=== PATIENT | female | born 1940 | race Hispanic/Latino ===

== ENCOUNTER 2017-04-01 16:24 | Inpatient (IN) | payer MEDICARE, OTHER ==
[2017-04-01 17:12] VITALS: BMI 34.7
[2017-04-01] MEDS ORDERED: Sodium Chloride 0.9% 500 ML IV STA (18:18)
[2017-04-01 18:54] LABS: PH,URINE 5.5 (4.7-8.0); URINE BILIRUBIN NEGATIVE (NEGATIVE); URINE BLOOD SMALL (NEGATIVE); URINE GLUCOSE (UA) NEGATIVE (NEGATIVE); URINE KETONE NEGATIVE (NEGATIVE); URINE LEUKOCYTE ESTERASE SMALL Leu/uL (NEGATIVE); URINE PROTEIN 100 mg/dL (<30 mg/dL)
[2017-04-01 18:59] LABS: URINE APPEARANCE CLOUDY (CLEAR); URINE COLOR YELLOW (YELLOW)
[2017-04-01 19:02] LABS: ADD MANUAL DIFF? NO
[2017-04-01 19:15] LABS: URINE AMORPHOUS SEDIMENT SMALL; URINE BACTERIA MOD (NEG); URINE WBC 20 - 25 /hpf (0-6)
[2017-04-01 19:17] LABS: BASO # 0.02 K/mm3 (0.0-2.0); BASO % 0.3 % (0.0-3.0); EOS % 0.4 % (1.5-5.0); GRAN # 5.52 (1.4-6.5); GRAN % 75.8 % (50.0-68.0); HEMATOCRIT 45.7 % (36.0-48.0); LYMPH # 1.2 (1.2-3.4); LYMPH % 16.8 % (22.0-35.0); MEAN CORPUSCULAR HEMOGLOBIN 31.1 pg (25.0-35.0); MEAN CORPUSCULAR HGB CONC 34.6 g/dl (31.0-37.0); MEAN PLATELET VOLUME 9.1 fl (7.0-11.0); MONO # 0.5 (0.1-0.6); MONO % 6.7 % (1.0-6.0); PLATELET COUNT 299 10^3/uL (120.0-450.0); RED CELL DISTRIBUTION WIDTH 13.2 % (11.5-14.5); WHITE BLOOD COUNT 7.3 10^3/ul (4.5-11.0)
[2017-04-01 19:22] LABS: ALB/GLOB RATIO 1.2 (1.1-1.8); ALKALINE PHOSPHATASE 81 U/L (38-133); ALT/SGPT 27 U/L (7-56); AST/SGOT 48 U/L (15-39); BILIRUBIN,TOTAL 1.1 mg/dL (0.2-1.3); BLOOD UREA NITROGEN 26 mg/dL (7-21); CALCIUM 10.2 mg/dL (8.4-10.5); CARBON DIOXIDE 24 mmol/L (21-33); CHLORIDE 100 mmol/L (98-107); GFR AFRICAN-AMERICAN > 60; GLUCOSE,RANDOM 98 mg/dL (70-110); POTASSIUM 4.2 mmol/L (3.6-5.0); SODIUM 137 mmol/L (132-148); TOTAL PROTEIN 8.3 g/dL (5.8-8.3)
[2017-04-01] MEDS ORDERED: cefTRIAXone 1 gm 1 GM/100 ML BAG IVPB STA (20:20)
--- NOTE | 2017-04-01 20:54 | ED PDOC ---
Arrival/HPI - General Chief Complaint: Weakness/Neurological Deficit Time Seen by Provider: 04/01/17 17:18 Historian: Patient, Family - History of Present Illness Narrative History of Present Illness (Text): 04/01/17 20:49 77yr old female presents today sent in by dr. wallace for dehydration and UTI. Per patient and family she has not been eating for the past 3 days. She is complaining of weakness and fatigue. She denies dysuria or urinary frequency. Denies chest pain or shortness of breath. Denies fevers at home. No vomiting patient denies dizziness. Denies headaches. Symptom Onset: Gradual Symptom Course: Worsening Quality: Aching Severity Level: 2 Past Medical History - Provider Review Nursing Documentation Reviewed: Yes - Travel History Have you recently traveled outside [place] w/in the past 3 mons?: No - Infectious Disease Hx of Infectious Diseases: None - Neurological Hx Dementia: Yes - Psychiatric Hx Substance Use: No - Anesthesia Hx Anesthesia: No Family/Social History - Physician Review Nursing Documentation Reviewed: Yes Family/Social History: Unknown Family HX Smoking Status: Never Smoked Hx Alcohol Use: No Hx Substance Use: No Allergies/Home Meds Allergies/Adverse Reactions: Allergies No Known Allergies Allergy (Verified 04/01/17 17:12) Home Medications: Home Meds Medication Instructions Recorded Confirmed Memantine HCl/Donepezil HCl 1 tab PO DAILY 04/01/17 04/01/17 [Namzaric Titration Pack] Review of Systems - Review of Systems Constitutional: Fatigue. absent: Fevers Respiratory: absent: SOB, Cough Cardiovascular: absent: Chest Pain, Palpitations Gastrointestinal: Abdominal Pain, Appetite Changes. absent: Constipation, Diarrhea, Nausea, Vomiting Genitourinary Female: absent: Dysuria, Frequency, Hematuria Musculoskeletal: absent: Arthralgias, Back Pain, Neck Pain Skin: absent: Rash, Pruritis Neurological: absent: Headache Physical Exam Vital Signs Reviewed: Yes Vital Signs Temp Pulse Resp BP Pulse Ox 04/01/17 21:11 95 H 17 152/95 H 98 04/01/17 20:24 95 H 17 137/93 H 98 04/01/17 17:16 97.9 F 92 H 18 119/80 95 Temperature: Afebrile Blood Pressure: Normal Pulse: Regular Respiratory Rate: Normal Appearance: Positive for: Well-Appearing, Non-Toxic, Comfortable Pain Distress: None Mental Status: Positive for: Alert and Oriented X 3 - Systems Exam Head: Present: Atraumatic Mouth: Present: Dry Neck: Present: Normal Range of Motion Respiratory/Chest: Present: Clear to Auscultation Cardiovascular: Present: Regular Rate and Rhythm Abdomen: Present: Tenderness (minimal lower abdominal tenderness), Normal Bowel Sounds. No: Distention, Peritoneal Signs, Rebound, Guarding, Hernias Lower Extremity: No: Edema Neurological: Present: GCS=15, Speech Normal Skin: Present: Warm, Dry Psychiatric: Present: Alert, Oriented x 3 Medical Decision Making ED Course and Treatment: 04/01/17 20:55 77yr old female with decreased appetite and abdominal and dehydration. cbc: wbc cmp: bun 26 cr ua + wbcs + bacteria blood and urine culture pending ekg; normal sinus rhythm at 92 bpm normal axis normal intervals no ST elevations CT abd/pelvis; FINDINGS: Limitations: Motion artifact - mild. Lack of intravenous contrast. Lower thorax: Minimal atelectasis/scarring. ABDOMEN: Liver: Hepatic cyst. Gallbladder and bile ducts: No calcified stones. No ductal dilation. Pancreas: Unremarkable. No ductal dilation. Spleen: No splenomegaly. Adrenals: No mass. Kidneys and ureters: No renal calculi. No hydronephrosis. Stomach and bowel: Several diverticula within sigmoid colon. No associated inflammatory stranding. No definite mural thickening. Few mildly distended loops of small bowel, likely ileus. Appendix: Normal caliber. No inflammation. PELVIS: Bladder: Unremarkable. No stones. Reproductive: Enlarged, lobulated uterus with scattered coarse calcifications. ABDOMEN and PELVIS: Intraperitoneal space: No significant fluid collection. No free air. Bones/joints: Degenerative changes of hips and spine. No acute fracture. Soft tissues: Unremarkable. Vasculature: Unremarkable. No aneurysm. Lymph nodes: Multiple enlarged paraaortic lymph nodes, up to 2.7 cm short axis. IMPRESSION: 1. Retroperitoneal lymphadenopathy. Clinical correlation and follow up are recommended. 2. Probable fibroid uterus. 3. Incidental/non-acute findings are described above. rocephin 1g IV 04/01/17 22:42 pt eating in er. 04/01/17 23:[address] chandler choudhary; will admit observational status to med/ surg for dehydration and UTI. impression; dehydration, uti. observational status to med/surg 04/01/17 23:01 - Lab Interpretations Lab Results: 04/01/17 18:20 04/01/17 18:20 Lab Results 04/01/17 18:20: WBC 7.3, RBC 5.08, Hgb 15.8, Hct 45.7, MCV 90.0, MCH 31.1, MCHC 34.6, RDW 13.2, Plt Count 299, MPV 9.1, Gran % 75.8 H, Lymph % (Auto) 16.8 L, Perkins % (Auto) 6.7 H, Eos % (Auto) 0.4 L, Baso % (Auto) 0.3, Gran # 5.52, Lymph # 1.2, Perkins # 0.5, Eos # 0.0, Baso # 0.02 04/01/17 18:20: Sodium 137, Potassium 4.2, Chloride 100, Carbon Dioxide 24, Anion Gap 17, BUN 26 H, Creatinine 0.9, Est GFR ( Amer) > 60, Est GFR ( Non-Af Amer) > 60, Random Glucose 98, Calcium 10.2, Total Bilirubin 1.1, AST 48 H, ALT 27, Alkaline Phosphatase 81, Total Protein 8.3, Albumin 4.5, Globulin 3.8 , Albumin/Globulin Ratio 1.2 04/01/17 18:20: Urine Color Yellow, Urine Appearance Cloudy, Urine pH 5.5, Ur Specific [place] >= 1.030, Urine Protein 100 H, Urine Glucose (UA) Negative, Urine Ketones Negative, Urine Blood Small H, Urine Nitrate Negative, Urine Bilirubin Negative, Urine Urobilinogen 2.0 H, Ur Leukocyte Esterase Small H, Urine RBC 2 - 5, Urine WBC 20 - 25, Ur Epithelial Cells 10 - 12, Amorphous Sediment Small, Urine Bacteria Mod, Urine Other Sulfa cr - RAD Interpretation Radiology Orders: 04/01/17 18:18 ABD & PELVIS W/O PO OR IV CONT [CT] Stat 04/01/17 20:51 CHEST ONE VIEW [RAD] Stat - Medication Orders Current Medication Orders: Sodium Chloride (Sodium Chloride 0.9%) 1,000 mls @ 100 mls/hr IV .Q10H PAMELA Discontinued Medications Sodium Chloride (Sodium Chloride 0.9%) 500 mls @ 999 mls/hr IV .Q31M STA Stop: 04/01/17 18:48 Last Admin: 04/01/17 18:20 Dose: 999 mls/hr Ceftriaxone Sodium (Rocephin 1 Gram Ivpb) 1 gm in 100 mls @ 200 mls/hr IVPB STAT STA PRN Reason: Protocol Stop: 04/01/17 20:49 Last Admin: 04/01/17 21:06 Dose: 200 mls/hr Disposition/Present on Arrival - Present on Arrival Any Indicators Present on Arrival: No History of DVT/PE: No History of Uncontrolled Diabetes: No Urinary Catheter: No History of Decub. Ulcer: No History Surgical Site Infection Following: None - Disposition Have Diagnosis and Disposition been Completed?: Yes Diagnosis: Dehydration, Urinary tract infection Disposition: HOSPITALIZED Disposition Time: 22:43 Patient Problems: Current Active Problems Problem Status Onset Dehydration Acute Urinary tract infection Acute Condition: FAIR Referrals: Darinel Wallace MD [Primary Care Provider] - Follow up with primary
--- NOTE | 2017-04-01 22:11 | CT ---
EXAM: CT Abdomen and Pelvis Without Intravenous Contrast CLINICAL HISTORY: 77 years old, female; Pain; Abdominal pain; Acute TECHNIQUE: Axial computed tomography images of the abdomen and pelvis without intravenous contrast. This CT exam was performed using one or more of the following dose reduction techniques: automated exposure control, adjustment of the mA and/or kV according to patient size, and/or use of iterative reconstruction technique. Coronal and sagittal reformatted images were created and reviewed. COMPARISON: No relevant prior studies available. FINDINGS: Limitations: Motion artifact - mild. Lack of intravenous contrast. Lower thorax: Minimal atelectasis/scarring. ABDOMEN: Liver: Hepatic cyst. Gallbladder and bile ducts: No calcified stones. No ductal dilation. Pancreas: Unremarkable. No ductal dilation. Spleen: No splenomegaly. Adrenals: No mass. Kidneys and ureters: No renal calculi. No hydronephrosis. Stomach and bowel: Several diverticula within sigmoid colon. No associated inflammatory stranding. No definite mural thickening. Few mildly distended loops of small bowel, likely ileus. Appendix: Normal caliber. No inflammation. PELVIS: Bladder: Unremarkable. No stones. Reproductive: Enlarged, lobulated uterus with scattered coarse calcifications. ABDOMEN and PELVIS: Intraperitoneal space: No significant fluid collection. No free air. Bones/joints: Degenerative changes of hips and spine. No acute fracture. Soft tissues: Unremarkable. Vasculature: Unremarkable. No aneurysm. Lymph nodes: Multiple enlarged paraaortic lymph nodes, up to 2.7 cm short axis. IMPRESSION: 1. Retroperitoneal lymphadenopathy. Clinical correlation and follow up are recommended. 2. Probable fibroid uterus. 3. Incidental/non-acute findings are described above.
[2017-04-01] MEDS ORDERED: Sodium Chloride 0.9% 1,000 ML IV SCH (22:45)
--- NOTE | 2017-04-02 08:19 | RAD ---
PROCEDURE: CHEST RADIOGRAPH, 1 VIEW HISTORY: abd pain/dehydration COMPARISON: Comparison chest 12/12/2015 FINDINGS: LUNGS: Poor inspiration with low lung volumes, mild crowded bronchovascular markings and mild bibasilar atelectasis. Small nodular density left upper lung field of located between the left posterior 5th and 6th ribs could represent vessel on end artifact versus small granuloma unchanged. PLEURA: No pneumothorax or pleural fluid seen. CARDIOVASCULAR: Normal. OSSEOUS STRUCTURES: No significant abnormalities. VISUALIZED UPPER ABDOMEN: Normal. OTHER FINDINGS: None. IMPRESSION: Poor inspiration with low lung volumes, mild crowded bronchovascular markings and mild bibasilar atelectasis. Small nodular density left upper lung field of located between the left posterior 5th and 6th ribs could represent vessel on end artifact versus small granuloma unchanged.
[2017-04-02] MEDS: cefTRIAXone 1 gm 1 GM/100 ML BAG IVPB SCH (10:30)
--- NOTE | 2017-04-02 14:50 | HP ---
HISTORY OF PRESENT ILLNESS: A 77-year-old white female with a history of mild dementia and mild cogn itive impairment on donepezil and Namenda. The patient had an acute episode approximately 3-4 days l oss of appetite, loss of balance, extreme fatigue, not getting out of bed, not eating, not drinking, seen in the office and found to have a urinary tract infection with dehydration, admitted to the ER. The patient also had difficulty ambulating and weakness in both lower extremities. On admission, esther bill was found to have pyuria and bacteriuria, otherwise unremarkable except for CT of the abdomen showe d diffuse retroperitoneal lymphadenopathy. PHYSICAL EXAMINATION: GENERAL: The patient is without complaints. She is more stable this morning. She has somewhat of a n appetite this morning. HEENT: Within normal limits. HEART: Regular sinus rhythm. CHEST: Clear to auscultation and percussion. ABDOMEN: Obese, but benign. EXTREMITIES: Without cyanosis, clubbing or edema. PLAN: To start physical therapy and occupational therapy. Discussed possible biopsy of retroperiton eal lymphadenopathy and continue IV antibiotics and hydration. Darinel Wallace MD cc: [id number] TT: 04/02/2017 14:49:27 tn
--- NOTE | 2017-04-02 17:41 | CARD ---
APPROVED REPORT EKG Measurement Heart [id number] HI 130P18 [id number] <Conclusion> Normal sinus rhythm Normal ECG
--- NOTE | 2017-04-03 08:52 | PN ---
DATE: 04/03/2017 A 77-year-old white female admitted to the hospital with dehydration, urinary tract infection. She w as found to have intra-abdominal lymphadenopathy on CT. Not eating, not drinking, change in mental s tatus, confusion. The patient is still sleeping, urinating excessively. Vital signs are stable. Sh landy is afebrile. She responded to antibiotics and steroids. Gram-negative rods in her urine. Blood c ultures are negative. I will discuss the lymphadenopathy with Dr. Gregg Lockwood as far as a possible b iopsy and a neurological consultation because of her disordered mentation. Darinel Wallace MD cc: [id number] TT: 04/03/2017 08:51:21 Confirmation # [id number] Dictation # [id number] en
[2017-04-03] MEDS: cefTRIAXone 1 gm 1 GM/100 ML BAG IVPB SCH (09:53)
[2017-04-03 13:15] LABS: INR 1.09 (0.93-1.08); PARTIAL THROMBOPLASTIN TIME 26.5 Seconds (23.7-30.8)
--- NOTE | 2017-04-03 14:15 | CON ---
DATE: 04/03/2017 HISTORY OF PRESENT ILLNESS: A 77-year-old female with a past medical history of mild dementia and ca me from Dr. Wallace's office for dehydration and UTI, has not been eating for the last 3 days and d enies any nausea or vomiting, no shortness of breath, and difficulty ambulating. PAST MEDICAL HISTORY: As above. SOCIAL HISTORY: Does not smoke, does not drink. ALLERGIES: No known drug allergies. HOME MEDICATIONS: Aricept, Namenda, Namzaric. REVIEW OF SYSTEMS: A 10-point review of system was negative except fatigue. PHYSICAL EXAMINATION: VITAL SIGNS: Blood pressure 137/93. HEENT: Normocephalic, atraumatic. NECK: Supple. NEUROLOGIC: Awake, alert, oriented to self, not to the time, does not know the month and year. The patient had loss of appetite, loss of balance and fatigue and was not getting out of bed. HEENT: Normocephalic, atraumatic. NECK: Supple. NEUROLOGIC: Awake, alert, oriented x 3. No aphasia. Cranial nerves II-XII were tested. Pupils john ctive. EOM intact. No facial asymmetry. Tongue midline. Motor examination: Moves all the extremi ties equally. Tone normal. Deep tendon reflexes are 1+. Both plantars are downgoing. Sensory soraida sly intact. No asymmetry. Tongue midline. Able to stand and bear weight on the feet. IMPRESSION: Deconditioned, fatigue and tiredness. The patient had IV fluids and hydrated and now fe eling better. CT of the abdomen and pelvis showed retroperitoneal lymphadenopathy and workup is in p rogress. PLAN: Continue present management. We will follow up. Dallin Dunlap MD cc: [id number] TT: 04/03/2017 14:15:24 Confirmation # [id number] Dictation # [id number] kecia
[2017-04-03] MEDS ORDERED: Midazolam 2 MG/2 ML VIAL ONE (14:45)
[2017-04-03] MEDS ORDERED: Oxycodone/Acetaminophen 5/325 mg Tab PO PRN (15:27)
--- NOTE | 2017-04-03 16:20 | CP.PCM.PCO ---
Physician Communication Note - Physician Communication Note Physician Communication Note: pt has dementia with mild delirium from uti/ dehydration. c/w PT/OT,sign off
[2017-04-03] MEDS: Sodium Chloride 0.45% 1,000 ML IV SCH (17:30)
--- NOTE | 2017-04-03 17:43 | CT ---
PROCEDURE: CT guided left periaortic lymph node biopsy. HISTORY: Enlarged retroperitoneal lymph nodes. Evaluate for lymphoma versus metastatic disease. PHYSICIAN(S): Gregg Lockwood MD. TECHNIQUE: The relative risks and indications of the procedure were explained to the patient and her and consent obtained. The patient was placed prone on the CT scanner and preliminary images through the mid abdomen obtained. Conscious sedation and monitoring were provided throughout the procedure by a nurse. Enlarged left periaortic lymphadenopathy below the renal vessels was elected for biopsy. A left paraspinal approach was selected and the area prepped and draped in the usual sterile fashion. 1% Xylocaine was used to anesthetize the skin and soft tissues. A 17-gauge guiding needle was advanced into the 4.5 cm left periaortic lymphadenopathy. Its position was confirmed with CT. Using coaxial technique, multiple core biopsies were obtained. The postprocedure images show no evidence of significant hemorrhage. IMPRESSION: 1. CT-guided left periaortic lymph node biopsy as described above. Specimens were sent for histology and flow cytometry
[2017-04-03] MEDS ORDERED: Gadodiamide 287 MG/ML VIAL (15ML) IV ONE (19:35)
--- NOTE | 2017-04-03 20:34 | MRI ---
EXAM: MR Head Without and With Intravenous Contrast CLINICAL HISTORY: The patient age is 77 years old and is female; Signs and symptoms; Altered mental status/memory loss; Confusion or disorientation Facility exam id and description: Mri br cs brain w wo contrast TECHNIQUE: Magnetic resonance images of the head/brain without and with intravenous contrast in multiple planes. CONTRAST: 15 mL of Omniscan administered intravenously. EXAM DATE/TIME: 04/03/2017 8:38 AM COMPARISON: No relevant prior studies available. FINDINGS: Brain: There is no restricted diffusion within the brain to suggest acute ischemic change. There are multiple foci of high FLAIR signal intensity within the cerebral white matter. There is no mass effect or restricted diffusion associated with these foci. In a patient this age, this likely represents chronic small vessel ischemic disease. There is prominence of the ventricles and sulci, compatible with atrophy. Small foci of T2 hyperintensity are seen within the bilateral basal ganglia and right thalamus, consistent with chronic ischemic change. No abnormally enhancing intracranial mass is visualized. No cerebral edema. Ventricles: See above. Bones/joints: No acute abnormality. Sinuses: There is minimal mucosal thickening of scattered ethmoid air cells. No acute sinusitis. Mastoid air cells: No mastoid effusion. Orbits: No acute abnormality, as visualized. IMPRESSION: 1. There is no restricted diffusion within the brain to suggest acute ischemic change. 2. There are multiple foci of high FLAIR signal intensity within the cerebral white matter. In a patient this age, this likely represents chronic small vessel ischemic disease. 3. Atrophy. 4. Additional chronic ischemic changes are noted above. 5. Incidental/non-acute findings are described above.
[2017-04-04 03:21] LABS: TOTAL PROTEIN, SERUM 6.1 g/dL (6.1-8.1)
[2017-04-04 07:14] LABS: HEMATOCRIT 37.9 % (36.0-48.0); MEAN CELL VOLUME 90.2 fL (80.0-105.0); MEAN CORPUSCULAR HGB CONC 33.2 g/dl (31.0-37.0); MEAN PLATELET VOLUME 8.9 fl (7.0-11.0); RED CELL DISTRIBUTION WIDTH 13.7 % (11.5-14.5); WHITE BLOOD COUNT 5.5 10^3/ul (4.5-11.0)
[2017-04-04 07:34] LABS: BLOOD UREA NITROGEN 9 mg/dL (7-21); CALCIUM 8.8 mg/dL (8.4-10.5); CARBON DIOXIDE 25 mmol/L (21-33); CHLORIDE 104 mmol/L (98-107); GFR AFRICAN-AMERICAN > 60; GLUCOSE,RANDOM 86 mg/dL (70-110); POTASSIUM 3.4 mmol/L (3.6-5.0); SODIUM 137 mmol/L (132-148)
[2017-04-04 07:57] VITALS: RESP 20; O2SAT 100
[2017-04-04] MEDS ORDERED: MethylPREDNISolone Depo 40 mg/ml Inj IM ONE (08:35)
[2017-04-04] MEDS ORDERED: Bupivacaine 0.5% Inj(30mL) IJ ONE (08:35)
--- NOTE | 2017-04-04 08:52 | PN ---
DATE: 04/04/2017 SUBJECTIVE: A 77-year-old white female with a history of dementia and urosepsis, change in mental st atus, diffuse intraabdominal and pelvic lymphadenopathy, abnormal uterus on CAT scan. The patient petersen d a transabdominal CT-guided biopsy by Dr. Gregg Lockwood of her lymph nodes which are waiting for patho logy. The patient is stable. Vital signs are stable. She is less ____. She is still complaining of being weak, but she is tolerating her diet well. She has less urinary tract symptoms and she is afebrile. The patient most likely will be discharged home today if stable, to follow up with gynecology as an outpatient and follow up on the pathology as an outpatient. Darinel Wallace MD cc: [id number] TT: 04/04/2017 08:51:39 Confirmation # [id number] Dictation # [id number] tn
--- NOTE | 2017-04-04 09:34 | CON ---
DATE: 04/04/2017 A 77-year-old female in 567, bed 1. Dr. Wallace is the physician. I was asked to see her for bila teral knee pain and bilateral hip pain. She has more pain in the left knee than the right. She has had it for 2 or 3 years. She used to be a armed guard. No history of injury, but there is defini te evidence of osteoarthritis of both knees, left worse than the right, with medial joint line pain a nd I can feel osteophytes. Her range of motion: She lacks to full extension but could flex to 100 d egrees, basically the same bilaterally. But the right hip is more stiff than the left hip with decre ased internal rotation, so I am anxious to see the x-rays of the hips and the knees. Neither one wer e done yet, so I will wait to see those. But, because of her pain factor and the chance that she gregoria ht go home today, I injected the left knee with Depo-Medrol and Marcaine which will have to be done a nyway, and I will see the response to that. Depending on the response of the left knee, we will do s omething to the right knee, like another injection, when the x-rays to come back. In the meantime, I will just give physical therapy, ambulation with a walker. FINAL DIAGNOSES: Bilateral knee pain, suspect osteoarthritis. Right worse than left hip discomfort, suspect osteoarthritis. I will get another report after the x-rays are back. Trev Goddard DO cc: [id number] TT: 04/04/2017 09:33:31 Confirmation # [id number] Dictation # [id number] mn
[2017-04-04] MEDS: cefTRIAXone 1 gm 1 GM/100 ML BAG IVPB SCH (11:23)
[2017-04-04] MEDS: Sodium Chloride 0.45% 1,000 ML IV SCH (11:24)
--- NOTE | 2017-04-04 13:48 | RAD ---
PROCEDURE: Bilateral Knee Radiographs. HISTORY: knee pain COMPARISON: None. FINDINGS: BONES: Bone alignment and mineralization are normal. There is no acute fracture or bone destruction. JOINTS: There is severe tricompartmental degenerative osteoarthrosis with reduced joint spaces, marginal osteophytes and chondrocalcinosis, worse in the medial compartments and worse in the left knee with loose bodies. SOFT TISSUES: Right Knee: Normal. Left Knee: Normal. JOINT EFFUSION: There is a moderate left suprapatellar joint effusion. OTHER FINDINGS: None. IMPRESSION: Severe tricompartmental degenerative osteoarthrosis, worse in the medial compartments and worse in the left knee joint.
--- NOTE | 2017-04-04 13:54 | RAD ---
PROCEDURE: Radiographs of the pelvis. HISTORY: Pain COMPARISON: None. FINDINGS: BONES: The pelvic ring is intact. There is no acute fracture or bone destruction. There is diffuse bone demineralization. . JOINTS: There is severe degenerative osteoarthrosis in the right hip joint with loss of superolateral joint space and mild degenerative osteoarthrosis in the left hip joint. There is mild degenerative osteoarthrosis in the sacroiliac joints and mild osteitis pubis. OTHER FINDINGS: There are multiple phleboliths in the pelvis. IMPRESSION: 1. Severe right and mild left degenerative osteoarthrosis in the hip joints. 2. No acute fracture or dislocation.
[2017-04-04 16:32] VITALS: BP 149/104; PULSE 109; TEMP 97.4
--- NOTE | 2017-04-05 11:36 | DS ---
The patient is a 77-year-old white female admitted to the hospital with change in mental status, conf usion, disorientation, dehydration, urinary tract infection, urosepsis and dementia. The patient was also found because of inability to not eating and drinking for several days and weight loss, on CT o f the abdomen and pelvis was found to have marked lymphadenopathy and also enlarged irregular uterus. The patient had a CT-guided biopsy by Dr. Gregg Lockwood of her pelvic lymph nodes, the report is pend ing. The patient also had a brain MRI which did not show any evidence of acute infarcts. There were multiple foci in the cerebral matter, chronic small vessel disease, atrophy, chronic ischemic change s, otherwise unremarkable. The patient did have some x-rays because of knee and pelvic pain by Dr. Susan swain. There was severe right and left degenerative osteoarthritis of the hip joints. The kne e showed severe tricompartmental degenerative arthritis, right is worse in the medial compartment, so me worse in the left knee joint bilaterally. The patient had an injection by Dr. Goddard. Afte r her CT-guided biopsy, she was able to be discharged home in an improved condition to be followed as an outpatient. She will complete a course of antibiotics for her bladder infection and she will be also having a gynecological consultation as an outpatient. FINAL DISCHARGE DIAGNOSES: Diffuse intra-abdominal lymphadenopathy, urosepsis, dementia, severe knee and hip osteoarthritis, and dehydration. Darinel Wallace MD cc: [id number] TT: 04/05/2017 11:36:18
[2017-04-08 06:28] LABS: BETA 1 GLOBULIN 0.3 g/dL (0.4-0.6); BETA 2 GLOBULIN 0.3 g/dL (0.2-0.5)
== END 2017-04-04 18:35 | disposition home or self-care (01) | DRG 629 ==
LOC: ED 16:24 → ERH 23:01 → 5RNO 04-02 02:36 → OBSVTOIN 04-02 16:00
PROVIDERS: ADMIT Internal Medicine; ATTEND Internal Medicine
PROC: 07BD3ZX Excision of Aortic Lymphatic, Percutaneous Approach, Diagnostic (ICD-10-PCS; principal; 2017-04-03 14:30)
PROC: 3E0U33Z Introduction of Anti-inflammatory into Joints, Percutaneous Approach (ICD-10-PCS; 2017-04-04)
PROC: 3E0U3BZ Introduction of Anesthetic Agent into Joints, Percutaneous Approach (ICD-10-PCS; 2017-04-04)
DX: E86.0 Dehydration (principal); R59.1 Generalized enlarged lymph nodes; N39.0 Urinary tract infection, site not specified; F03.90 Unspecified dementia, unspecified severity, without behavioral disturbance, psychotic disturbance, mood disturbance, and anxiety; M17.0 Bilateral primary osteoarthritis of knee; M16.0 Bilateral primary osteoarthritis of hip

== ENCOUNTER 2017-04-24 11:39 | Day surgery (SDC) | payer MEDICARE, OTHER ==
[2017-04-24 12:24] VITALS: BMI 33.6
--- NOTE | 2017-04-24 12:57 | ED PDOC ---
Arrival/HPI - General Time Seen by Provider: 04/24/17 12:26 Historian: Patient - History of Present Illness Narrative History of Present Illness (Text): 04/24/17 12:57 A 77 year old female, whose past medical history includes dementia, was sent to the emergency department by Dr. Lockwood for port placement. Patient denies any pain or any other complaints at this time. Oncologist: Dr. Stevenson Activities at Onset: Rest Modifying Factors (Text): none Context: Home Associated Symptoms (Text): none Past Medical History - Provider Review Nursing Documentation Reviewed: Yes - Infectious Disease Hx of Infectious Diseases: None - Neurological Hx Dementia: Yes - Musculoskeletal/Rheumatological Hx Falls: No - Psychiatric Hx Substance Use: No - Anesthesia Hx Anesthesia: No Family/Social History - Physician Review Nursing Documentation Reviewed: Yes Family/Social History: No Known Family HX Smoking Status: Never Smoked Hx Alcohol Use: Yes (ocassionally) Hx Substance Use: No Allergies/Home Meds Allergies/Adverse Reactions: Allergies No Known Allergies Allergy (Verified 04/01/17 17:12) Home Medications: Home Meds Medication Instructions Recorded Confirmed Memantine HCl/Donepezil HCl 1 tab PO DAILY 04/01/17 04/24/17 [Namzaric Titration Pack] Rosuvastatin Calcium [Crestor] 5 mg PO DAILY 04/02/17 04/24/17 Vortioxetine Hydrobromide 20 mg PO DAILY 04/02/17 04/24/17 [Trintellix] Review of Systems - Physician Review All systems were reviewed & negative as marked: Yes - Review of Systems Constitutional: absent: Fevers Cardiovascular: absent: Chest Pain Gastrointestinal: absent: Abdominal Pain Neurological: absent: Headache Physical Exam Vital Signs Reviewed: Yes Vital Signs Temp Pulse Resp BP Pulse Ox 04/24/17 12:22 98.1 F 100 H 18 132/94 H 98 Temperature: Afebrile Blood Pressure: Hypertensive Pulse: Tachycardic Respiratory Rate: Normal Appearance: Positive for: Well-Appearing, Non-Toxic, Comfortable Pain Distress: None Mental Status: Positive for: Alert and Oriented X 3 Finger Stick Blood Glucose: 86 - Systems Exam Head: Present: Atraumatic, Normocephalic Pupils: Present: PERRL Extroacular Muscles: Present: EOMI Conjunctiva: Present: Normal Mouth: Present: Moist Mucous Membranes Neck: Present: Normal Range of Motion Respiratory/Chest: Present: Clear to Auscultation, Good Air Exchange. No: Respiratory Distress, Accessory Muscle Use Cardiovascular: Present: Tachycardic. No: Murmurs Abdomen: Present: Normal Bowel Sounds. No: Tenderness, Distention, Peritoneal Signs Back: Present: Normal Inspection Upper Extremity: Present: Normal Inspection. No: Cyanosis, Edema Lower Extremity: Present: Normal Inspection. No: Edema Neurological: Present: GCS=15, CN II-XII Intact, Speech Normal Skin: Present: Warm, Dry, Normal Color. No: Rashes Psychiatric: Present: Alert, Oriented x 3, Normal Insight, Normal Concentration Medical Decision Making ED Course and Treatment: 04/24/17 12:54 Impression: A 77 year old female sent by Dr. Lockwood for port placement. Plan: -- EKG -- chest xray -- labs -- Reassess and disposition Prior Visits: Notes and results from previous visits were reviewed. Patient last reported to the emergency department on 04/01/17 for evaluation of weakness, fatigue, abdominal pain and appetite changes. Patient admitted to Med/ Surg for dehydration and UTI. Patient was discharged on 04/05/17. Progress Notes: EKG: Ordered, reviewed, and independently interpreted the EKG. Rate : 101 BPM Rhythm : Sinus tachycardic Interpretation : Normal interval, normal axis 04/24/17 13:03 Nurse for vascular is calling for patient. - Lab Interpretations Lab Results: Lab Results 04/24/17 12:29: POC Glucose (mg/dL) 86 I have reviewed the lab results: Yes - RAD Interpretation Radiology Orders: 04/24/17 12:27 CHEST PORTABLE [RAD] Stat 04/24/17 13:01 CAR PERIPHERAL VASCULAR ORDER [VASCULAR] Stat - EKG Interpretation Interpreted by ED Physician: Yes Type: 12 lead EKG - Medication Orders Current Medication Orders: Acetaminophen (Tylenol 325mg Tab) 650 mg PO Q4 PRN PRN Reason: Pain, Mild (1-3) Sodium Chloride (Sodium Chloride 0.45%) 1,000 mls @ 80 mls/hr IV .[id number] [facility]A Ondansetron HCl (Zofran Inj) 4 mg IVP Q6H PRN PRN Reason: Nausea/Vomiting Oxycodone/Acetaminophen (Percocet 5/325 Mg Tab) 1 tab PO Q4H PRN PRN Reason: Pain, moderate (4-7) Stop: 04/27/17 15:23 Discontinued Medications Cefazolin Sodium (Ancef) Confirm Administered Dose 1 gm .ROUTE .STK-MED ONE Stop: 04/24/17 13:10 Last Admin: 04/24/17 14:21 Dose: 1 gm Fentanyl (Fentanyl) Confirm Administered Dose 100 mcg .ROUTE .STK-MED ONE Stop: 04/24/17 13:11 Last Admin: 04/24/17 14:21 Dose: 100 mcg Comments: Dr. Jose Lockwood adm. Fentanyl 50 mcg IV @ 1421, an additional dose of Fentanyl 50 mcg IV was given @ 1430 Fentanyl (Fentanyl) Confirm Administered Dose 100 mcg .ROUTE .STK-MED ONE Stop: 04/24/17 14:30 Last Admin: 04/24/17 14:36 Dose: 100 mcg Comments: Fentanyl 50 mcg IV was given @ 1436 and 1443 Heparin Sodium (Porcine) (Heparin 1000 Units/500 Ml Ns) Confirm Administered Dose 1,000 mls @ ud IV .STK-MED ONE Stop: 04/24/17 13:11 Lidocaine HCl (Lidocaine 2% 20ml Vial) Confirm Administered Dose 20 ml .ROUTE .STK-MED ONE Stop: 04/24/17 13:10 Midazolam HCl (Versed Inj) Confirm Administered Dose 2 mg .ROUTE .STK-MED ONE Stop: 04/24/17 13:11 Last Admin: 04/24/17 14:21 Dose: 2 mg Comments: Dr. Jose Lockwood adm. Versed 1.5 mg IV @ 1421, an additional dose of Versed 0.5 mg IV was given @ 1430. Midazolam HCl (Versed Inj) Confirm Administered Dose 2 mg .ROUTE .STK-MED ONE Stop: 04/24/17 14:30 Last Admin: 04/24/17 14:36 Dose: 2 mg Comments: Versed 1 mg IV was given @ 1436 and 1443 - Scribe Statement The provider has reviewed the documentation as recorded by the Stevie Bee Provider Scribe Attestation: All medical record entries made by the Scribe were at my direction and personally dictated by me. I have reviewed the chart and agree that the record accurately reflects my personal performance of the history, physical exam, medical decision making, and the department course for this patient. I have also personally directed, reviewed, and agree with the discharge instructions and disposition. Disposition/Present on Arrival - Present on Arrival Any Indicators Present on Arrival: No History of DVT/PE: No History of Uncontrolled Diabetes: No Urinary Catheter: No History Surgical Site Infection Following: None - Disposition Have Diagnosis and Disposition been Completed?: Yes Diagnosis: Admission for fitting of portacath Disposition: HOSPITALIZED Disposition Time: 13:00 Condition: STABLE
[2017-04-24] MEDS ORDERED: Lidocaine 2% Inj (20ml) ONE (13:09)
[2017-04-24] MEDS ORDERED: Midazolam 2 MG/2 ML VIAL ONE ×2 (13:10→14:29)
--- NOTE | 2017-04-24 13:17 | RAD ---
HISTORY: r/o infiltrate COMPARISON: 04/01/2017 FINDINGS: LUNGS: No active pulmonary disease. PLEURA: No significant pleural effusion identified, no pneumothorax apparent. CARDIOVASCULAR: Normal. OSSEOUS STRUCTURES: No significant abnormalities. VISUALIZED UPPER ABDOMEN: Normal. OTHER FINDINGS: None. IMPRESSION: No active disease.
[2017-04-24] MEDS ORDERED: Oxycodone/Acetaminophen 5/325 mg Tab PO PRN (15:22)
[2017-04-24] MEDS ORDERED: Sodium Chloride 0.45% 1,000 ML IV SCH (15:30)
[2017-04-24 15:55] VITALS: BP 157/63; PULSE 85; RESP 20; TEMP 98.7; O2SAT 98
--- NOTE | 2017-04-24 16:33 | CARD ---
APPROVED REPORT EKG Measurement Heart [id number] [place] [id number] [id number] <Conclusion> Sinus tachycardia Otherwise normal ECG
--- NOTE | 2017-04-24 19:05 | VASCULAR ---
PROCEDURE: Ultrasound and fluoroscopic right internal jugular venous access port. CLINICAL HISTORY: Abdominal small cell carcinoma.Venous port for chemotherapy. PHYSICIAN(S): Gregg Lockwood M.D. TECHNIQUE: The relative risks and indications of the procedure were explained to the patient and consent obtained. The patient was placed supine on the arteriogram table and the right neck and chest prepped and draped in the usual sterile fashion. Conscious sedation monitoring was provided throughout the procedure by a nurse. Antibiotics were given prior to the procedure. Under direct ultrasound guidance, the right internal jugular vein was punctured with a micro-puncture set. A 0.035 angled Glidewire was advanced into the IVC. A 4 cm incision was made below the right clavicle and the pocket blunted dissected. A 8 [place] single-lumen catheter, 24 cm long, was advanced to the SVC/RA junction. The catheter was trimmed and attached to the port. The port aspirates and injects easily. The port was placed in the pocket and closed in 2 layers. The patient tolerated the procedure well. IMPRESSION: Ultrasound and fluoroscopically placed right internal jugular venous access port.
== END 2017-04-24 18:16 | disposition home or self-care (01) ==
LOC: ED 11:39 → SDS 13:10
PROVIDERS: ATTEND Radiology Vascular & Interventional Radiology
DX: C34.91 Malignant neoplasm of unspecified part of right bronchus or lung (principal); F03.90 Unspecified dementia, unspecified severity, without behavioral disturbance, psychotic disturbance, mood disturbance, and anxiety
CPT/HCPCS: 36561; 71010; 76937; 77001; 82948; 93005; 99152; 99281; C1769; C1788; J0690; J1644; J2250; J2405; J3010; J7030

== ENCOUNTER 2017-06-04 11:18 | Inpatient (IN) | payer MEDICARE, OTHER ==
[2017-06-04 11:19] VITALS: BMI 33.6
[2017-06-04] MEDS ORDERED: Sodium Chloride 0.9% 1,000 ML IV STA (11:59)
--- NOTE | 2017-06-04 12:01 | ED PDOC ---
Arrival/HPI - General Chief Complaint: Weakness/Neurological Deficit Time Seen by Provider: 06/04/17 11:43 Historian: Patient - History of Present Illness Narrative History of Present Illness (Text): 06/04/17 11:38 Joi Evans is a 77 year old female, whose past medical history includes small cell carcinoma who presents to the emergency department complaining of general weakness and loss of appetite for the last few days. Patient has no other complaints at this time. Denies cp/sob/guevara. Denies n/v/abd pain. Oncologist: Dr. Stevenson Time/Duration: < week Symptom Onset: Gradual Symptom Course: Unchanged Activities at Onset: Rest Context: Home Past Medical History - Provider Review Nursing Documentation Reviewed: Yes - Infectious Disease Hx of Infectious Diseases: None - Cardiac Hx Cardiac Disorders: Yes - Pulmonary Hx Respiratory Disorders: No - Neurological Hx Dementia: Yes - HEENT Hx HEENT Disorder: No - Renal Hx Renal Disorder: No - Endocrine/Metabolic Hx Endocrine Disorders: No - Hematological/Oncological Hx Blood Disorders: Yes Hx Cancer: Yes Hx Chemotherapy: Yes - Integumentary Hx Dermatological Disorder: No - Musculoskeletal/Rheumatological Hx Musculoskeletal Disorders: No Hx Falls: No - Gastrointestinal Hx Gastrointestinal Disorders: No - Genitourinary/Gynecological Hx Genitourinary Disorders: No - Psychiatric Hx Psychophysiologic Disorder: No Hx Substance Use: No - Anesthesia Hx Anesthesia: No Family/Social History - Physician Review Nursing Documentation Reviewed: Yes Family/Social History: No Known Family HX Smoking Status: Never Smoked Hx Alcohol Use: Yes (ocassionally) Hx Substance Use: No Allergies/Home Meds Allergies/Adverse Reactions: Allergies No Known Allergies Allergy (Verified 06/04/17 11:32) Home Medications: Home Meds Medication Instructions Recorded Confirmed Memantine HCl/Donepezil HCl 1 tab PO DAILY 04/01/17 06/04/17 [Namzaric Titration Pack] Vortioxetine Hydrobromide 20 mg PO DAILY 04/02/17 06/04/17 [Trintellix] Cefadroxil [Duricef] 500 mg PO DAILY 06/04/17 06/04/17 Levocetirizine Dihydrochloride 5 mg PO DAILY 06/04/17 06/04/17 [Levocetirizine Dihydrochloride] QUEtiapine [Seroquel] 25 mg PO DAILY 06/04/17 06/04/17 Physical Exam - Physical Exam Narrative Physical Exam (Text): - Review of Systems Constitutional: absent: Fatigue, Weight Change, Fevers Eyes: Normal ENT: Normal Respiratory: Normal absent: SOB, Cough, Sputum Cardiovascular: Normal absent: Chest pain, Palpitations, Syncope Gastrointestinal: absent: Abdominal pain, Diarrhea, Nausea, Vomiting Genitourinary: Normal. absent: Dysuria, Frequency, Hematuria Musculoskeletal: Normal. absent: Arthralgias, Back Pain, Neck Pain Skin: Normal Neurological: Normal absent: Focal Weakness Endocrine: Normal Hemo/Lymphatic: Normal Psychiatric: Normal - Physical exam Patient appears age appropriate, speaking full sentences without difficulty. - Systems Exam Head: Present: Atraumatic, Normocephalic Pupils: Present: PERRL Extraocular Muscles: Present: EOMI Conjunctiva: Present: Normal Mouth: Dry oral mucosa. Neck: Present: Normal Range of Motion. No: MIDLINE TENDERNESS, Paraspinal Tenderness Respiratory/Chest: Present: Clear to Auscultation, Good Air Exchange. No: Respiratory Distress, Accessory Muscle Use, Tachypnic Cardiovascular: Present: Regular Rate and Rhythm, Normal S1, S2, Peripheral Pulses Present. No: Murmurs Abdomen: Present: Normal Bowel Sounds, No: Tenderness, Peritoneal Signs, Rebound, Guarding, Distention Back: Present: Normal Inspection. No: Midline Tenderness, Paraspinal Tenderness Upper Extremity: Present: Normal Inspection. No: Cyanosis, Edema Lower Extremity: Present: Normal Inspection. No: Edema Neurological: Present: GCS=15, Speech Normal, cranial nerves II through XII fully intact with no cerebellar abnormality, neuro-sensory fully intact. No focal neurological deficits. Skin: Present: Warm, Dry, Normal Color. No: Rashes Lymphatic: Present: OX3, NI, NC Psychiatric: Present: Alert, Oriented x 3, Normal Insight, Normal Concentration Vital Signs Reviewed: Yes Vital Signs Temp Pulse Resp BP Pulse Ox 06/04/17 11:19 98.2 F 96 H 18 121/85 98 Temperature: Afebrile Blood Pressure: Normal Pulse: Regular Respiratory Rate: Normal Appearance: Positive for: Well-Appearing Pain Distress: None Mental Status: Positive for: Alert and Oriented X 3 Medical Decision Making ED Course and Treatment: 06/04/17 11:38 Impression: 77 year old female complaining of general weakness and loss of appetite for the last few days. No acute findings on physical examination. Differential Diagnosis included but are not limited to: Dehydration vs. Pneumonia vs. UTI Plan: -- Chest X-ray -- Blood Culture -- Urine Culture and Urinalysis -- Labs -- IV Fluids -- Reassess and disposition Prior Visits: Notes and results from previous visits were reviewed. Patient last seen in the ED on 04/24/18 for port placement. Patient was admitted to hospitalist care for further evaluation. Progress Notes: EKG shows NSR at [address]-segment elevations, normal intervals. Interpreted by me. 06/04/17 14:[address] Stevenson, who recommends observation under primary service. Case discussed with Dr. Wallace, who accepts patient admission. 06/04/17 14:36 pt in no distress, aware of and agrees with plan - Lab Interpretations Lab Results: 06/04/17 12:28 06/04/17 12:28 Lab Results 06/04/17 12:28: Sodium 138, Potassium 4.2, Chloride 102, Carbon Dioxide 26, Anion Gap 14, BUN 19, Creatinine 0.8, Est GFR ( Amer) > 60, Est GFR (Non- Af Amer) > 60, Random Glucose 124 H, Calcium 10.0, Total Bilirubin 0.8, AST 27, ALT 26, Alkaline Phosphatase 70, Total Protein 7.7, Albumin 4.4, Globulin 3.3, Albumin/Globulin Ratio 1.3 06/04/17 12:28: PT 11.7, INR 1.08, APTT 26.7 06/04/17 12:28: WBC 8.1 D, RBC 4.52, Hgb 13.9, Hct 41.5, MCV 91.8, MCH 30.8, MCHC 33.5, RDW 14.8 H, Plt Count 308, MPV 9.2, Gran % 73.1 H, Lymph % (Auto) 19.1 L, [place] % (Auto) 6.5 H, Eos % (Auto) 0.9 L, Baso % (Auto) 0.4, Gran # 5.93 , Lymph # 1.6, [place] # 0.5, Eos # 0.1, Baso # 0.03 I have reviewed the lab results: Yes - RAD Interpretation Radiology Orders: 06/04/17 11:59 CHEST PORTABLE [RAD] Stat - Medication Orders Current Medication Orders: Discontinued Medications Sodium Chloride (Sodium Chloride 0.9%) 1,000 mls @ 1,000 mls/hr IV .Q1H STA Stop: 06/04/17 12:58 Last Admin: 06/04/17 13:21 Dose: 1,000 mls/hr - Scribe Statement The provider has reviewed the documentation as recorded by the Scribe Manju Quinteros Provider Scribe Attestation: All medical record entries made by the Scribe were at my direction and personally dictated by me. I have reviewed the chart and agree that the record accurately reflects my personal performance of the history, physical exam, medical decision making, and the department course for this patient. I have also personally directed, reviewed, and agree with the discharge instructions and disposition. Disposition/Present on Arrival - Present on Arrival Any Indicators Present on Arrival: No History of DVT/PE: No History of Uncontrolled Diabetes: No Urinary Catheter: No History of Decub. Ulcer: No History Surgical Site Infection Following: None - Disposition Have Diagnosis and Disposition been Completed?: Yes Diagnosis: Dehydration Disposition: HOSPITALIZED Disposition Time: 14:04 Patient Plan: Observation Condition: STABLE Referrals: Darinel Wallace MD [Primary Care Provider] - Follow up with primary Forms: [email or web address] ([place])
[2017-06-04 12:38] LABS: BASO # 0.03 K/mm3 (0.0-2.0); BASO % 0.4 % (0.0-3.0); EOS # 0.1 (0.0-0.7); EOS % 0.9 % (1.5-5.0); GRAN # 5.93 (1.4-6.5); GRAN % 73.1 % (50.0-68.0); HEMATOCRIT 41.5 % (36.0-48.0); LYMPH # 1.6 (1.2-3.4); LYMPH % 19.1 % (22.0-35.0); MEAN CELL VOLUME 91.8 fl (80.0-105.0); MEAN CORPUSCULAR HEMOGLOBIN 30.8 pg (25.0-35.0); MEAN CORPUSCULAR HGB CONC 33.5 g/dl (31.0-37.0); MEAN PLATELET VOLUME 9.2 fl (7.0-11.0); MONO # 0.5 (0.1-0.6); MONO % 6.5 % (1.0-6.0); RED CELL DISTRIBUTION WIDTH 14.8 % (11.5-14.5); WHITE BLOOD COUNT 8.1 10^3/ul (4.5-11.0)
[2017-06-04 12:41] LABS: ALB/GLOB RATIO 1.3 (1.1-1.8); ALKALINE PHOSPHATASE 70 U/L (38-133); ALT/SGPT 26 U/L (7-56); AST/SGOT 27 U/L (15-39); BILIRUBIN,TOTAL 0.8 mg/dL (0.2-1.3); BLOOD UREA NITROGEN 19 mg/dL (7-21); CARBON DIOXIDE 26 mmol/L (21-33); CHLORIDE 102 mmol/L (98-107); GFR AFRICAN-AMERICAN > 60; GLUCOSE,RANDOM 124 mg/dL (70-110); POTASSIUM 4.2 mmol/L (3.6-5.0); SODIUM 138 mmol/L (132-148); TOTAL PROTEIN 7.7 g/dL (5.8-8.3)
[2017-06-04 12:50] LABS: INR 1.08 (0.93-1.08); PARTIAL THROMBOPLASTIN TIME 26.7 Seconds (23.7-30.8)
[2017-06-04] MEDS ORDERED: Sodium Chloride 0.9% 1,000 ML IV SCH (14:45)
--- NOTE | 2017-06-04 15:09 | RAD ---
HISTORY: cough COMPARISON: 04/24/2017 FINDINGS: LUNGS: No active pulmonary disease. Borderline shallow lung volumes. PLEURA: No significant pleural effusion identified, no pneumothorax apparent. CARDIOVASCULAR: Normal heart size. . Interval right central line Port-A-Cath insertion tip superior vena cava OSSEOUS STRUCTURES: No significant abnormalities. VISUALIZED UPPER ABDOMEN: Normal. OTHER FINDINGS: None. IMPRESSION: No interval infiltrate. Interval right central line catheter insertion tip superior vena cava no pneumothorax.
--- NOTE | 2017-06-04 19:11 | CARD ---
APPROVED REPORT EKG Measurement Heart [id number] <Conclusion> Normal sinus rhythm Nonspecific T wave abnormality Abnormal ECG
[2017-06-04] MEDS ORDERED: Pneumococcal 23-Valent Vaccine IM ONE (21:49)
[2017-06-05 01:39] LABS: URINE BILIRUBIN NEGATIVE (NEGATIVE); URINE BLOOD SMALL (NEGATIVE); URINE GLUCOSE (UA) NEGATIVE (NEGATIVE); URINE KETONE NEGATIVE (NEGATIVE); URINE LEUKOCYTE ESTERASE NEGATIVE Leu/uL (NEGATIVE); URINE PROTEIN NEGATIVE mg/dL (<30 mg/dL)
[2017-06-05 01:46] LABS: URINE APPEARANCE SL CLOUDY (CLEAR); URINE COLOR YELLOW (YELLOW)
[2017-06-05 02:36] LABS: URINE BACTERIA FEW (NEG); URINE WBC 0 - 2 /hpf (0-6)
[2017-06-05] MEDS ORDERED: Sodium Chloride 0.9% 1,000 ML IV SCH (09:15)
[2017-06-05] MEDS: Sodium Chloride 0.9% 1,000 ML IV SCH (09:22)
[2017-06-05] MEDS ORDERED: MEMANTINE HCL PO SCH (10:00)
[2017-06-05] MEDS ORDERED: DONEPEZIL HCL PO SCH (10:00)
--- NOTE | 2017-06-05 11:53 | CP.PCM.CON ---
<vIan Driscoll - Last Filed: 06/05/17 12:27> History of Present Illness - History of Present Illness History of Present Illness: Neurology Consult Note for Dr. Dunlap Reason for Consult: Confusion 77 y/o F with PMH of abdominal small cell cancer and mild dementia presents for generalized weakness for the past 4 days. Patient is accompanied by her at bedside. According to patient's , patient has not been eating much over the past several days due to decrease in appetite. Patient states she feels weak and has trouble walking unless she has the assistance of her . Patient spoke with Dr. Stevenson, her oncologist, who recommended she come to the hospital for further treatment. Patient denies any syncope or loss of consciousness. Pt states she feels much better today than when she originally came in. Denies CP, SOB, N/V/D, fever, chills, syncope, numbness, tingling, palpitations, changes in vision. PMH: Abdominal small cell carcinoma and mild dementia Surgical Hx: None FMH: Noncontributory Social Hx: Denies alcohol, tobacco, or illicit drug use Allergies: NKDA Medication: Reviewed, as per MAR Review of Systems - Review of Systems Review of Systems: 13 point review of systems as per HPI, otherwise negative Past Patient History - Infectious Disease Hx of Infectious Diseases: None - Past Social History Smoking Status: Never Smoked - CARDIAC Hx Cardiac Disorders: Yes - PULMONARY Hx Respiratory Disorders: No - NEUROLOGICAL Hx Dementia: Yes - HEENT Hx HEENT Problems: No - RENAL Hx Chronic Kidney Disease: No - ENDOCRINE/METABOLIC Hx Endocrine Disorders: No - HEMATOLOGICAL/ONCOLOGICAL Hx Blood Disorders: Yes Hx Cancer: Yes Hx Chemotherapy: Yes - INTEGUMENTARY Hx Dermatological Problems: No - MUSCULOSKELETAL/RHEUMATOLOGICAL Hx Falls: No - GASTROINTESTINAL Hx Gastrointestinal Disorders: No - GENITOURINARY/GYNECOLOGICAL Hx Genitourinary Disorders: No - PSYCHIATRIC Hx Substance Use: No - SURGICAL HISTORY Hx Surgeries: No - ANESTHESIA Hx Anesthesia: No Meds Allergies/Adverse Reactions: Allergies Allergy/AdvReac Type Severity Reaction Status Date / Time No Known Allergies Allergy Verified 06/04/17 11:32 - Medications Medications: Current Medications Sodium Chloride (Sodium Chloride 0.9%) 1,000 mls @ 75 mls/hr IV .[id number] [facility] Last Admin: 06/05/17 09:22 Dose: 75 mls/hr Mirtazapine (Remeron) 15 mg PO HS [facility] Memantine Hcl/Donepezil Hcl [ Namzaric Titration Pack] (Home) 1 tab PO DAILY [facility] Quetiapine Fumarate (Seroquel) 25 mg PO DAILY [facility] PRN Reason: Protocol Last Admin: 06/05/17 09:21 Dose: 25 mg Physical Exam - Constitutional Appears: Non-toxic, No Acute Distress - Head Exam Head Exam: ATRAUMATIC, NORMAL INSPECTION, NORMOCEPHALIC - Eye Exam Eye Exam: EOMI - ENT Exam ENT Exam: Mucous Membranes Moist - Respiratory Exam Respiratory Exam: Clear to Auscultation Bilateral, NORMAL BREATHING PATTERN. absent: Rales, Rhonchi, Wheezes - Cardiovascular Exam Cardiovascular Exam: RRR, +S1, +S2 - GI/Abdominal Exam GI & Abdominal Exam: Normal Bowel Sounds, Soft. absent: Tenderness - Extremities Exam Extremities exam: Positive for: normal inspection. Negative for: calf tenderness, pedal edema - Neurological Exam Neurological exam: Alert, CN II-XII Intact, Oriented x3 Additional comments: No pronator drift No sensory or motor deficits Muscle strength 5/5 in all extremities - Psychiatric Exam Psychiatric exam: Normal Affect, Normal Mood - Skin Skin Exam: Intact, Normal Color, Warm Results - Vital Signs Recent Vital Signs: Last Vital Signs Temp 99 F 06/05/17 08:00 Pulse 103 H 06/05/17 08:00 Resp 20 06/05/17 08:00 BP 148/98 H 06/05/17 08:00 Pulse Ox 95 06/05/17 08:00 - Labs Result Diagrams: 06/04/17 12:28 06/04/17 12:28 Labs: Laboratory Results - last 24 hr 06/05/17 01:00 Urine Color Yellow Urine Appearance Sl cloudy Urine pH 6.0 Ur Specific [place] 1.020 Urine Protein Negative Urine Glucose (UA) Negative Urine Ketones Negative Urine Blood Small H Urine Nitrate Negative Urine Bilirubin Negative Urine Urobilinogen 1.0 H Ur Leukocyte Esterase Negative Urine RBC 1 - 3 Urine WBC 0 - 2 Ur Epithelial Cells 1 - 3 Urine Bacteria Few Assessment & Plan - Assessment and Plan (Free Text) Plan: 77 y/o F with PMH of abdominal small cell carcinoma and mild dementia presents with generalized weakness and dehydration secondary to decreased oral intake over the last several days. Patient is deconditioned Patient is oriented and has been improving since admission. Pt does have a component of dementia, but no acute delirium presently. Pt is neurologically stable. Will sign off at this time, please reconsult as needed. Plan: Adequate fluid hydration Physical/Occupational therapy Avoid sedative medication Avoid hypoglycemia Americo, PGY-2 <Christopher Dunlap - Last Filed: 06/05/17 13:19> Meds - Medications Medications: Current Medications Sodium Chloride (Sodium Chloride 0.9%) 1,000 mls @ 75 mls/hr IV .[id number] [facility] Last Admin: 06/05/17 09:22 Dose: 75 mls/hr Mirtazapine (Remeron) 15 mg PO HS [facility] Memantine Hcl/Donepezil Hcl [ Namzaric Titration Pack] (Home) 1 tab PO DAILY [facility] Quetiapine Fumarate (Seroquel) 25 mg PO DAILY [facility] PRN Reason: Protocol Last Admin: 06/05/17 09:21 Dose: 25 mg Results - Vital Signs Recent Vital Signs: Last Vital Signs Temp 99 F 06/05/17 08:00 Pulse 103 H 06/05/17 08:00 Resp 20 06/05/17 08:00 BP 148/98 H 06/05/17 08:00 Pulse Ox 95 06/05/17 08:00 - Labs Result Diagrams: 06/04/17 12:28 06/04/17 12:28 Labs: Laboratory Results - last 24 hr 06/05/17 01:00 Urine Color Yellow Urine Appearance Sl cloudy Urine pH 6.0 Ur Specific [place] 1.020 Urine Protein Negative Urine Glucose (UA) Negative Urine Ketones Negative Urine Blood Small H Urine Nitrate Negative Urine Bilirubin Negative Urine Urobilinogen 1.0 H Ur Leukocyte Esterase Negative Urine RBC 1 - 3 Urine WBC 0 - 2 Ur Epithelial Cells 1 - 3 Urine Bacteria Few Attending/Attestation - Attestation I have personally seen and examined this patient.: Yes I have fully participated in the care of the patient.: Yes I have reviewed all pertinent clinical information: Yes
--- NOTE | 2017-06-05 18:07 | HP ---
DATE: HISTORY OF PRESENT ILLNESS: The patient is a 77-year-old white female, admitted on 06/04/2017. She has a history of ovarian cancer, metastatic to the abdomen. The patient also has history of mild dementia, mild hypertension. The patient was being seen by Dr. Stevenson . She had one course of chemotherapy. She was scheduled for a second; however, the patient developed inability to eat and drink, loss of appetite, and generalized weakness. The patient came to the emergency room and was admitted, was started on IV fluids for rehydration, and had regained some of her appetite. PHYSICAL EXAMINATION: GENERAL: The patient is a well-developed and obese elderly female, in no apparent distress. HEENT: Essentially within normal limits. HEART: Regular sinus rhythm. No S3 or S4 murmurs. CHEST: Clear to auscultation and percussion. ABDOMEN: Benign. EXTREMITIES: Without cyanosis, clubbing, or edema. 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 She has an excoriated and burnt looking skin. IMPRESSION: Metastatic ovarian cancer, dehydration, failure to thrive, and change in mental status. Darinel Wallace MD
--- NOTE | 2017-06-06 01:09 | CON ---
DATE: 06/05/[address] Stevenson. CHIEF COMPLAINT: Failure to thrive, weakness, and dehydration. HISTORY OF PRESENT ILLNESS: The patient is a 77-year-old female seen sitting up in a chair with a at the bedside admitted for dehydration, mental status change, weakness, failure to thrive, unable to eat or drink for the past 2-3 days as per her with patient now improved with IV hydration. The patient was known to suffer from probable metastatic ovarian cancer with her tissue diagnosis and biopsy from 04/03/[address] Gregg Lockwood of a left periaortic lymph node showing metastatic small cell carcinoma with the patient having had one round of chemotherapy with the patient report. We evaluated by Dr. Gregg Lockwood with the chemotherapy on hold. With this, she is now seen more lucid with the patient notes suffered from dementia with the patient appearing in no acute distress at this visit. PAST MEDICAL HISTORY: Mild dementia recently diagnosed metastatic small cell carcinoma on PET/CT scan dated 04/19/2017 with intense FDG uptake in the uterus possible uterine or endometrial neoplasm to be considered, large FDG avid lymphadenopathy in the metaphysis. FDG avid lymph nodes in the left lower neck, thoracic inlet, T4 vertebral body suspicious for metastasis. The patient also reported to have a history of ovarian cancer, metastatic to the abdomen by Dr. Wallace, her primary doctor. However, this was not substantiated, but tissue diagnosis at this point with history of hypertension. One is referred to Dr. Wallace's history and physical. ALLERGIES: NO KNOWN ALLERGIES PER THE EMERGENCY ROOM DOCTORS INTERPRETATION AND EVALUATION. MEDICATIONS: Included Seroquel, ____, memantine, Remeron as per emergency room documentation. FAMILY HISTORY: Noncontributory. SOCIAL HISTORY: Noncontributory. is at the bedside. REVIEW OF SYSTEMS: Twelve-point review of systems was done, which was negative except for items mentioned in the history of present illness. The patient describes weakness for lower extremities that she cannot walk. PHYSICAL EXAMINATION: VITAL SIGNS: Temperature 97.8, pulse 116, respirations 12, blood pressure 98/66, pulse ox 95%. Weight 190 pounds. Height 5 feet 3 inches tall. HEENT: Unremarkable. NECK: Supple. HEART: Regular rate. LUNGS: Clear. ABDOMEN: Soft, obese, nontender. NEUROLOGIC: She is confused. SKIN: Warm, dry, and clear. EXTREMITIES: No edema with decrease strength appreciated to biomedical equipment technician. LABORATORY DATA: The patient's labs were done yesterday. There were not repeated today. There will be repeated tomorrow. White blood cell count of 8.5, hemoglobin of 13.9, hematocrit of 41.5, platelet count of 308,000 with a chem metabolic panel showing a [id number]; otherwise normal chem panel. Urine showing small amount of blood. Her blood cultures were negative at 24 hours. The patient had a chest x-ray done yesterday it was read as no acute infiltrate catheter. No pneumothorax. EKG was done yesterday, which read as normal sinus rhythm nonspecific T-wave abnormality. ASSESSMENT: For this patient is that of failure to thrive, dementia, metastatic small cell carcinoma with T4 vertebral body lymphadenopathy in the abdomen and pelvis and also left thoracic inlet and left lower neck with uterus showing increased FDG uptake suspicious for endometrial or uterine neoplasm, questionable dehiscence of port site, deconditioning weakness of the legs. PLAN: The plan for this patient is to continue present medical regimen. We will ask for consult doctor Gregg Lockwood for report evaluation, continue her psych medications. We will ask for a psychotherapy evaluation with consideration for placement as indicated. The prognosis for this patient guarded with consult with noted. Time spent with this patient approximately 50 minutes [id number] time. There was also conversation held with the patient's daughter by telephone with the patient's at the bedside, also helping with the patient's evaluation as the patient has dementia as previously noted. Jonatan Wiggins MD
[2017-06-06 07:04] LABS: BASO # 0.03 K/mm3 (0.0-2.0); BASO % 0.4 % (0.0-3.0); EOS # 0.3 (0.0-0.7); EOS % 3.2 % (1.5-5.0); GRAN # 4.44 (1.4-6.5); GRAN % 53.8 % (50.0-68.0); HEMATOCRIT 37.8 % (36.0-48.0); LYMPH # 2.8 (1.2-3.4); LYMPH % 34.1 % (22.0-35.0); MEAN CELL VOLUME 93.3 fl (80.0-105.0); MEAN CORPUSCULAR HEMOGLOBIN 30.1 pg (25.0-35.0); MEAN CORPUSCULAR HGB CONC 32.3 g/dl (31.0-37.0); MONO # 0.7 (0.1-0.6); MONO % 8.5 % (1.0-6.0); RED CELL DISTRIBUTION WIDTH 15.3 % (11.5-14.5); WHITE BLOOD COUNT 8.2 10^3/ul (4.5-11.0)
[2017-06-06 07:20] LABS: ALB/GLOB RATIO 1.2 (1.1-1.8); ALKALINE PHOSPHATASE 54 U/L (38-133); ALT/SGPT 19 U/L (7-56); AST/SGOT 22 U/L (15-39); BILIRUBIN,TOTAL 0.8 mg/dL (0.2-1.3); BLOOD UREA NITROGEN 14 mg/dL (7-21); CALCIUM 9.2 mg/dL (8.4-10.5); CARBON DIOXIDE 24 mmol/L (21-33); CHLORIDE 105 mmol/L (95-110); GFR AFRICAN-AMERICAN > 60; GLUCOSE,RANDOM 97 mg/dL (70-110); POTASSIUM 3.8 mmol/L (3.6-5.0); SODIUM 139 mmol/L (132-148); TOTAL PROTEIN 6.7 g/dL (5.8-8.3)
[2017-06-06] MEDS: MEMANTINE HCL PO SCH ×2 (10:00→22:43)
[2017-06-06] MEDS: DONEPEZIL HCL PO SCH ×2 (10:00→22:43)
[2017-06-06] MEDS: Sodium Chloride 0.9% 1,000 ML IV SCH (10:54)
--- NOTE | 2017-06-06 13:03 | CP.PCM.PN ---
<Hakan Foley - Last Filed: 06/06/17 13:18> Subjective - Date & Time of Evaluation Date of Evaluation: 06/06/17 Time of Evaluation: 09:00 - Subjective Subjective: Heme/onc progress note for Dr Stevenson: Pt seen and examined at bedside. No acute events overnight. Pt c/o generalized weakness and being more tired than usual. No other complaints. Denies any pain. Denies any f/c, sob, cp, abd pain, n/v/d. Objective - Vital Signs/Intake and Output Vital Signs (last 24 hours): Temp Pulse Resp BP Pulse Ox 98.3 F 102 H 20 149/81 95 06/06/17 07:00 06/06/17 09:58 06/06/17 07:00 06/06/17 09:58 06/06/17 07:00 Intake and Output: 06/06/17 06/06/17 06:59 18:59 Intake Total 660 Balance 660 - Medications Medications: Current Medications Amlodipine Besylate (Norvasc) 5 mg PO DAILY [facility] Last Admin: 06/06/17 09:58 Dose: 5 mg Sodium Chloride (Sodium Chloride 0.9%) 1,000 mls @ 75 mls/hr IV .[id number] [facility] Last Admin: 06/06/17 10:54 Dose: 75 mls/hr Lorazepam (Ativan) 1 mg IVP Q6H PRN; Protocol PRN Reason: Anxiety Last Admin: 06/06/17 09:22 Dose: 1 mg Mirtazapine (Remeron) 15 mg PO HS [facility] Last Admin: 06/05/17 21:30 Dose: 15 mg Memantine Hcl/Donepezil Hcl [ Namzaric Titration Pack] (Home) 1 tab PO HS [facility] Last Admin: 06/06/17 10:00 Dose: 1 tab Quetiapine Fumarate (Seroquel) 25 mg PO DAILY [facility] PRN Reason: Protocol Last Admin: 06/06/17 12:31 Dose: Not Given - Labs Labs: 06/06/17 06:30 06/06/17 06:30 PT 11.7 Seconds (9.9-11.8) 06/04/17 12:28 INR 1.08 (0.93-1.08) 06/04/17 12:28 APTT 26.7 Seconds (23.7-30.8) 06/04/17 12:28 - Constitutional Appears: No Acute Distress - Head Exam Head Exam: ATRAUMATIC, NORMOCEPHALIC - Eye Exam Eye Exam: EOMI, PERRL - ENT Exam ENT Exam: Mucous Membranes Moist - Respiratory Exam Respiratory Exam: Clear to Ausculation Bilateral. absent: Rales, Wheezes - Cardiovascular Exam Cardiovascular Exam: REGULAR RHYTHM, +S1, +S2 - GI/Abdominal Exam GI & Abdominal Exam: Soft. absent: Distended, Tenderness - Extremities Exam Extremities Exam: absent: Calf Tenderness, Pedal Edema - Neurological Exam Neurological Exam: Alert, Awake, Oriented x3 - Psychiatric Exam Psychiatric exam: Normal Affect, Normal Mood - Skin Skin Exam: Dry, Intact, Warm Assessment and Plan - Assessment and Plan (Free Text) Assessment: 77 F with pmh of metastatic small cell para aortic lymph node likely from the uterus with mets to the L thorax and inlet, abdomen & pelvis and T4 s/p chemotherapy, and dementia presents for generalized weakness and failure to thrive. - Cont current medical treatment - F/u with vascular lab regarding port evaluation - F/u neurology consult and recs - Fluid hydration - Physical therapy Case and plan was reviewed and discussed in detail with Dr Stevenson <Jaida Stevenson P - Last Filed: 06/07/17 23:14> Objective - Vital Signs/Intake and Output Vital Signs (last 24 hours): Temp Pulse Resp BP Pulse Ox 99.1 F 97 H 20 167/94 H 95 06/07/17 16:00 06/07/17 16:00 06/07/17 16:00 06/07/17 16:00 06/07/17 16:00 Intake and Output: 06/07/17 06/08/17 18:59 06:59 Intake Total 480 360 Balance 480 360 - Medications Medications: Current Medications Amlodipine Besylate (Norvasc) 5 mg PO DAILY [facility] Last Admin: 06/07/17 10:11 Dose: 5 mg Clonidine HCl (Catapres) 0.2 mg PO Q6 PRN PRN Reason: Systolic Blood Pressure Last Admin: 06/06/17 16:14 Dose: 0.2 mg Sodium Chloride (Sodium Chloride 0.9%) 1,000 mls @ 75 mls/hr IV .[id number] [facility] Last Admin: 06/07/17 12:25 Dose: 75 mls/hr Lorazepam (Ativan) 1 mg IVP Q6H PRN; Protocol PRN Reason: Anxiety Last Admin: 06/06/17 09:22 Dose: 1 mg Mirtazapine (Remeron) 15 mg PO HS [facility] Last Admin: 06/07/17 21:21 Dose: 15 mg Memantine Hcl/Donepezil Hcl [ Namzaric Titration Pack] (Home) 1 tab PO HS [facility] Last Admin: 06/07/17 21:21 Dose: 1 tab Quetiapine Fumarate (Seroquel) 25 mg PO DAILY [facility] PRN Reason: Protocol Last Admin: 06/07/17 10:00 Dose: Not Given - Labs Labs: 06/06/17 06:30 06/06/17 06:30 PT 11.7 Seconds (9.9-11.8) 06/04/17 12:28 INR 1.08 (0.93-1.08) 06/04/17 12:28 APTT 26.7 Seconds (23.7-30.8) 06/04/17 12:28
--- NOTE | 2017-06-07 02:23 | PN ---
DATE: SUBJECTIVE: The patient is a 77-year-old white female with uterine cancer metastatic to the abdomen, history of mild dementia, hypertension. The patient is seen this morning. She is anxious and nervous, was found with her at the bedside. She is tolerating her diet well, however, was having some difficulty in speaking, developed a persistent facial twitch and tremor of the mouth, developed in to episodes of choking. The patient had a tonic-clonic seizure with loss of consciousness at the bedside. The patient was given Ativan IV 1 mg to continue every 6 hours p.r.n. and to be re-consulted by neurology. The patient had been seen by neurology, but had signed off the previous day. Neurology was re-consulted. The patient will have MRI of the brain to rule out metastasis and an EEG has been ordered. LABORATORY DATA: Unremarkable with normal white count and H and H were within normal limits. Potassium was 3.8, BUN and creatinine were normal. Sugar was normal. PHYSICAL EXAMINATION: Shows a well developed slightly obese white female, confused, disoriented and course of the examination developed a persistent facial tremor, excessive chewing, unable to swallow and then developed into a tonic-clonic seizure with loss of consciousness. IMPRESSION: New onset of seizure in a patient with metastatic uterine cancer, history of mild dementia, history of hypertension and obsessive compulsive disorder. Darinel Wallace MD
[2017-06-07] MEDS: Sodium Chloride 0.9% 1,000 ML IV SCH (12:25)
--- NOTE | 2017-06-07 15:39 | CP.PCM.PN ---
<Hakan Foley - Last Filed: 06/07/17 15:36> Subjective - Date & Time of Evaluation Date of Evaluation: 06/07/17 Time of Evaluation: 10:00 - Subjective Subjective: Heme/onc progress note for Dr Stevenson: Pt seen and examined at bedside. No acute events overnight. Pt still c/o generalized weakness. Pt had episode of seizure at bedside. Denies any pain. Denies any f/c, sob, cp, abd pain, n/v/d. Objective - Vital Signs/Intake and Output Vital Signs (last 24 hours): Temp Pulse Resp BP Pulse Ox 98.4 F 93 H 22 144/89 94 L 06/07/17 08:17 06/07/17 08:17 06/07/17 08:17 06/07/17 10:11 06/07/17 08:17 Intake and Output: 06/07/17 06/07/17 06:59 18:59 Intake Total 240 480 Balance 240 480 - Medications Medications: Current Medications Amlodipine Besylate (Norvasc) 5 mg PO DAILY [facility] Last Admin: 06/07/17 10:11 Dose: 5 mg Clonidine HCl (Catapres) 0.2 mg PO Q6 PRN PRN Reason: Systolic Blood Pressure Last Admin: 06/06/17 16:14 Dose: 0.2 mg Sodium Chloride (Sodium Chloride 0.9%) 1,000 mls @ 75 mls/hr IV .[id number] [facility] Last Admin: 06/07/17 12:25 Dose: 75 mls/hr Lorazepam (Ativan) 1 mg IVP Q6H PRN; Protocol PRN Reason: Anxiety Last Admin: 06/06/17 09:22 Dose: 1 mg Mirtazapine (Remeron) 15 mg PO HS [facility] Last Admin: 06/06/17 22:44 Dose: 15 mg Memantine Hcl/Donepezil Hcl [ Namzaric Titration Pack] (Home) 1 tab PO HS [facility] Last Admin: 06/06/17 22:43 Dose: 1 tab Quetiapine Fumarate (Seroquel) 25 mg PO DAILY [facility] PRN Reason: Protocol Last Admin: 06/07/17 10:00 Dose: Not Given - Labs Labs: 06/06/17 06:30 06/06/17 06:30 PT 11.7 Seconds (9.9-11.8) 06/04/17 12:28 INR 1.08 (0.93-1.08) 06/04/17 12:28 APTT 26.7 Seconds (23.7-30.8) 06/04/17 12:28 - Constitutional Appears: No Acute Distress - Head Exam Head Exam: ATRAUMATIC, NORMOCEPHALIC - Eye Exam Eye Exam: EOMI - ENT Exam ENT Exam: Mucous Membranes Moist - Respiratory Exam Respiratory Exam: Clear to Ausculation Bilateral, Wheezes - Cardiovascular Exam Cardiovascular Exam: REGULAR RHYTHM, RRR, +S1, +S2 - GI/Abdominal Exam GI & Abdominal Exam: Soft. absent: Tenderness - Extremities Exam Extremities Exam: absent: Calf Tenderness, Pedal Edema - Neurological Exam Neurological Exam: Alert, Awake - Skin Skin Exam: Dry, Intact, Normal Color, Warm Assessment and Plan - Assessment and Plan (Free Text) Assessment: 77 F with pmh of metastatic small cell para aortic lymph node likely from the uterus with mets to the L thorax and inlet, abdomen & pelvis and T4 s/p chemotherapy, and dementia presents for generalized weakness and failure to thrive. Found to have a seizure at bedside. Neurology consulted. - Cont current medical treatment - Seizure yesterday was given Ativan 1mg - F/u MRI of the Brain - consider EEG - Vascular lab evaluated the port and was ok - F/u neurology re consult regarding seizures - Fluid hydration - Physical therapy Case and plan was reviewed and discussed in detail with Dr Stevenson <Jaida Stevenson P - Last Filed: 06/07/17 22:43> Objective - Vital Signs/Intake and Output Vital Signs (last 24 hours): Temp Pulse Resp BP Pulse Ox 99.1 F 97 H 20 167/94 H 95 06/07/17 16:00 06/07/17 16:00 06/07/17 16:00 06/07/17 16:00 06/07/17 16:00 Intake and Output: 06/07/17 06/08/17 18:59 06:59 Intake Total 480 Balance 480 - Medications Medications: Current Medications Amlodipine Besylate (Norvasc) 5 mg PO DAILY [facility] Last Admin: 06/07/17 10:11 Dose: 5 mg Clonidine HCl (Catapres) 0.2 mg PO Q6 PRN PRN Reason: Systolic Blood Pressure Last Admin: 06/06/17 16:14 Dose: 0.2 mg Sodium Chloride (Sodium Chloride 0.9%) 1,000 mls @ 75 mls/hr IV .[id number] [facility] Last Admin: 06/07/17 12:25 Dose: 75 mls/hr Lorazepam (Ativan) 1 mg IVP Q6H PRN; Protocol PRN Reason: Anxiety Last Admin: 06/06/17 09:22 Dose: 1 mg Mirtazapine (Remeron) 15 mg PO HS [facility] Last Admin: 06/07/17 21:21 Dose: 15 mg Memantine Hcl/Donepezil Hcl [ Namzaric Titration Pack] (Home) 1 tab PO HS [facility] Last Admin: 06/07/17 21:21 Dose: 1 tab Quetiapine Fumarate (Seroquel) 25 mg PO DAILY [facility] PRN Reason: Protocol Last Admin: 06/07/17 10:00 Dose: Not Given - Labs Labs: 06/06/17 06:30 06/06/17 06:30 PT 11.7 Seconds (9.9-11.8) 06/04/17 12:28 INR 1.08 (0.93-1.08) 06/04/17 12:28 APTT 26.7 Seconds (23.7-30.8) 06/04/17 12:28 Attending/Attestation - Attestation I have personally seen and examined this patient.: Yes I have fully participated in the care of the patient.: Yes I have reviewed all pertinent clinical information, including history, physical exam and plan: Yes
[2017-06-07] MEDS: DONEPEZIL HCL PO SCH (21:21)
[2017-06-07] MEDS: MEMANTINE HCL PO SCH (21:21)
--- NOTE | 2017-06-08 00:27 | CP.PCM.PN ---
Subjective - Date & Time of Evaluation Date of Evaluation: 06/08/17 Time of Evaluation: 00:26 - Subjective Subjective: Patient was seen at bedside because nurse calls and tells that she has temperature of 100.1*F ,her BP is 156/98 ,HR is 115/min. She is giving her clonidine 0.2 mg po now. Patient has no acute complaints now. Denies head ache, dizziness , heaviness in head, chest pain or sob. ROS:Negative except as mentioned above. Medical record was reviewed. This 77 year old white woman was admitted with anorexia, generalized weakness. Has PMH of HTN, osteoarthritis, dementia, metastatic small cell cancer, ovarian cancer. Objective - Vital Signs/Intake and Output Vital Signs (last 24 hours): Temp Pulse Resp BP Pulse Ox 99.1 F 97 H 20 167/94 H 95 06/07/17 16:00 06/07/17 16:00 06/07/17 16:00 06/07/17 16:00 06/07/17 16:00 Intake and Output: 06/07/17 06/08/17 18:59 06:59 Intake Total 480 360 Balance 480 360 - Medications Medications: Current Medications Acetaminophen (Tylenol 325mg Tab) 650 mg PO STAT [facility] Stop: 06/08/17 00:26 Amlodipine Besylate (Norvasc) 5 mg PO DAILY [facility] Last Admin: 06/07/17 10:11 Dose: 5 mg Clonidine HCl (Catapres) 0.2 mg PO Q6 PRN PRN Reason: Systolic Blood Pressure Last Admin: 06/06/17 16:14 Dose: 0.2 mg Sodium Chloride (Sodium Chloride 0.9%) 1,000 mls @ 75 mls/hr IV .[id number] [facility] Last Admin: 06/07/17 12:25 Dose: 75 mls/hr Lorazepam (Ativan) 1 mg IVP Q6H PRN; Protocol PRN Reason: Anxiety Last Admin: 06/06/17 09:22 Dose: 1 mg Mirtazapine (Remeron) 15 mg PO HS [facility] Last Admin: 06/07/17 21:21 Dose: 15 mg Memantine Hcl/Donepezil Hcl [ Namzaric Titration Pack] (Home) 1 tab PO HS [facility] Last Admin: 06/07/17 21:21 Dose: 1 tab Quetiapine Fumarate (Seroquel) 25 mg PO DAILY [facility] PRN Reason: Protocol Last Admin: 06/07/17 10:00 Dose: Not Given - Labs Labs: 06/06/17 06:30 06/06/17 06:30 PT 11.7 Seconds (9.9-11.8) 06/04/17 12:28 INR 1.08 (0.93-1.08) 06/04/17 12:28 APTT 26.7 Seconds (23.7-30.8) 06/04/17 12:28 - Constitutional Appears: Well, No Acute Distress - Head Exam Head Exam: ATRAUMATIC, NORMAL INSPECTION, NORMOCEPHALIC - Eye Exam Eye Exam: Normal appearance - ENT Exam ENT Exam: Normal External Ear Exam - Neck Exam Neck Exam: Normal Inspection - Respiratory Exam Respiratory Exam: NORMAL BREATHING PATTERN - Cardiovascular Exam Cardiovascular Exam: absent: JVD - GI/Abdominal Exam GI & Abdominal Exam: absent: Distended - Rectal Exam Rectal Exam: Deferred - Exam Additional comments: Deferred. - Back Exam Back Exam: NORMAL INSPECTION - Neurological Exam Neurological Exam: Alert, Awake - Psychiatric Exam Psychiatric exam: Normal Affect, Normal Mood - Skin Skin Exam: Normal Color Assessment and Plan - Assessment and Plan (Free Text) Assessment: Fever 2* to cancer. Elevated blood pressure reading. Metastatic small cell cancer. Ovarian cancer. HTN. Osteoarthritis. Plan: Clonidine 0.2 mg PO stat. Tylenol 650 mg PO stat. Continue present management.
--- NOTE | 2017-06-08 13:43 | MRI ---
PROCEDURE: MRI BRAIN WITHOUT CONTRAST HISTORY: seizures with ca hx- r/o brain mets- COMPARISON: Comparison made with MRI of the brain dated 04/03/2017 TECHNIQUE: Multiplanar, multisequence MR images of the brain were obtained without intravenous contrast enhancement. FINDINGS: HEMORRHAGE: No acute parenchymal, subarachnoid or extra-axial hemorrhage. No evidence of hemosiderin deposition identified on gradient echo weighted sequence. DWI: No evidence of an acute or early subacute infarction seen on diffusion imaging. . BRAIN PARENCHYMA: Moderate to fairly significant diffuse/ confluent chronic white matter ischemic changes seen extending peripherally into the deep and subcortical white matter both cerebral hemispheres. Additionally, numerous round and elliptical shaped varying sized focal areas of increased T2 signal scattered about the deep and subcortical white matter both cerebral hemispheres and to a lesser degree both basal nuclei consistent with chronic ischemia. Few chronic lacunar-type infarcts scattered about the brainstem and both cerebellar hemispheres suspected. Note that the possibility of chronic sequela of chemotherapy administered cannot be excluded given the patient's history of prior carcinoma. Apparent an incidental pineal gland cyst. No obvious parenchymal nor extra-axial mass or collection seen at this time to suggest brain metastasis however the possibility of small metastatic lesions cannot be completely excluded due to the lack of circulating intravenous contrast material. Follow-up post-contrast images could be performed for completeness and at 2 and exclude early small metastatic lesions. Moderate generalized volume loss VENTRICLES: No obstructive hydrocephalus CRANIUM: Mottled appearance of the inner table of the calvarium nonspecific. Rule out sequela of infiltrative marrow disease process. ORBITS: Grossly unremarkable. PARANASAL SINUSES/MASTOIDS: The paranasal sinuses appear well-developed and currently well-aerated. Mastoid air complexes are clear so far as can be seen. . VASCULAR SYSTEM: Visualized major vascular flow voids at skull base are patent. OTHER FINDINGS: None. IMPRESSION: Chronic on white matter basal nuclei as well as brainstem and cerebellar ischemic changes as described. Note that the possibility of concomitant sequela of chemotherapy if administered not excluded. . No obvious metastatic lesion however the possibility of a small metastatic lesion cannot be completely excluded due to the lack of circulating intravenous contrast material. If there is any concern, recommend followup post-contrast imaging for completeness. Moderate generalized volume loss. 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 Mottled appearance of the inner table of the calvarium nonspecific. Rule out sequela of infiltrative marrow disease process.
[2017-06-08] MEDS: Sodium Chloride 0.9% 1,000 ML IV SCH (15:55)
[2017-06-08] MEDS ORDERED: cefTRIAXone 1 gm 1 GM/100 ML BAG IVPB ONE (22:00)
[2017-06-08] MEDS: MEMANTINE HCL PO SCH (22:12)
[2017-06-08] MEDS: DONEPEZIL HCL PO SCH (22:12)
--- NOTE | 2017-06-08 22:39 | CON ---
HISTORY OF PRESENT ILLNESS: This is a 77-year-old female with dementia, small cell cancer, came with generalized weakness and and son bedside and Dr. Stevenson is taking care of the cancer. Denies any new complaints. PAST MEDICAL HISTORY: Abdominal small cell carcinoma and mild dementia. PHYSICAL EXAMINATION HEENT: Normocephalic and atraumatic. NECK: Supple. NEUROLOGIC EXAM: Awake and oriented to self and place, not the date. No facial asymmetry. Tongue midline. Spontaneous movement of all the extremities noted. Deep tendon reflexes were present. Both plantars are downgoing. Sensory appears intact. Cerebellar, gait deferred. IMPRESSION: A 77-year old white female with abdominal small cell carcinoma and mild dementia. MRI of the head was done which did not show any intracranial lesion. Spoke to the son and family. Continue present management. We will follow up. Dallin Dunlap MD
[2017-06-08] MEDS: Vancomycin 1gm in NS 250ml 1 GM/250 ML BAG IVPB SCH (23:03)
[2017-06-08 23:57] LABS: HEMATOCRIT 34.5 % (36.0-48.0); MEAN CELL VOLUME 92.2 fl (80.0-105.0); MEAN CORPUSCULAR HEMOGLOBIN 30.5 pg (25.0-35.0); MEAN PLATELET VOLUME 8.7 fl (7.0-11.0); RED CELL DISTRIBUTION WIDTH 15.2 % (11.5-14.5); WHITE BLOOD COUNT 9.8 10^3/ul (4.5-11.0)
[2017-06-09 00:08] LABS: ALB/GLOB RATIO 1.1 (1.1-1.8); ALKALINE PHOSPHATASE 57 U/L (38-133); ALT/SGPT 28 U/L (7-56); AST/SGOT 22 U/L (15-39); BILIRUBIN,TOTAL 0.5 mg/dL (0.2-1.3); BLOOD UREA NITROGEN 12 mg/dL (7-21); CALCIUM 8.7 mg/dL (8.4-10.5); CARBON DIOXIDE 25 mmol/L (21-33); CHLORIDE 103 mmol/L (98-107); GFR AFRICAN-AMERICAN > 60; GLUCOSE,RANDOM 102 mg/dL (70-110); POTASSIUM 3.8 mmol/L (3.6-5.0); SODIUM 135 mmol/L (132-148); TOTAL PROTEIN 6.1 g/dL (5.8-8.3)
[2017-06-09] MEDS: Cefepime 1gm in NS 100ml 1 GM/100 ML BAG IVPB SCH ×2 (05:53→19:40)
[2017-06-09] MEDS: Sodium Chloride 0.9% 1,000 ML IV SCH (05:53)
[2017-06-09] MEDS ORDERED: Oxycodone/Acetaminophen 5/325 mg Tab PO PRN (09:50)
[2017-06-09] MEDS: Vancomycin 1gm in NS 250ml 1 GM/250 ML BAG IVPB SCH ×2 (10:01→22:02)
--- NOTE | 2017-06-09 10:39 | RAD ---
PROCEDURE: CHEST RADIOGRAPH, 1 VIEW HISTORY: fever COMPARISON: Comparison chest 06/04/2017 FINDINGS: LUNGS: Poor inspiration with low lung volumes, crowded bronchovascular markings and mild bibasilar atelectasis. PLEURA: No pneumothorax or pleural fluid seen. CARDIOVASCULAR: Mild cardiomegaly. OSSEOUS STRUCTURES: No significant abnormalities. VISUALIZED UPPER ABDOMEN: Normal. OTHER FINDINGS: In situ right IJ [employer]iPort. . IMPRESSION: Poor inspiration with low lung volumes, crowded bronchovascular markings and mild bibasilar atelectasis.
--- NOTE | 2017-06-09 17:07 | CP.PCM.PN ---
Subjective - Date & Time of Evaluation Date of Evaluation: 06/08/17 Time of Evaluation: 17:00 - Subjective Subjective: No acute complaints. Denies pain ROS: unable to assess fully Objective - Vital Signs/Intake and Output Vital Signs (last 24 hours): Temp Pulse Resp BP Pulse Ox 99 F 100 H 20 142/84 93 L 06/09/17 17:00 06/09/17 17:00 06/09/17 17:00 06/09/17 17:00 06/09/17 17:00 Intake and Output: 06/09/17 06/09/17 06:59 18:59 Intake Total 2160 240 Output Total 3 Balance 2157 240 - Medications Medications: Current Medications Acetaminophen (Tylenol 325mg Tab) 650 mg PO Q6H PRN PRN Reason: Temperature Amlodipine Besylate (Norvasc) 5 mg PO DAILY [facility] Last Admin: 06/09/17 10:05 Dose: 5 mg Clonidine HCl (Catapres) 0.2 mg PO Q6 PRN PRN Reason: Systolic Blood Pressure Last Admin: 06/08/17 00:32 Dose: 0.2 mg Sodium Chloride (Sodium Chloride 0.9%) 1,000 mls @ 75 mls/hr IV .[id number] [facility] Last Admin: 06/09/17 05:53 Dose: 75 mls/hr Cefepime HCl (Maxipime 1gm) 1 gm in 100 mls @ 100 mls/hr IVPB Q12H [facility] PRN Reason: Protocol Stop: 06/18/17 06:01 Last Admin: 06/09/17 05:53 Dose: 100 mls/hr Vancomycin HCl (Vancomycin 1gm) 1 gm in 250 mls @ 167 mls/hr IVPB Q12H [facility] PRN Reason: Protocol Stop: 06/17/17 23:01 Last Admin: 06/09/17 10:01 Dose: 167 mls/hr Levetiracetam (Keppra) 500 mg PO BID [facility] Last Admin: 06/09/17 10:05 Dose: 500 mg Lorazepam (Ativan) 1 mg IVP Q6H PRN; Protocol PRN Reason: Anxiety Last Admin: 06/06/17 09:22 Dose: 1 mg Mirtazapine (Remeron) 15 mg PO HS [facility] Last Admin: 06/08/17 22:11 Dose: 15 mg Memantine Hcl/Donepezil Hcl [ Namzaric Titration Pack] (Home) 1 tab PO HS [facility] Last Admin: 06/08/17 22:12 Dose: 1 tab Oxycodone/Acetaminophen (Percocet 5/325 Mg Tab) 1 tab PO Q6H PRN PRN Reason: Pain, moderate (4-7) Stop: 06/12/17 09:51 Last Admin: 06/09/17 09:57 Dose: 1 tab Quetiapine Fumarate (Seroquel) 25 mg PO DAILY [facility] PRN Reason: Protocol Last Admin: 06/09/17 10:05 Dose: Not Given - Labs Labs: 06/08/17 23:45 06/08/17 23:45 PT 11.7 Seconds (9.9-11.8) 06/04/17 12:28 INR 1.08 (0.93-1.08) 06/04/17 12:28 APTT 26.7 Seconds (23.7-30.8) 06/04/17 12:28 - Constitutional Appears: Non-toxic - Respiratory Exam Respiratory Exam: Clear to Ausculation Bilateral, NORMAL BREATHING PATTERN - Cardiovascular Exam Cardiovascular Exam: REGULAR RHYTHM, +S1, +S2. absent: Murmur - GI/Abdominal Exam GI & Abdominal Exam: Soft, Normal Bowel Sounds. absent: Tenderness - Extremities Exam Extremities Exam: Calf Tenderness Assessment and Plan - Assessment and Plan (Free Text) Assessment: Ms. 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 hospital course has been complicated by a possible seizure with subsequent MRI wnl and EEG still pending -appreciate neurology recommendations -f/u with EEG -deferring on chemotherapy second cycle for now originally intended as an outpatient for this coming week -continue PT
--- NOTE | 2017-06-09 17:10 | CP.PCM.PN ---
Subjective - Date & Time of Evaluation Date of Evaluation: 06/09/17 Time of Evaluation: 19:00 - Subjective Subjective: At fever over night. CXR and blood cultures obtained per primary team. Started on broad spectrum abx. ROS: unable to assess fully Objective - Vital Signs/Intake and Output Vital Signs (last 24 hours): Temp Pulse Resp BP Pulse Ox 99 F 100 H 20 142/84 93 L 06/09/17 17:00 06/09/17 17:00 06/09/17 17:00 06/09/17 17:00 06/09/17 17:00 Intake and Output: 06/09/17 06/09/17 06:59 18:59 Intake Total 2160 240 Output Total 3 Balance 2157 240 - Medications Medications: Current Medications Acetaminophen (Tylenol 325mg Tab) 650 mg PO Q6H PRN PRN Reason: Temperature Amlodipine Besylate (Norvasc) 5 mg PO DAILY [facility] Last Admin: 06/09/17 10:05 Dose: 5 mg Clonidine HCl (Catapres) 0.2 mg PO Q6 PRN PRN Reason: Systolic Blood Pressure Last Admin: 06/08/17 00:32 Dose: 0.2 mg Sodium Chloride (Sodium Chloride 0.9%) 1,000 mls @ 75 mls/hr IV .[id number] [facility] Last Admin: 06/09/17 05:53 Dose: 75 mls/hr Cefepime HCl (Maxipime 1gm) 1 gm in 100 mls @ 100 mls/hr IVPB Q12H [facility] PRN Reason: Protocol Stop: 06/18/17 06:01 Last Admin: 06/09/17 05:53 Dose: 100 mls/hr Vancomycin HCl (Vancomycin 1gm) 1 gm in 250 mls @ 167 mls/hr IVPB Q12H [facility] PRN Reason: Protocol Stop: 06/17/17 23:01 Last Admin: 06/09/17 10:01 Dose: 167 mls/hr Levetiracetam (Keppra) 500 mg PO BID [facility] Last Admin: 06/09/17 10:05 Dose: 500 mg Lorazepam (Ativan) 1 mg IVP Q6H PRN; Protocol PRN Reason: Anxiety Last Admin: 06/06/17 09:22 Dose: 1 mg Mirtazapine (Remeron) 15 mg PO HS [facility] Last Admin: 06/08/17 22:11 Dose: 15 mg Memantine Hcl/Donepezil Hcl [ Namzaric Titration Pack] (Home) 1 tab PO HS [facility] Last Admin: 06/08/17 22:12 Dose: 1 tab Oxycodone/Acetaminophen (Percocet 5/325 Mg Tab) 1 tab PO Q6H PRN PRN Reason: Pain, moderate (4-7) Stop: 06/12/17 09:51 Last Admin: 06/09/17 09:57 Dose: 1 tab Quetiapine Fumarate (Seroquel) 25 mg PO DAILY [facility] PRN Reason: Protocol Last Admin: 06/09/17 10:05 Dose: Not Given - Labs Labs: 06/08/17 23:45 06/08/17 23:45 PT 11.7 Seconds (9.9-11.8) 06/04/17 12:28 INR 1.08 (0.93-1.08) 06/04/17 12:28 APTT 26.7 Seconds (23.7-30.8) 06/04/17 12:28 - Constitutional Appears: Non-toxic - Respiratory Exam Respiratory Exam: Clear to Ausculation Bilateral, NORMAL BREATHING PATTERN - Cardiovascular Exam Cardiovascular Exam: REGULAR RHYTHM, +S1, +S2. absent: Murmur - GI/Abdominal Exam GI & Abdominal Exam: Soft, Normal Bowel Sounds. absent: Tenderness - Extremities Exam Extremities Exam: Full ROM, Normal Capillary Refill, Normal Inspection. absent : Joint Swelling, Pedal Edema Assessment and Plan - Assessment and Plan (Free Text) Assessment: Ms. 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 If patient does underlying infection this could potential account for why she has not returned baseline neurologic status per family -appreciate ID recommendations and f/u outstanding cultures -appreciate neurology recommendation; and f/u with EEG -deferring on chemotherapy second cycle for now originally intended as an outpatient for this coming week -continue PT -if mentation continues to not improve; potentially consider LP to r/o paraneoplastic processes (Ex limbic encephalopathy) but given symptoms of infection would treat that first prior to pursuing additional invasive testing.
[2017-06-09] MEDS: MEMANTINE HCL PO SCH (21:26)
[2017-06-09] MEDS: DONEPEZIL HCL PO SCH (21:26)
--- NOTE | 2017-06-09 23:16 | CP.PCM.PN ---
Subjective - Date & Time of Evaluation Date of Evaluation: 06/09/17 Time of Evaluation: 10:00 - Subjective Subjective: She developed 101 F fever last night. Given one dose ceftrioxone last night. History of ovarian cancer s/p one cycle of chemo. MRI of the brain did not indicate brain mets. episode of new onset seizures. More alert today. Oral intake improved. Objective - Vital Signs/Intake and Output Vital Signs (last 24 hours): Temp Pulse Resp BP Pulse Ox 101.9 F H 100 H 20 142/84 93 L 06/09/17 21:35 06/09/17 17:00 06/09/17 17:00 06/09/17 17:00 06/09/17 17:00 Intake and Output: 06/09/17 06/10/17 18:59 06:59 Intake Total 240 Balance 240 - Medications Medications: Current Medications Acetaminophen (Tylenol 325mg Tab) 650 mg PO Q6H PRN PRN Reason: Temperature Last Admin: 06/09/17 21:35 Dose: 650 mg Amlodipine Besylate (Norvasc) 5 mg PO DAILY [facility] Last Admin: 06/09/17 10:05 Dose: 5 mg Clonidine HCl (Catapres) 0.2 mg PO Q6 PRN PRN Reason: Systolic Blood Pressure Last Admin: 06/08/17 00:32 Dose: 0.2 mg Sodium Chloride (Sodium Chloride 0.9%) 1,000 mls @ 75 mls/hr IV .[id number] [facility] Last Admin: 06/09/17 05:53 Dose: 75 mls/hr Cefepime HCl (Maxipime 1gm) 1 gm in 100 mls @ 100 mls/hr IVPB Q12H [facility] PRN Reason: Protocol Stop: 06/18/17 06:01 Last Admin: 06/09/17 19:40 Dose: 100 mls/hr Vancomycin HCl (Vancomycin 1gm) 1 gm in 250 mls @ 167 mls/hr IVPB Q12H [facility] PRN Reason: Protocol Stop: 06/17/17 23:01 Last Admin: 06/09/17 22:02 Dose: 167 mls/hr Levetiracetam (Keppra) 500 mg PO BID [facility] Last Admin: 06/09/17 17:48 Dose: 500 mg Lorazepam (Ativan) 1 mg IVP Q6H PRN; Protocol PRN Reason: Anxiety Last Admin: 06/06/17 09:22 Dose: 1 mg Mirtazapine (Remeron) 15 mg PO HS [facility] Last Admin: 06/09/17 21:26 Dose: 15 mg Memantine Hcl/Donepezil Hcl [ Namzaric Titration Pack] (Home) 1 tab PO HS [facility] Last Admin: 06/09/17 21:26 Dose: 1 tab Oxycodone/Acetaminophen (Percocet 5/325 Mg Tab) 1 tab PO Q6H PRN PRN Reason: Pain, moderate (4-7) Stop: 06/12/17 09:51 Last Admin: 06/09/17 09:57 Dose: 1 tab Quetiapine Fumarate (Seroquel) 25 mg PO DAILY [facility] PRN Reason: Protocol Last Admin: 06/09/17 10:05 Dose: Not Given - Labs Labs: 06/08/17 23:45 06/08/17 23:45 PT 11.7 Seconds (9.9-11.8) 06/04/17 12:28 INR 1.08 (0.93-1.08) 06/04/17 12:28 APTT 26.7 Seconds (23.7-30.8) 06/04/17 12:28 - Constitutional Appears: Well, Non-toxic - Head Exam Head Exam: ATRAUMATIC, NORMAL INSPECTION, NORMOCEPHALIC - Eye Exam Eye Exam: Normal appearance Pupil Exam: NORMAL ACCOMODATION - ENT Exam ENT Exam: Mucous Membranes Moist, Normal Exam - Neck Exam Neck Exam: Normal Inspection - Respiratory Exam Respiratory Exam: Clear to Ausculation Bilateral, NORMAL BREATHING PATTERN - Cardiovascular Exam Cardiovascular Exam: REGULAR RHYTHM, +S1, +S2 - GI/Abdominal Exam GI & Abdominal Exam: Soft, Normal Bowel Sounds - Extremities Exam Extremities Exam: Full ROM, Normal Inspection - Back Exam Back Exam: NORMAL INSPECTION - Psychiatric Exam Psychiatric exam: Normal Affect, Normal Mood - Skin Skin Exam: Normal Color, Warm Assessment and Plan - Assessment and Plan (Free Text) Assessment: 1. Stage IV ovarian cancer 2. new onset seizures 3. Fever Plan : blood cultures, urine cultures negative. alanis Hu. ID consult Dr. Jolly requested. MRI of brain no evidence of mets. No new episodes of seizure. Continue keppra. Neuro following. Blood counts stable.
--- NOTE | 2017-06-09 23:23 | CP.PCM.PN ---
Subjective - Date & Time of Evaluation Date of Evaluation: 06/08/17 Time of Evaluation: 10:00 - Subjective Subjective: Not very responsive. oral intake poor. New onset seizure. Ovarian cancer stage IV. no fever, cough. MRI done yesterday. Objective - Vital Signs/Intake and Output Vital Signs (last 24 hours): Temp Pulse Resp BP Pulse Ox 101.9 F H 100 H 20 142/84 93 L 06/09/17 21:35 06/09/17 17:00 06/09/17 17:00 06/09/17 17:00 06/09/17 17:00 Intake and Output: 06/09/17 06/10/17 18:59 06:59 Intake Total 240 Balance 240 - Medications Medications: Current Medications Acetaminophen (Tylenol 325mg Tab) 650 mg PO Q6H PRN PRN Reason: Temperature Last Admin: 06/09/17 21:35 Dose: 650 mg Amlodipine Besylate (Norvasc) 5 mg PO DAILY [facility] Last Admin: 06/09/17 10:05 Dose: 5 mg Clonidine HCl (Catapres) 0.2 mg PO Q6 PRN PRN Reason: Systolic Blood Pressure Last Admin: 06/08/17 00:32 Dose: 0.2 mg Sodium Chloride (Sodium Chloride 0.9%) 1,000 mls @ 75 mls/hr IV .[id number] [facility] Last Admin: 06/09/17 05:53 Dose: 75 mls/hr Cefepime HCl (Maxipime 1gm) 1 gm in 100 mls @ 100 mls/hr IVPB Q12H [facility] PRN Reason: Protocol Stop: 06/18/17 06:01 Last Admin: 06/09/17 19:40 Dose: 100 mls/hr Vancomycin HCl (Vancomycin 1gm) 1 gm in 250 mls @ 167 mls/hr IVPB Q12H [facility] PRN Reason: Protocol Stop: 06/17/17 23:01 Last Admin: 06/09/17 22:02 Dose: 167 mls/hr Levetiracetam (Keppra) 500 mg PO BID [facility] Last Admin: 06/09/17 17:48 Dose: 500 mg Lorazepam (Ativan) 1 mg IVP Q6H PRN; Protocol PRN Reason: Anxiety Last Admin: 06/06/17 09:22 Dose: 1 mg Mirtazapine (Remeron) 15 mg PO HS [facility] Last Admin: 06/09/17 21:26 Dose: 15 mg Memantine Hcl/Donepezil Hcl [ Namzaric Titration Pack] (Home) 1 tab PO HS [facility] Last Admin: 06/09/17 21:26 Dose: 1 tab Oxycodone/Acetaminophen (Percocet 5/325 Mg Tab) 1 tab PO Q6H PRN PRN Reason: Pain, moderate (4-7) Stop: 06/12/17 09:51 Last Admin: 06/09/17 09:57 Dose: 1 tab Quetiapine Fumarate (Seroquel) 25 mg PO DAILY [facility] PRN Reason: Protocol Last Admin: 06/09/17 10:05 Dose: Not Given - Labs Labs: 06/08/17 23:45 06/08/17 23:45 PT 11.7 Seconds (9.9-11.8) 06/04/17 12:28 INR 1.08 (0.93-1.08) 06/04/17 12:28 APTT 26.7 Seconds (23.7-30.8) 06/04/17 12:28 - Constitutional Appears: Chronically Ill - Head Exam Head Exam: ATRAUMATIC, NORMAL INSPECTION, NORMOCEPHALIC - Eye Exam Eye Exam: Normal appearance Pupil Exam: NORMAL ACCOMODATION - ENT Exam ENT Exam: Mucous Membranes Moist, Normal Exam - Neck Exam Neck Exam: Normal Inspection - Respiratory Exam Respiratory Exam: Clear to Ausculation Bilateral, NORMAL BREATHING PATTERN - Cardiovascular Exam Cardiovascular Exam: REGULAR RHYTHM, +S1, +S2 - GI/Abdominal Exam GI & Abdominal Exam: Soft, Normal Bowel Sounds - Extremities Exam Extremities Exam: Full ROM, Normal Inspection - Back Exam Back Exam: NORMAL INSPECTION - Neurological Exam Neurological Exam: Awake - Skin Skin Exam: Normal Color, Warm Assessment and Plan - Assessment and Plan (Free Text) Assessment: 1. Stage IV ovarian cancer 2. new onset seizures. 3. failure to thrive 4. Hypertension. Plan : MRI of brain , EEG done yesterday. neuro following. No evidence of brain mets. discussed with the , son. on keppra- continue same. Blood counts stable. renal : stable. CV : stable. bed side PT .
--- NOTE | 2017-06-10 04:24 | CON ---
LOCATION: The patient seen earlier this morning in room 561, bed 1. CHIEF COMPLAINT: Fever. The patient initially was admitted with weakness. HISTORY OF PRESENT ILLNESS: This is a 77-year-old female with hypertension, dementia, osteoarthritis with uterine cancer metastasis to the left thorax and inlet and abdominal and pelvis metastases, status post chemotherapy. History of osteoarthritis, dementia, small cell cancer of the uterus, history of obsessive compulsive disorder who has a right chest port that was placed in 04/24/2017, was admitted initially with weakness on 06/04/2017; however, 4 days into the hospitalization yesterday, the patient had a high temperature of 101. Infectious Disease consultation requested. REVIEW OF SYSTEMS: Reveals the patient with mild shortness of breath, no cough, no chest pain. There is no abdominal pain, diarrhea, or constipation now. She did have abdominal pain earlier. PAST MEDICAL HISTORY: Significant for hypertension, osteoarthritis, dementia, uterine cancer, small cell cancer with metastasis and chemotherapy, questionable ovarian cancer, mild dementia, and obsessive-compulsive disorder. PAST SURGICAL HISTORY: Significant for right-sided Port-A-Cath placement in 04/24/2017. MEDICATIONS: At home reveals the patient is on and Seroquel and was on Duricef. PHYSICAL EXAMINATION GENERAL: The patient with appearance much older than her stated age. She appears washed out and weak. VITAL SIGNS: Temperature of 99, T-max is 101, heart rate of 103, blood pressure is 130/90, respiratory rate of 22. HEENT: Unremarkable. NECK: Supple. LUNGS: Decreased breath sounds. HEART: Normal S1 and S2. ABDOMEN: Soft, mild tenderness. No rebound or guarding. LABORATORY EXAMINATION: There is a white count of 9, hemoglobin of 11, platelets of 209. BUN of 12, creatinine of 0.6. Urinalysis is noted. The patient had a chest x-ray, had poor inspiration, crowded bronchovascular markings as read by Dr. Josue Abdul. Chemistries are noted. Review of the x-ray reveals right base markings are noted. ASSESSMENT AND PLAN: A 77-year-old female with hypertension, osteoarthritis, dementia, uterine cancer metastasis, obsessive-compulsive disorder, right chest Port-A-Cath with blood cultures and urine culture initially was negative and 4-day of hospitalization as a fever of 101, tachycardia and dyspnea with systemic inflammatory response syndrome, must rule out right lower lobe healthcare-associated pneumonia versus bacteremia must be ruled out from a Port-A-Cath, and we will start the patient on vancomycin and Maxipime, pending blood cultures, urine cultures and concerned about a deep venous thrombosis, we will order Dopplers of the lower extremities and D-dimer, and I will make further recommendations upon availability of blood, urine, sputum culture, D-dimer, Dopplers of lower extremities, and procalcitonin and treat the patient with vancomycin, Maxipime, and we will check on the urinalysis and urine cultures also. Thony Neville MD
[2017-06-10] MEDS: Cefepime 1gm in NS 100ml 1 GM/100 ML BAG IVPB SCH ×2 (06:40→17:14)
--- NOTE | 2017-06-10 10:54 | PN ---
DATE: SUBJECTIVE: The patient had spiked the temperatures over the weekend up to 100.2. She is on IV antibiotics. She was seen in consultation by Dr. Neville. She is on cefepime and vancomycin. At this point, her cultures has had no growth as her urine, but no growth. She does have a Port-A-Cath in place. Chest x-ray showed some atelectasis, but otherwise unremarkable. Her laboratory data unremarkable. Her white count is 9.8. There was an elevated d-dimer at 14. She is having AE hose applied and is having a venous Doppler today. Her MRI/CT did not show any acute evidence of tumor or bleed, etc. PHYSICAL EXAMINATION: GENERAL: The patient is awake; however, she is not verbally responsive at this point. She does track with her eyes. She does move her extremities, but she is reticent of speech at this point. VITAL SIGNS: Stable. Today, she has a temperature of 99.3, blood pressure is 165/99, and O2 sat is 94. CHEST: Clear to auscultation. HEART: Regular sinus rhythm. ASSESSMENT AND PLAN: The patient was put on Keppra because of the seizure witnessed on . She will continue IV antibiotics. Blood cultures, AE hose, out of bed to chair, and workup as far as chemotherapy is on hold at this point because of her infection. Darinel Wallace MD
[2017-06-10] MEDS: Vancomycin 1gm in NS 250ml 1 GM/250 ML BAG IVPB SCH ×2 (11:30→23:21)
--- NOTE | 2017-06-10 15:41 | US ---
HISTORY: Leg pain and swelling. Evaluate for DVT PHYSICIAN(S): Gregg Lockwood MD. TECHNIQUE: Duplex sonography and color-flow Doppler with graded compression were used to evaluate the deep venous systems of both lower extremities. FINDINGS: The visualized deep venous systems of both lower extremities are sonographically normal and compressible. Normal wave forms and augmentation are seen. There is no sonographic evidence for deep venous thrombosis in the visualized segments of both lower extremities. IMPRESSION: No sonographic evidence for deep venous thrombosis in the visualized segments of both lower extremities.
[2017-06-10] MEDS: Sodium Chloride 0.9% 1,000 ML IV SCH (17:44)
[2017-06-10] MEDS: Meropenem 1g/NS 100mL IVPB 1 GM/100 ML PIGGYBACK IVPB SCH (21:49)
[2017-06-10] MEDS: MEMANTINE HCL PO SCH (21:51)
[2017-06-10] MEDS: DONEPEZIL HCL PO SCH (21:51)
--- NOTE | 2017-06-11 01:11 | PN ---
DATE: 06/10/2017 SUBJECTIVE: The patient is seen in bed in no acute distress, nontoxic. No fevers. PHYSICAL EXAMINATION: VITAL SIGNS: Temperature is 98, T-max is 101, blood pressure is 140/80, respiratory rate of 20 and heart rate of 108. HEENT: Unremarkable. NECK: Supple. LUNGS: Has decreased breath sounds. HEART: Normal S1 and S2. ABDOMEN: Soft and nontender. LABORATORY DATA: Reveals the patient has a white count 9.8, hemoglobin 11 and platelets of 209. Chemistry reveals a BUN of 12, creatinine of 0.6 and procalcitonin is less than 0.05. Urinalysis is noted to 0-1 WBC's. The blood cultures are negative. Urine culture is negative. Repeat blood cultures are negative. Doppler of the lower extremity, no evidence of DVT. Dr. Wallace's progress note from today is reviewed. Dr. Stevenson's note is reviewed. ASSESSMENT AND PLAN: A 77-year-old female with hypertension, osteoarthritis, dementia, uterine cancer metastasis, obsessive-compulsive disorder, right-sided chest Port-A catheter placement. Blood and urine cultures initially are negative. Now with a new fever, tachycardia, dyspnea with systemic inflammatory response syndrome, must rule out right lower lobe healthcare-associated pneumonia versus bacteremia from a Port-A-Cath, thus far the blood cultures are negative, currently vanco, Maxipime and pending final culture results, on vancomycin and cefepime, we will upgrade the vancomycin to meropenem. We will follow closely with you. Thony Neville MD
[2017-06-11] MEDS: Meropenem 1g/NS 100mL IVPB 1 GM/100 ML PIGGYBACK IVPB SCH ×3 (05:37→22:46)
[2017-06-11] MEDS: Sodium Chloride 0.9% 1,000 ML IV SCH (05:53)
[2017-06-11 09:49] LABS: PH,URINE 6.5 (4.7-8.0); URINE BILIRUBIN NEGATIVE (NEGATIVE); URINE BLOOD MODERATE (NEGATIVE); URINE GLUCOSE (UA) NEGATIVE (NEGATIVE); URINE KETONE NEGATIVE (NEGATIVE); URINE LEUKOCYTE ESTERASE NEGATIVE Leu/uL (NEGATIVE); URINE PROTEIN NEGATIVE mg/dL (<30 mg/dL); URINE UROBILINOGEN 0.2 E.U./dL (<1 E.U./dL)
[2017-06-11 09:50] LABS: URINE APPEARANCE SL CLOUDY (CLEAR); URINE COLOR YELLOW (YELLOW)
[2017-06-11 10:04] LABS: URINE EPITHELIAL CELLS 0 - 2 /hpf (0-5); URINE RBC TNTC /hpf (0-2); URINE WBC 0 - 2 /hpf (0-6)
[2017-06-11] MEDS: levETIRAcetam 500mg IVPB 500 MG/100 ML BAG IVPB SCH ×2 (11:28→21:24)
[2017-06-11] MEDS: Vancomycin 1gm in NS 250ml 1 GM/250 ML BAG IVPB SCH ×2 (12:23→23:39)
--- NOTE | 2017-06-11 14:09 | PN ---
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 The patient is found awake in bed, but not responding, not eating, not following commands this morning, but she is awake, tracking with her eyes. She is nonverbal this morning. PHYSICAL EXAMINATION: VITAL SIGNS: Stable. She does have a low-grade temperature of 99. She has been on IV antibiotics with Bactrim, Zosyn, cefepime and vancomycin. Her heart rate is 100, blood pressure 144/90, she is on room air. CHEST: Clear to auscultation. HEART: Reveals sinus rhythm. No murmurs. ABDOMEN: Obese but benign. EXTREMITIES: No clubbing, cyanosis, or edema , recent ultrasound of the extremities shows no evidence of DVT. LABORATORY DATA: Her last laboratory data was basically unchanged. Her cultures have been negative so far. Her is at bedside. IMPRESSION: Woman with mild change in mental status. Possible early sepsis. On antiseizure medication for recent seizure. Negative MRI of the brain as far as new pathology. History of metastatic ovarian versus uterine small cell cancer. Prognosis is poor. DNR was discussed with the family of the patient's , no conclusion has been established at this point. PLAN: Continue hydration, IV antibiotics and close monitoring. Darinel Wallace MD
[2017-06-11] MEDS ORDERED: Barium Sulfate Susp 2.1% w/v, 2.0% w/w 450 mL Bottle PO ONE (14:31)
--- NOTE | 2017-06-11 16:59 | CT ---
PROCEDURE: CT Abdomen and Pelvis without intravenous contrast HISTORY: GI path COMPARISON: None. TECHNIQUE: Without contrast.. Contrast Dose: Radiation dose: Total exam DLP = 1251 mGy-cm. This CT exam was performed using one or more of the following dose reduction techniques: Automated exposure control, adjustment of the mA and/or kV according to patient size, and/or use of iterative reconstruction technique. FINDINGS: LOWER THORAX: There is a small right-sided pleural effusion and minimal consolidation at the right lung base. LIVER: Unremarkable. No gross lesion or ductal dilatation. GALLBLADDER AND BILE DUCTS: Unremarkable. PANCREAS: Unremarkable. No gross lesion or ductal dilatation. SPLEEN: Unremarkable. ADRENALS: Unremarkable. No mass. KIDNEYS AND URETERS: Unremarkable. No hydronephrosis. No solid mass. VASCULATURE: Unremarkable. No aortic aneurysm. BOWEL: Unremarkable. No obstruction. No gross mural thickening. APPENDIX: Unremarkable. Normal appendix. PERITONEUM: Unremarkable. No free fluid. No free air. LYMPH NODES: Unremarkable. No enlarged lymph nodes. BLADDER: Unremarkable. REPRODUCTIVE: There is a 2 x 2.5 cm calcified fibroid. BONES: No acute fracture. OTHER FINDINGS: None. IMPRESSION: Small right pleural effusion and small amount of consolidation at the right lung base. No acute intra-abdominal findings.
--- NOTE | 2017-06-11 19:53 | EEG ---
DATE: 06/11/2017 CONDITION OF THE RECORDING: Drowsy, EEG. DIAGNOSIS: Seizure. MEDICATIONS: Reviewed by nurse reconciliation sheet. INTERPRETATION: This is a 16-channel international recording. The background activity was composed of 4 to 5 cycles per second. There was a very limited amount of beta activity 16 to 20 cycles per second seen in this recording. There was increased amount of theta activity 5 to 7 cycles per second seen in this tracing. There was also evidence of polymorphic delta throughout the EEG. Drowsiness was characterized by mostly theta activities, very limited beta, sleep was characterized by vertex transient, sleep spindle, bilateral slowing. Photic stimulation showed no change in the tracing. There was evidence of polymorphic delta waves throughout the EEG. CONCLUSION: Abnormal EEG due to presence of diffuse polymorphic delta activity consistent with severe bilateral cerebral dysfunction. Please clinically correlate. Christopher Dunlap MD
--- NOTE | 2017-06-11 20:30 | PN ---
DATE OF SERVICE: 06/11/2017 SUBJECTIVE: The patient is in bed, in no acute distress, seen earlier this morning in #[id number], low-grade fever. PHYSICAL EXAMINATION: VITAL SIGNS: Temperature is 99. Yesterday, T-max was 101. Blood pressure is 140/90, respiratory rate of 16. HEENT: Unremarkable. NECK: Supple. LUNGS: Decreased breath sounds. HEART: Normal S1 and S2. ABDOMEN: Soft, nontender. LABORATORY DATA: Laboratory examination reveals white count of 9.8, hemoglobin of 11, platelets of 209, BUN of 12, creatinine of 0.6, procalcitonin 0.05. Urinalysis is noted. Microbiology reveals the blood cultures are negative. Dr. Wallace's note is reviewed. ASSESSMENT AND PLAN: A 77-year-old female with hypertension, osteoarthritis, dementia, uterine cancer metastasis, obsessive-compulsive disorder, right-sided chest Port-A-Cath, blood and urine cultures negative, fever, tachycardia, and systemic inflammatory response syndrome. Ultrasound of the lower extremities, no deep vein thrombosis, and the chest x-ray, bibasilar atelectasis with a procalcitonin that is negative, less than 0.05, and blood cultures, urine cultures negative, currently on meropenem, vancomycin. Etiology of fever is not entirely clear. We will order a CAT scan of the abdomen and pelvis, and an ultrasound of the upper extremity, the patient's right-sided Port-A-Cath. We will check on the final culture results and we will make further recommendations. The patient did have a CAT scan of the abdomen and pelvis in 03/2017 which revealed retroperitoneal adenopathy. We will follow with you. Thony Neville MD
--- NOTE | 2017-06-11 22:34 | CP.PCM.PN ---
<Ziyad Florez - Last Filed: 06/11/17 22:31> Subjective - Date & Time of Evaluation Date of Evaluation: 06/11/17 Time of Evaluation: 11:30 - Subjective Subjective: Neurology Progress Note for Dr. Dunlap Service Patient seen and examined at bedside. No acute events reported, no further witnessed seizures reported. Patient received 1mg IV ativan this AM as per Primary physician, so patient completely somnolent and non-verbal during exam. Not following commands, not responsive to verbal stimuli. Only opens eyes to noxious physical stimuli (i.e. Sternal rub), and closes immediately after noxious stimuli ceases. Family at bedside reports similar presentation when she received Ativan 2 days prior, but reports more awake and alert yesterday, but with tendency to try to pull lines. Objective - Vital Signs/Intake and Output Vital Signs (last 24 hours): Temp Pulse Resp BP Pulse Ox 99.9 F H 72 18 129/78 95 06/11/17 16:00 06/11/17 16:00 06/11/17 16:00 06/11/17 16:00 06/11/17 16:00 Intake and Output: 06/11/17 06/12/17 18:59 06:59 Intake Total 0 120 Output Total 2 Balance -2 120 - Medications Medications: Current Medications Acetaminophen (Tylenol 325mg Tab) 650 mg PO Q6H PRN PRN Reason: Temperature Last Admin: 06/10/17 15:20 Dose: 650 mg Amlodipine Besylate (Norvasc) 5 mg PO DAILY COUNT INCLUDES [facility] Last Admin: 06/11/17 12:41 Dose: 5 mg Clonidine HCl (Catapres) 0.2 mg PO Q6 PRN PRN Reason: Systolic Blood Pressure Last Admin: 06/08/17 00:32 Dose: 0.2 mg Sodium Chloride (Sodium Chloride 0.9%) 1,000 mls @ 75 mls/hr IV .[id number] COUNT INCLUDES THE [facility] Last Admin: 06/11/17 05:53 Dose: 75 mls/hr Vancomycin HCl (Vancomycin 1gm) 1 gm in 250 mls @ 167 mls/hr IVPB Q12H [facility] PRN Reason: Protocol Stop: 06/17/17 23:01 Last Admin: 06/11/17 12:23 Dose: 167 mls/hr Meropenem 1g/NS 100mL IVPB (Meropenem 1g/Ns 100ml Ivpb) 1 gm in 100 mls @ 100 mls/hr IVPB Q8 [facility] PRN Reason: Protocol Stop: 06/20/17 22:01 Last Admin: 06/11/17 15:13 Dose: 100 mls/hr Levetiracetam (Keppra 500mg Ivpb) 500 mg in 100 mls @ 400 mls/hr IVPB Q12 [facility] Last Admin: 06/11/17 21:24 Dose: 400 mls/hr Lorazepam (Ativan) 1 mg IVP Q6H PRN; Protocol PRN Reason: Anxiety Last Admin: 06/11/17 08:51 Dose: 1 mg Mirtazapine (Remeron) 15 mg PO HS P[facility]A Last Admin: 06/11/17 21:24 Dose: 15 mg Memantine Hcl/Donepezil Hcl [ Namzaric Titration Pack] (Home) 1 tab PO HS [facility]A Last Admin: 06/10/17 21:51 Dose: 1 tab Oxycodone/Acetaminophen (Percocet 5/325 Mg Tab) 1 tab PO Q6H PRN PRN Reason: Pain, moderate (4-7) Stop: 06/12/17 09:51 Last Admin: 06/09/17 09:57 Dose: 1 tab Quetiapine Fumarate (Seroquel) 25 mg PO DAILY [facility] PRN Reason: Protocol Last Admin: 06/11/17 12:42 Dose: 25 mg - Labs Labs: 06/08/17 23:45 06/08/17 23:45 PT 11.7 Seconds (9.9-11.8) 06/04/17 12:28 INR 1.08 (0.93-1.08) 06/04/17 12:28 APTT 26.7 Seconds (23.7-30.8) 06/04/17 12:28 - Additional Findings Additional findings: - Constitutional Appears: Non-toxic, Somnolent and minimally responsive - Head Exam Head Exam: ATRAUMATIC, NORMAL INSPECTION, NORMOCEPHALIC - Eye Exam Eye Exam: Normal appearance, No scleral icterus or conjunctival injection. Pinpoint pupils not responsive to direct light challenge, no movement of eyes away from direct light challenge, open eyes to noxious physical stimuli but doesn't track towards stimuli and immediately closes eyes at cessation of noxious stimuli - ENT Exam ENT Exam: Mucous Membranes Moist - Respiratory Exam Respiratory Exam: Clear to Auscultation Bilateral, NORMAL BREATHING PATTERN. absent: Rales, Rhonchi, Wheezes - Cardiovascular Exam Cardiovascular Exam: RRR, +S1, +S2 - GI/Abdominal Exam GI & Abdominal Exam: Normal Bowel Sounds, Soft. absent: Rigid, Firm - Extremities Exam Extremities exam: Positive for: normal inspection. Negative for: pedal edema - Neurological Exam Neurological exam: Somnolent, non-verbal, no spontaneous movements, minimal retraction from pain, will open eyes to noxious physical stimuli only and closes immediately at cessation of noxious stimuli - Psychiatric Exam Psychiatric exam: Unable to assess due to somnolent/non-verbal state - Skin Skin Exam: Intact, Normal Color, Warm Assessment and Plan - Assessment and Plan (Free Text) Assessment: This is a 77 yo F with PMH of abdominal small cell carcinoma, ovarian ca, and mild dementia presents with generalized weakness and dehydration secondary to decreased oral intake over the last several days. Reconsulted for witnessed seizures. AMS 2/2 underlying dehydration, superimposed dementia, and underlying ovarian Ca. MRI shows chronic ischemic changes, will repeat MRI with contrast. EEG shows polymorphic delta activity consistent with severe bilateral cerebral dysfunction. Plan: 1) Continue keppra, converted to IV forumulation given questionable ability to tolerate PO in somnolent state 2) concern for paraneoplastic syndrome, so NMDA receptor antibody ordered 3) Repeat MRI with and without Peter, f/u 4) Avoid overuse of opiates, as can lower seizure threshold. Patient seen, reviewed, and discussed with attending, Dr. Tatianna Dunlap. <Christopher Dunlap - Last Filed: 06/12/17 11:19> Objective - Vital Signs/Intake and Output Vital Signs (last 24 hours): Temp Pulse Resp BP Pulse Ox 98.7 F 103 H 18 131/90 97 06/12/17 07:19 06/12/17 09:32 06/12/17 07:00 06/12/17 09:32 06/12/17 07:00 Intake and Output: 06/12/17 06/12/17 06:59 18:59 Intake Total 120 Output Total 400 Balance -280 - Medications Medications: Current Medications Acetaminophen (Tylenol 325mg Tab) 650 mg PO Q6H PRN PRN Reason: Temperature Last Admin: 06/12/17 06:19 Dose: 650 mg Albuterol/Ipratropium (Duoneb 3 Mg/0.5 Mg (3 Ml) Ud) 3 ml IH [id number] [facility] Amlodipine Besylate (Norvasc) 5 mg PO DAILY COUNT INCLUDES THE [facility] Last Admin: 06/12/17 09:32 Dose: 5 mg Clonidine HCl (Catapres) 0.2 mg PO Q6 PRN PRN Reason: Systolic Blood Pressure Last Admin: 06/08/17 00:32 Dose: 0.2 mg Sodium Chloride (Sodium Chloride 0.9%) 1,000 mls @ 75 mls/hr IV .[id number] [facility] Last Admin: 06/12/17 09:35 Dose: 75 mls/hr Vancomycin HCl (Vancomycin 1gm) 1 gm in 250 mls @ 167 mls/hr IVPB Q12H [facility] PRN Reason: Protocol Stop: 06/17/17 23:01 Last Admin: 06/11/17 23:39 Dose: 167 mls/hr Meropenem 1g/NS 100mL IVPB (Meropenem 1g/Ns 100ml Ivpb) 1 gm in 100 mls @ 100 mls/hr IVPB Q8 [facility] PRN Reason: Protocol Stop: 06/20/17 22:01 Last Admin: 06/12/17 07:13 Dose: 100 mls/hr Levetiracetam (Keppra 500mg Ivpb) 500 mg in 100 mls @ 400 mls/hr IVPB Q12 [facility] Last Admin: 06/12/17 09:29 Dose: 400 mls/hr Lorazepam (Ativan) 1 mg IVP Q6H PRN; Protocol PRN Reason: Anxiety Last Admin: 06/11/17 08:51 Dose: 1 mg Mirtazapine (Remeron) 15 mg PO HS COUNT INCLUDES THE [facility] Last Admin: 06/11/17 21:24 Dose: 15 mg Memantine Hcl/Donepezil Hcl [ Namzaric Titration Pack] (Home) 1 tab PO HS COUNT INCLUDES THE [facility] Last Admin: 06/12/17 00:48 Dose: Not Given Quetiapine Fumarate (Seroquel) 25 mg PO DAILY [facility] PRN Reason: Protocol Last Admin: 06/12/17 09:33 Dose: 25 mg - Labs Labs: 06/08/17 23:45 06/08/17 23:45 PT 11.7 Seconds (9.9-11.8) 06/04/17 12:28 INR 1.08 (0.93-1.08) 06/04/17 12:28 APTT 26.7 Seconds (23.7-30.8) 06/04/17 12:28 Attending/Attestation - Attestation I have personally seen and examined this patient.: Yes I have fully participated in the care of the patient.: Yes I have reviewed all pertinent clinical information, including history, physical exam and plan: Yes
[2017-06-12] MEDS: DONEPEZIL HCL PO SCH ×2 (00:48→21:07)
[2017-06-12] MEDS: MEMANTINE HCL PO SCH ×2 (00:48→21:07)
[2017-06-12] MEDS: Meropenem 1g/NS 100mL IVPB 1 GM/100 ML PIGGYBACK IVPB SCH ×3 (07:13→22:27)
[2017-06-12] MEDS: Sodium Chloride 0.9% 1,000 ML IV SCH ×2 (07:14→09:35)
[2017-06-12] MEDS: levETIRAcetam 500mg IVPB 500 MG/100 ML BAG IVPB SCH ×2 (09:29→21:07)
[2017-06-12] MEDS ORDERED: Gadodiamide 287 MG/ML VIAL (15ML) IV ONE (11:41)
--- NOTE | 2017-06-12 12:29 | MRI ---
PROCEDURE: MRI BRAIN WITH AND WITHOUT CONTRAST HISTORY: AMS, ?SZ COMPARISON: None. TECHNIQUE: Multiplanar, multisequence MR images of the brain were obtained with and without intravenous contrast enhancement. 15 cc of Omniscan FINDINGS: HEMORRHAGE: None DWI: No evidence of an acute or early subacute infarction. BRAIN PARENCHYMA: No mass,mass effect or edema. Severe chronic microvascular changes are seen in the periventricular white matter ENHANCEMENT: No abnormal intracranial enhancement. VENTRICLES: Unremarkable. No hydrocephalus. CRANIUM: Unremarkable. ORBITS: Grossly unremarkable. PARANASAL SINUSES/MASTOIDS: Clear VASCULAR SYSTEM: Skull base flow voids intact. OTHER FINDINGS: None . IMPRESSION: Severe chronic microvascular changes in the periventricular white matter. No acute infarct or hemorrhage
[2017-06-12] MEDS: Vancomycin 1gm in NS 250ml 1 GM/250 ML BAG IVPB SCH ×2 (12:43→23:43)
[2017-06-12] MEDS: Albuterol-Ipratrop 3 mg / 0.5 (3 ml) UD IH SCH ×2 (13:20→20:44)
--- NOTE | 2017-06-12 14:09 | CP.PCM.PN ---
Subjective - Date & Time of Evaluation Date of Evaluation: 06/12/17 Time of Evaluation: 12:00 - Subjective Subjective: Patient is somewhat lethargic, had low grade fever this morning 100.6 F. Objective - Vital Signs/Intake and Output Vital Signs (last 24 hours): Temp Pulse Resp BP Pulse Ox 98.7 F 103 H 18 131/90 97 06/12/17 07:19 06/12/17 09:32 06/12/17 07:00 06/12/17 09:32 06/12/17 07:00 Intake and Output: 06/12/17 06/12/17 06:59 18:59 Intake Total 120 Output Total 400 Balance -280 - Medications Medications: Current Medications Acetaminophen (Tylenol 325mg Tab) 650 mg PO Q6H PRN PRN Reason: Temperature Last Admin: 06/12/17 06:19 Dose: 650 mg Albuterol/Ipratropium (Duoneb 3 Mg/0.5 Mg (3 Ml) Ud) 3 ml IH [id number] [facility] Last Admin: 06/12/17 13:20 Dose: 3 ml Amlodipine Besylate (Norvasc) 5 mg PO DAILY [facility] Last Admin: 06/12/17 09:32 Dose: 5 mg Clonidine HCl (Catapres) 0.2 mg PO Q6 PRN PRN Reason: Systolic Blood Pressure Last Admin: 06/08/17 00:32 Dose: 0.2 mg Sodium Chloride (Sodium Chloride 0.9%) 1,000 mls @ 75 mls/hr IV .[id number] [facility] Last Admin: 06/12/17 09:35 Dose: 75 mls/hr Vancomycin HCl (Vancomycin 1gm) 1 gm in 250 mls @ 167 mls/hr IVPB Q12H [facility] PRN Reason: Protocol Stop: 06/17/17 23:01 Last Admin: 06/11/17 23:39 Dose: 167 mls/hr Meropenem 1g/NS 100mL IVPB (Meropenem 1g/Ns 100ml Ivpb) 1 gm in 100 mls @ 100 mls/hr IVPB Q8 [facility]A PRN Reason: Protocol Stop: 06/20/17 22:01 Last Admin: 06/12/17 07:13 Dose: 100 mls/hr Levetiracetam (Keppra 500mg Ivpb) 500 mg in 100 mls @ 400 mls/hr IVPB Q12 [facility] Last Admin: 06/12/17 09:29 Dose: 400 mls/hr Lorazepam (Ativan) 1 mg IVP Q6H PRN; Protocol PRN Reason: Anxiety Last Admin: 06/11/17 08:51 Dose: 1 mg Mirtazapine (Remeron) 15 mg PO HS P[facility]ELA Last Admin: 06/11/17 21:24 Dose: 15 mg Memantine Hcl/Donepezil Hcl [ Namzaric Titration Pack] (Home) 1 tab PO HS [facility] Last Admin: 06/12/17 00:48 Dose: Not Given Quetiapine Fumarate (Seroquel) 25 mg PO DAILY [facility] PRN Reason: Protocol Last Admin: 06/12/17 09:33 Dose: 25 mg - Labs Labs: 06/08/17 23:45 06/08/17 23:45 PT 11.7 Seconds (9.9-11.8) 06/04/17 12:28 INR 1.08 (0.93-1.08) 06/04/17 12:28 APTT 26.7 Seconds (23.7-30.8) 06/04/17 12:28 - Constitutional Appears: Other (Somewhat lethargic) - Head Exam Head Exam: NORMAL INSPECTION - Neck Exam Neck Exam: absent: Meningismus - Respiratory Exam Respiratory Exam: Decreased Breath Sounds - Cardiovascular Exam Cardiovascular Exam: +S1, +S2 - GI/Abdominal Exam GI & Abdominal Exam: Soft. absent: Tenderness Assessment and Plan - Assessment and Plan (Free Text) Plan: Assessment Systemic Inflammatory Response Syndrome, with fever, etiology unclear, R/O sepsis but no specific source identified, R/O due to metastatic uterine cancer Acute encephalopathy, R/O anti-NMDA receptor encephalitis R/O toxic-metabolic encephalopathy HTN osteoarthritis dementia obsessive-compulsive disorder S/P right sided port-a-cath placement Plan continue Vancomycin and Merrem; will repeat blood cx today and follow up brain MRI results, right upper extremity ultrasound to rule out DVT associated with the port-a-cath Neuro evaluating for anti-NMDA receptor encephalitis will monitor clinically overall prognosis is poor
--- NOTE | 2017-06-12 14:19 | PN ---
SUBJECTIVE: A 77-year-old white female with metastatic intra-abdominal small cell carcinoma, dementia, change in mental status, confusion, recent onset of seizure disorder, abnormal EEG. CT of the chest yesterday showing a right lower lobe infiltrate and effusion, low-grade fever, on antibiotics, blood culture is negative, urine culture is negative, status post [id number], not felt to be infected at this point. Chest is clear to auscultation and percussion, decreased breath sounds both bases. The patient is more awake and alert today. She is tolerating her diet today. Plan is to get her out of bed, start some nebulizer therapy. Continue to treat the pneumonia. Possible LP, discussed with Dr. Stevenson, and we will discuss with Oncology. Continue anti-seizure medication and start physical therapy and occupational therapy. Darinel Wallace MD
--- NOTE | 2017-06-12 16:47 | CP.PCM.PN ---
<Ziyad Florez - Last Filed: 06/12/17 16:43> Subjective - Date & Time of Evaluation Date of Evaluation: 06/12/17 Time of Evaluation: 09:40 - Subjective Subjective: Neurology Progress Note for Dr. Dunlap Service Patient seen and examined at bedside. No acute events reported, no further witnessed seizures reported. Seen prior to administration of any sedating medications, more awake and eyes open, but still not following commands, not responsive to verbal stimuli. Eating soft food fed to her by family at bedside , but remains non-verbal. Initially tracks new staff in room or towards site of physical stimuli, but rapidly loses focus/interest. Objective - Vital Signs/Intake and Output Vital Signs (last 24 hours): Temp Pulse Resp BP Pulse Ox 98.7 F 103 H 18 131/90 97 06/12/17 07:19 06/12/17 09:32 06/12/17 07:00 06/12/17 09:32 06/12/17 07:00 Intake and Output: 06/12/17 06/12/17 06:59 18:59 Intake Total 120 200 Output Total 400 Balance -280 200 - Medications Medications: Current Medications Acetaminophen (Tylenol 325mg Tab) 650 mg PO Q6H PRN PRN Reason: Temperature Last Admin: 06/12/17 06:19 Dose: 650 mg Albuterol/Ipratropium (Duoneb 3 Mg/0.5 Mg (3 Ml) Ud) 3 ml IH [id number] [facility] Last Admin: 06/12/17 13:20 Dose: 3 ml Amlodipine Besylate (Norvasc) 5 mg PO DAILY [facility] Last Admin: 06/12/17 09:32 Dose: 5 mg Clonidine HCl (Catapres) 0.2 mg PO Q6 PRN PRN Reason: Systolic Blood Pressure Last Admin: 06/08/17 00:32 Dose: 0.2 mg Sodium Chloride (Sodium Chloride 0.9%) 1,000 mls @ 75 mls/hr IV .[id number] [facility] Last Admin: 06/12/17 09:35 Dose: 75 mls/hr Vancomycin HCl (Vancomycin 1gm) 1 gm in 250 mls @ 167 mls/hr IVPB Q12H [facility] PRN Reason: Protocol Stop: 06/17/17 23:01 Last Admin: 06/12/17 12:43 Dose: 167 mls/hr Meropenem 1g/NS 100mL IVPB (Meropenem 1g/Ns 100ml Ivpb) 1 gm in 100 mls @ 100 mls/hr IVPB Q8 [facility] PRN Reason: Protocol Stop: 06/20/17 22:01 Last Admin: 06/12/17 07:13 Dose: 100 mls/hr Levetiracetam (Keppra 500mg Ivpb) 500 mg in 100 mls @ 400 mls/hr IVPB Q12 [facility] Last Admin: 06/12/17 09:29 Dose: 400 mls/hr Lorazepam (Ativan) 1 mg IVP Q6H PRN; Protocol PRN Reason: Anxiety Last Admin: 06/11/17 08:51 Dose: 1 mg Mirtazapine (Remeron) 15 mg PO HS [facility] Last Admin: 06/11/17 21:24 Dose: 15 mg Memantine Hcl/Donepezil Hcl [ Namzaric Titration Pack] (Home) 1 tab PO HS [facility] Last Admin: 06/12/17 00:48 Dose: Not Given Quetiapine Fumarate (Seroquel) 25 mg PO DAILY [facility] PRN Reason: Protocol Last Admin: 06/12/17 09:33 Dose: 25 mg - Labs Labs: 06/08/17 23:45 06/08/17 23:45 PT 11.7 Seconds (9.9-11.8) 06/04/17 12:28 INR 1.08 (0.93-1.08) 06/04/17 12:28 APTT 26.7 Seconds (23.7-30.8) 06/04/17 12:28 - Additional Findings Additional findings: - Constitutional Appears: Non-toxic, Awake but Minimally responsive - Head Exam Head Exam: ATRAUMATIC, NORMAL INSPECTION, NORMOCEPHALIC - Eye Exam Eye Exam: Normal appearance, No scleral icterus or conjunctival injection. Not following commands for EOMI testing, but able to briefly track staff within room or towards site of physical stimuli - ENT Exam ENT Exam: Mucous Membranes Moist, Small rapid chewing of soft food fed to pt by family without overt distress/difficulty/choking - Respiratory Exam Respiratory Exam: Clear to Auscultation Bilateral, NORMAL BREATHING PATTERN. absent: Rales, Rhonchi, Wheezes - Cardiovascular Exam Cardiovascular Exam: RRR, +S1, +S2 - GI/Abdominal Exam GI & Abdominal Exam: Normal Bowel Sounds, Soft. absent: Rigid, Firm - Extremities Exam Extremities exam: Positive for: normal inspection. Negative for: pedal edema - Neurological Exam Neurological exam: Awake but remains non-verbal, minimal spontaneous movements, not following commands - Psychiatric Exam Psychiatric exam: Unable to assess due to non-verbal state - Skin Skin Exam: Intact, Normal Color, Warm Assessment and Plan - Assessment and Plan (Free Text) Assessment: This is a 77 yo F with PMH of abdominal small cell carcinoma, ovarian ca, and mild dementia presents with generalized weakness and dehydration secondary to decreased oral intake over the last several days. Reconsulted for witnessed seizures. AMS 2/2 underlying dehydration, superimposed dementia, and underlying ovarian Ca. MRI shows chronic ischemic changes, will repeat MRI with contrast. EEG shows polymorphic delta activity consistent with severe bilateral cerebral dysfunction. Plan: 1) Continue keppra, converted to IV forumulation given questionable ability to tolerate PO in somnolent state 2) concern for paraneoplastic syndrome, so NMDA receptor antibody ordered, sent out, pending results 3) Repeat MRI with and without Peter pending later today, f/u 4) Avoid overuse of opiates, as can lower seizure threshold. Patient seen, reviewed, and discussed with attending, Dr. Tatianna Dunlap. <Christopher Dunlap - Last Filed: 06/12/17 17:09> Objective - Vital Signs/Intake and Output Vital Signs (last 24 hours): Temp Pulse Resp BP Pulse Ox 98.7 F 103 H 18 131/90 97 06/12/17 07:19 06/12/17 09:32 06/12/17 07:00 06/12/17 09:32 06/12/17 07:00 Intake and Output: 06/12/17 06/12/17 06:59 18:59 Intake Total 120 200 Output Total 400 Balance -280 200 - Medications Medications: Current Medications Acetaminophen (Tylenol 325mg Tab) 650 mg PO Q6H PRN PRN Reason: Temperature Last Admin: 06/12/17 06:19 Dose: 650 mg Albuterol/Ipratropium (Duoneb 3 Mg/0.5 Mg (3 Ml) Ud) 3 ml IH [id number] [facility] Last Admin: 06/12/17 13:20 Dose: 3 ml Amlodipine Besylate (Norvasc) 5 mg PO DAILY [facility] Last Admin: 06/12/17 09:32 Dose: 5 mg Clonidine HCl (Catapres) 0.2 mg PO Q6 PRN PRN Reason: Systolic Blood Pressure Last Admin: 06/08/17 00:32 Dose: 0.2 mg Sodium Chloride (Sodium Chloride 0.9%) 1,000 mls @ 75 mls/hr IV .[id number] [facility] Last Admin: 06/12/17 09:35 Dose: 75 mls/hr Vancomycin HCl (Vancomycin 1gm) 1 gm in 250 mls @ 167 mls/hr IVPB Q12H [facility] PRN Reason: Protocol Stop: 06/17/17 23:01 Last Admin: 06/12/17 12:43 Dose: 167 mls/hr Meropenem 1g/NS 100mL IVPB (Meropenem 1g/Ns 100ml Ivpb) 1 gm in 100 mls @ 100 mls/hr IVPB Q8 [facility] PRN Reason: Protocol Stop: 06/20/17 22:01 Last Admin: 06/12/17 07:13 Dose: 100 mls/hr Levetiracetam (Keppra 500mg Ivpb) 500 mg in 100 mls @ 400 mls/hr IVPB Q12 [facility] Last Admin: 06/12/17 09:29 Dose: 400 mls/hr Lorazepam (Ativan) 1 mg IVP Q6H PRN; Protocol PRN Reason: Anxiety Last Admin: 06/11/17 08:51 Dose: 1 mg Mirtazapine (Remeron) 15 mg PO HS [facility] Last Admin: 06/11/17 21:24 Dose: 15 mg Memantine Hcl/Donepezil Hcl [ Namzaric Titration Pack] (Home) 1 tab PO HS [facility] Last Admin: 06/12/17 00:48 Dose: Not Given Quetiapine Fumarate (Seroquel) 25 mg PO DAILY [facility] PRN Reason: Protocol Last Admin: 06/12/17 09:33 Dose: 25 mg - Labs Labs: 06/08/17 23:45 06/08/17 23:45 PT 11.7 Seconds (9.9-11.8) 06/04/17 12:28 INR 1.08 (0.93-1.08) 06/04/17 12:28 APTT 26.7 Seconds (23.7-30.8) 06/04/17 12:28 Attending/Attestation - Attestation I have personally seen and examined this patient.: Yes I have fully participated in the care of the patient.: Yes I have reviewed all pertinent clinical information, including history, physical exam and plan: Yes
--- NOTE | 2017-06-12 19:59 | US ---
PROCEDURE: Left upper extremity venous ultrasound HISTORY: Arm pain and swelling. Evaluate for deep venous thrombosis. PHYSICIAN(S): Gregg Lockwood MD. FINDINGS: The visualized leftinternal jugular vein is atretic. No acute thrombus is appreciated. The visualized segments of the left subclavian vein are patent with normal waveforms. No sonographic evidence of obstruction or thrombosis is seen. The visualized deep venous system of the proximal leftupper extremity is sonographically normal and compressible. IMPRESSION: 1. No sonographic evidence for deep venous thrombosis in the visualized segments of the left upper extremity.
--- NOTE | 2017-06-13 00:18 | CP.PCM.PN ---
Subjective - Date & Time of Evaluation Date of Evaluation: 06/13/17 Time of Evaluation: 00:18 - Subjective Subjective: Nurse calls and tells that patient is lethargic, wakes up on calling, has shivering and tremors sometimes. BP-198/92 Temp:100.3*F, Pulse 100/min, RR-18/min, FSBS - 113 mg %, Pulse ox -94 % RA. She had temp yesterday & on also. 77 year old white woman was admitted with generalized weakness, anorexia. Has PMH of Ovarian cancer,Mets to abdomen,Dementia,HTN ,Failure to thrive, Dehydration,.S/P chemotherapy. Objective - Vital Signs/Intake and Output Vital Signs (last 24 hours): Temp Pulse Resp BP Pulse Ox 100.3 F H 109 H 20 198/92 H 96 06/12/17 23:50 06/12/17 17:45 06/12/17 17:45 06/12/17 23:49 06/12/17 17:45 Intake and Output: 06/12/17 06/13/17 18:59 06:59 Intake Total 200 240 Balance 200 240 - Medications Medications: Current Medications Acetaminophen (Tylenol 325mg Tab) 650 mg PO Q6H PRN PRN Reason: Temperature Last Admin: 06/12/17 23:50 Dose: 650 mg Albuterol/Ipratropium (Duoneb 3 Mg/0.5 Mg (3 Ml) Ud) 3 ml IH [id number] [facility] Last Admin: 06/12/17 20:44 Dose: 3 ml Amlodipine Besylate (Norvasc) 5 mg PO DAILY [facility] Last Admin: 06/12/17 09:32 Dose: 5 mg Clonidine HCl (Catapres) 0.2 mg PO Q6 PRN PRN Reason: Systolic Blood Pressure Last Admin: 06/12/17 23:49 Dose: 0.2 mg Sodium Chloride (Sodium Chloride 0.9%) 1,000 mls @ 75 mls/hr IV .[id number] [facility] Last Admin: 06/12/17 09:35 Dose: 75 mls/hr Vancomycin HCl (Vancomycin 1gm) 1 gm in 250 mls @ 167 mls/hr IVPB Q12H [facility] PRN Reason: Protocol Stop: 06/17/17 23:01 Last Admin: 06/12/17 23:43 Dose: 167 mls/hr Meropenem 1g/NS 100mL IVPB (Meropenem 1g/Ns 100ml Ivpb) 1 gm in 100 mls @ 100 mls/hr IVPB Q8 [facility] PRN Reason: Protocol Stop: 06/20/17 22:01 Last Admin: 06/12/17 22:27 Dose: 100 mls/hr Levetiracetam (Keppra 500mg Ivpb) 500 mg in 100 mls @ 400 mls/hr IVPB Q12 [facility] Last Admin: 06/12/17 21:07 Dose: 400 mls/hr Lorazepam (Ativan) 1 mg IVP Q6H PRN; Protocol PRN Reason: Anxiety Last Admin: 06/11/17 08:51 Dose: 1 mg Mirtazapine (Remeron) 15 mg PO HS [facility] Last Admin: 06/12/17 21:07 Dose: 15 mg Memantine Hcl/Donepezil Hcl [ Namzaric Titration Pack] (Home) 1 tab PO HS [facility] Last Admin: 06/12/17 21:07 Dose: Not Given Quetiapine Fumarate (Seroquel) 25 mg PO DAILY [facility] PRN Reason: Protocol Last Admin: 06/12/17 09:33 Dose: 25 mg - Labs Labs: 06/08/17 23:45 06/08/17 23:45 PT 11.7 Seconds (9.9-11.8) 06/04/17 12:28 INR 1.08 (0.93-1.08) 06/04/17 12:28 APTT 26.7 Seconds (23.7-30.8) 06/04/17 12:28 Micro Results 06/08/17 19:30 Blood-Venous Blood Culture - Preliminary NO GROWTH AFTER 4 DAYS 06/08/17 19:00 Blood-Venous Blood Culture - Preliminary NO GROWTH AFTER 4 DAYS 06/11/17 08:23 Urine,Clean Catch Urine Culture - Final No Growth (<1,000 CFU/ML) 06/04/17 12:28 Blood-Venous Blood Culture - Final NO GROWTH AFTER 5 DAYS 06/04/17 12:28 Blood-Venous Gram Stain - Final TEST NOT PERFORMED 06/04/17 12:28 Blood-Venous Blood Culture - Final NO GROWTH AFTER 5 DAYS 06/04/17 12:28 Blood-Venous Gram Stain - Final 06/05/17 01:00 Urine Urine Culture - Final No Growth (<1,000 CFU/ML) Most Recent Lab Values WBC 9.8 10^3/ul (4.5-11.0) 06/08/17 23:45 RBC 3.74 10^6/uL (3.5-6.1) 06/08/17 23:45 Hgb 11.4 g/dL (12.0-16.0) L 06/08/17 23:45 Hct 34.5 % (36.0-48.0) L 06/08/17 23:45 MCV 92.2 fl (80.0-105.0) 06/08/17 23:45 MCH 30.5 pg (25.0-35.0) 06/08/17 23:45 MCHC 33.0 g/dl (31.0-37.0) 06/08/17 23:45 RDW 15.2 % (11.5-14.5) H 06/08/17 23:45 Plt Count 209 10^3/uL (120.0-450.0) 06/08/17 23:45 MPV 8.7 fl (7.0-11.0) 06/08/17 23:45 Gran % 53.8 % (50.0-68.0) 06/06/17 06:30 Lymph % (Auto) 34.1 % (22.0-35.0) 06/06/17 06:30 [place] % (Auto) 8.5 % (1.0-6.0) H 06/06/17 06:30 Eos % (Auto) 3.2 % (1.5-5.0) 06/06/17 06:30 Baso % (Auto) 0.4 % (0.0-3.0) 06/06/17 06:30 Gran # 4.44 (1.4-6.5) 06/06/17 06:30 Lymph # 2.8 (1.2-3.4) 06/06/17 06:30 [place] # 0.7 (0.1-0.6) H 06/06/17 06:30 Eos # 0.3 (0.0-0.7) 06/06/17 06:30 Baso # 0.03 K/mm3 (0.0-2.0) 06/06/17 06:30 PT 11.7 Seconds (9.9-11.8) 06/04/17 12:28 INR 1.08 (0.93-1.08) 06/04/17 12:28 APTT 26.7 Seconds (23.7-30.8) 06/04/17 12:28 D-Dimer, Quantitative 14.08 mg/L FEU (0-0.50) H 06/09/17 11:40 Sodium 135 mmol/L (132-148) 06/08/17 23:45 Potassium 3.8 mmol/L (3.6-5.0) 06/08/17 23:45 Chloride 103 mmol/L (98-107) 06/08/17 23:45 Carbon Dioxide 25 mmol/L (21-33) 06/08/17 23:45 Anion Gap 11 (10-20) 06/08/17 23:45 BUN 12 mg/dL (7-21) 06/08/17 23:45 Creatinine 0.6 mg/dL (0.5-1.4) 06/08/17 23:45 Est GFR ( Amer) > 60 06/08/17 23:45 Est GFR (Non-Af Amer) > 60 06/08/17 23:45 POC Glucose (mg/dL) 113 mg/dL (65-110) H 06/13/17 00:26 Random Glucose 102 mg/dL (70-110) 06/08/17 23:45 Calcium 8.7 mg/dL (8.4-10.5) 06/08/17 23:45 Total Bilirubin 0.5 mg/dL (0.2-1.3) 06/08/17 23:45 AST 22 U/L (15-39) 06/08/17 23:45 ALT 28 U/L (7-56) 06/08/17 23:45 Alkaline Phosphatase 57 U/L (38-133) 06/08/17 23:45 Total Protein 6.1 g/dL (5.8-8.3) 06/08/17 23:45 Albumin 3.2 g/dL (3.0-4.8) 06/08/17 23:45 Globulin 2.8 gm/dL 06/08/17 23:45 Albumin/Globulin Ratio 1.1 (1.1-1.8) 06/08/17 23:45 Procalcitonin < 0.05 NG/ML (0.19-0.49) L 06/08/17 23:45 Urine Color Yellow (YELLOW) 06/11/17 08:20 Urine Appearance Sl cloudy (CLEAR) 06/11/17 08:20 Urine pH 6.5 (4.7-8.0) 06/11/17 08:20 Ur Specific [place] 1.020 (1.005-1.035) 06/11/17 08:20 Urine Protein Negative mg/dL (<30 mg/dL) 06/11/17 08:20 Urine Glucose (UA) Negative mg/dL (NEGATIVE) 06/11/17 08:20 Urine Ketones Negative mg/dL (NEGATIVE) 06/11/17 08:20 Urine Blood Moderate (NEGATIVE) H 06/11/17 08:20 Urine Nitrate Negative (NEGATIVE) 06/11/17 08:20 Urine Bilirubin Negative (NEGATIVE) 06/11/17 08:20 Urine Urobilinogen 0.2 E.U./dL (<1 E.U./dL) 06/11/17 08:20 Ur Leukocyte Esterase Negative [place]/uL (NEGATIVE) 06/11/17 08:20 Urine RBC Tntc /hpf (0-2) 06/11/17 08:20 Urine WBC 0 - 2 /hpf (0-6) 06/11/17 08:20 Ur Epithelial Cells 0 - 2 /hpf (0-5) 06/11/17 08:20 Urine Bacteria Few (NEG) 06/05/17 01:00 - Constitutional Appears: No Acute Distress - Head Exam Head Exam: ATRAUMATIC, NORMAL INSPECTION, NORMOCEPHALIC - Eye Exam Eye Exam: Normal appearance Additional comments: Pupils equal bilaterally. - ENT Exam ENT Exam: Normal External Ear Exam - Neck Exam Neck Exam: Normal Inspection - Respiratory Exam Respiratory Exam: NORMAL BREATHING PATTERN - Cardiovascular Exam Cardiovascular Exam: absent: JVD - GI/Abdominal Exam GI & Abdominal Exam: absent: Distended - Rectal Exam Rectal Exam: Deferred - Exam Additional comments: Deferred. - Extremities Exam Extremities Exam: Normal Inspection - Back Exam Back Exam: NORMAL INSPECTION - Neurological Exam Neurological Exam: Altered Neuro motor strength exam: Left Upper Extremity: 4, Right Upper Extremity: 4, Left Lower Extremity: 4, Right Lower Extremity: 4 Additional comments: Opes her eyes when I lift up her either upper extremity and ask her to hold them in the air. She drops extremity on bed right away. - Psychiatric Exam Psychiatric exam: Depressed - Skin Skin Exam: Normal Color Assessment and Plan - Assessment and Plan (Free Text) Assessment: Lethargy. Elevated blood pressure reading. Fever. HTN. Ovarian cancer. Mets to abdomen. Dementia. Failure to thrive. Dehydration. S/P chemotherapy. Has PMH of Ovarian cancer,Mets to abdomen,Dementia,HTN ,Failure to thrive, Dehydration,.S/P chemotherapy. Plan: Tylenol suppository NTP 1/2 " topically stat. cbc, cmp, mag , phos , venous blood gas stat.Cancel AM labs.\\ Continue present management.
[2017-06-13] MEDS ORDERED: Nitroglycerin 2% Ointment Foilpak UD TOP STA (00:19)
[2017-06-13] MEDS: Albuterol-Ipratrop 3 mg / 0.5 (3 ml) UD IH SCH ×4 (01:26→20:00)
[2017-06-13 01:47] LABS: BASO # 0.02 K/mm3 (0.0-2.0); BASO % 0.2 % (0.0-3.0); EOS # 0.1 (0.0-0.7); EOS % 0.7 % (1.5-5.0); GRAN # 11.22 (1.4-6.5); GRAN % 87.6 % (50.0-68.0); HEMATOCRIT 40.4 % (36.0-48.0); LYMPH # 0.9 (1.2-3.4); LYMPH % 6.8 % (22.0-35.0); MEAN CORPUSCULAR HEMOGLOBIN 31.7 pg (25.0-35.0); MEAN CORPUSCULAR HGB CONC 34.4 g/dl (31.0-37.0); MEAN PLATELET VOLUME 9.1 fl (7.0-11.0); MONO # 0.6 (0.1-0.6); MONO % 4.7 % (1.0-6.0); RED CELL DISTRIBUTION WIDTH 14.8 % (11.5-14.5); WHITE BLOOD COUNT 12.8 10^3/ul (4.5-11.0)
[2017-06-13 01:52] LABS: ALB/GLOB RATIO 1.1 (1.1-1.8); ALKALINE PHOSPHATASE 74 U/L (38-133); ALT/SGPT 27 U/L (7-56); AST/SGOT 36 U/L (15-39); BILIRUBIN,TOTAL 0.7 mg/dL (0.2-1.3); BLOOD UREA NITROGEN 11 mg/dL (7-21); CALCIUM 9.5 mg/dL (8.4-10.5); CARBON DIOXIDE 28 mmol/L (21-33); CHLORIDE 95 mmol/L (98-107); GFR AFRICAN-AMERICAN > 60; GLUCOSE,RANDOM 120 mg/dL (70-110); PHOSPHOROUS 3.1 mg/dL (2.5-4.5); POTASSIUM 3.9 mmol/L (3.6-5.0); SODIUM 134 mmol/L (132-148); TOTAL PROTEIN 7.6 g/dL (5.8-8.3)
[2017-06-13 01:57] LABS: VENOUS BLOOD GAS BASE EXCESS 2.7 mmol/L (0.0-2.0); VENOUS BLOOD PH 7.37 (7.32-7.43)
--- NOTE | 2017-06-13 02:58 | PN ---
DATE: 06/12/2017 Hospital visit on the medical floor. For Dr. Stevenson SUBJECTIVE: The patient is a 77-year-old female seen lying awake in bed with seizure activity described, being followed by Dr. Dunlap neurology with the patient nonverbal at this point. 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 She appears to be in no acute distress. PHYSICAL EXAMINATION: VITAL SIGNS: Temperature 98.1 after early temperature 100.6, pulse 109, respirations 20, blood pressure 168/102, being elevated after earlier values were within normal range, O2 sat 96%. HEENT: Unremarkable. NECK: Supple. HEART: Tachy rate, regular rhythm. LUNGS: Rare rhonchi. ABDOMEN: Soft, nontender. EXTREMITIES: No edema. SKIN: Warm and dry. NEUROLOGIC: Awake. She is, however, nonverbal and does not follow commands when requested. No tics appreciated nor any type of seizure activity. LABORATORY DATA: The patient labs were done 4 days prior were repeated in the morning. MEDICATIONS: The patient's present medical regimen includes Ativan, Catapres, DuoNeb, Keppra, memantine, donepezil, Mepron, Norvasc, Remeron, Seroquel, IV fluids, Tylenol, vancomycin. IMAGING: The patient had MRI of the brain done earlier today, it was read as severe chronic microvascular change in the periventricular white matter, no acute infarct or hemorrhage. A CT scan of the abdomen and pelvis was done yesterday, it was read as small right pleural effusion with small amount of consolidation at the right lung base, no acute intraabdominal findings. An ultrasound of her upper extremity was done, it was not read yet; however, 3 days prior on 06/09/2017, she had a Doppler of her lower extremities read as no evidence of DVT, bilateral. LABORATORY DATA: The patient's labs as noted were done earlier in the week, we will repeat them tomorrow. Her urine culture and blood cultures were negative after 3 days. 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 PLAN: The plan for this patient after conversation with Dr. Stevenson, want to check her labs in the morning, we will monitor clinically with continuation of present medical regimen as per her primary doctor and as per portrait consultant's recommendations. Prognosis for this patient is guarded. Jonatan Wiggins MD
[2017-06-13] MEDS: Meropenem 1g/NS 100mL IVPB 1 GM/100 ML PIGGYBACK IVPB SCH ×3 (05:32→21:57)
[2017-06-13 07:59] LABS: VENOUS BLOOD GAS BASE EXCESS 4.7 mmol/L (0.0-2.0); VENOUS BLOOD PH 7.49 (7.32-7.43)
--- NOTE | 2017-06-13 10:45 | RAD ---
HISTORY: leukocytosis, fever, lethargy. COMPARISON: 06/08/2017 TECHNIQUE: Chest PA and lateral FINDINGS: LUNGS: Infiltrate at the right lung base PLEURA: Small right effusion CARDIOVASCULAR: Normal. OSSEOUS STRUCTURES: No significant abnormalities. VISUALIZED UPPER ABDOMEN: Normal. OTHER FINDINGS: None. IMPRESSION: Infiltrate and small effusion at the right lung base
[2017-06-13] MEDS: levETIRAcetam 500mg IVPB 500 MG/100 ML BAG IVPB SCH ×2 (11:07→21:31)
[2017-06-13] MEDS: Vancomycin 1gm in NS 250ml 1 GM/250 ML BAG IVPB SCH ×2 (11:07→23:56)
--- NOTE | 2017-06-13 12:58 | PN ---
DATE: SUBJECTIVE: A 77-year-old white female with metastatic small cell intra-abdominal carcinoma, change in mental status, confusion, sepsis, and status post Port-A-Cath. White count elevated at 12.8. Temperature 99.6 and blood pressure 148/83. Recent MRI shows severe chronic microvascular disease, but no evidence of mass, bleed, or recurrent tumor. Case was discussed with Dr. Stevenson, possible LP for leptomeningeal spread of tumor causing change in mental status. Recent onset of seizure activity. No recent seizure activity on Keppra and p.r.n. Ativan as needed. Plan is to change to the patient has difficulty swallowing, but a swallowing evaluation is ordered. Change to full liquid diet. Continue Keppra and IV antibiotics for possible sepsis. Cultures so far are negative. PHYSICAL EXAMINATION: NEUROLOGIC: Shows a well-developed and well-nourished obese white female in no apparent distress, but nonconversation following with tracking with eyes. Cognizant of questions, but not answering. The patient has no focal lateralizing deficit, is just in a non-communicative state at this point. We will discuss further with Dr. Stevenson. Continue IV antibiotics and follow clinically. Darinel Wallace MD
--- NOTE | 2017-06-13 14:11 | CP.PCM.CON ---
History of Present Illness - History of Present Illness History of Present Illness: Palliative consult requested by Dr Wallace Reason: Goals of care advance care planning 77 year old female with metastatic small cell carcinoma who presented with weakness, and altered mental status, dehydration and failure to thrive.Patient is s/p one round of chemotherapy prior to this admission. She has since developed seizures. MRI of brain showed no acute findings, severe chronic microvascular changes in the periventricular white matter. PMHx: dementia, small cell carcinoma possible uterine/endometrial origin, OA both knees Family History: Non contributory. Social History: Non smoker, no alcohol or drug use. ,lives with spouse Advance Care Planning: The patient does not have an Advanced Directive Review of Systems: As per HPI, patient is lethargic/altered unable to answer questions Past Patient History - Infectious Disease Hx of Infectious Diseases: None - Past Social History Smoking Status: Never Smoked - CARDIAC Hx Cardiac Disorders: Yes - PULMONARY Hx Respiratory Disorders: No - NEUROLOGICAL Hx Dementia: Yes - HEENT Hx HEENT Problems: No - RENAL Hx Chronic Kidney Disease: No - ENDOCRINE/METABOLIC Hx Endocrine Disorders: No - HEMATOLOGICAL/ONCOLOGICAL Hx Cancer: Yes (ovarian with mets) - INTEGUMENTARY Hx Dermatological Problems: No - MUSCULOSKELETAL/RHEUMATOLOGICAL Hx Falls: No - GASTROINTESTINAL Hx Gastrointestinal Disorders: No - GENITOURINARY/GYNECOLOGICAL Hx Genitourinary Disorders: No - PSYCHIATRIC Hx Substance Use: No - SURGICAL HISTORY Hx Surgeries: No - ANESTHESIA Hx Anesthesia: No Meds Allergies/Adverse Reactions: Allergies Allergy/AdvReac Type Severity Reaction Status Date / Time No Known Allergies Allergy Verified 06/04/17 11:32 - Medications Medications: Current Medications Acetaminophen (Tylenol 325mg Tab) 650 mg PO Q6H PRN PRN Reason: Temperature Last Admin: 06/12/17 06:19 Dose: 650 mg Albuterol/Ipratropium (Duoneb 3 Mg/0.5 Mg (3 Ml) Ud) 3 ml IH [id number] [facility] Last Admin: 06/13/17 13:14 Dose: 3 ml Amlodipine Besylate (Norvasc) 5 mg PO DAILY [facility] Last Admin: 06/13/17 11:08 Dose: 5 mg Clonidine HCl (Catapres) 0.2 mg PO Q6 PRN PRN Reason: Systolic Blood Pressure Last Admin: 06/08/17 00:32 Dose: 0.2 mg Sodium Chloride (Sodium Chloride 0.9%) 1,000 mls @ 75 mls/hr IV .[id number] [facility] Last Admin: 06/12/17 09:35 Dose: 75 mls/hr Vancomycin HCl (Vancomycin 1gm) 1 gm in 250 mls @ 167 mls/hr IVPB Q12H [facility] PRN Reason: Protocol Stop: 06/17/17 23:01 Last Admin: 06/13/17 11:07 Dose: 167 mls/hr Meropenem 1g/NS 100mL IVPB (Meropenem 1g/Ns 100ml Ivpb) 1 gm in 100 mls @ 100 mls/hr IVPB Q8 [facility] PRN Reason: Protocol Stop: 06/20/17 22:01 Last Admin: 06/13/17 05:32 Dose: 100 mls/hr Levetiracetam (Keppra 500mg Ivpb) 500 mg in 100 mls @ 400 mls/hr IVPB Q12 [facility] Last Admin: 06/13/17 11:07 Dose: 400 mls/hr Lorazepam (Ativan) 1 mg IVP Q6H PRN; Protocol PRN Reason: Anxiety Last Admin: 06/11/17 08:51 Dose: 1 mg Mirtazapine (Remeron) 15 mg PO HS [facility] Last Admin: 06/12/17 21:07 Dose: 15 mg Memantine Hcl/Donepezil Hcl [ Namzaric Titration Pack] (Home) 1 tab PO HS [facility] Last Admin: 06/12/17 21:07 Dose: Not Given Quetiapine Fumarate (Seroquel) 25 mg PO DAILY [facility] PRN Reason: Protocol Last Admin: 06/13/17 11:09 Dose: Not Given Physical Exam - Constitutional Appears: Chronically Ill - Eye Exam Eye Exam: Normal appearance, PERRL - Respiratory Exam Respiratory Exam: Decreased Breath Sounds, NORMAL BREATHING PATTERN - Cardiovascular Exam Cardiovascular Exam: REGULAR RHYTHM, +S1, +S2 - GI/Abdominal Exam GI & Abdominal Exam: Diminished Bowel Sounds, Soft - Extremities Exam Extremities exam: Positive for: pedal pulses present - Skin Skin Exam: Dry, Pallor - Additional Findings Additional findings: Palliative performance scale rating 30 % Results - Vital Signs Recent Vital Signs: Last Vital Signs Temp 99.6 F 06/13/17 07:00 Pulse 111 H 06/13/17 07:00 Resp 20 06/13/17 07:00 BP 140/82 06/13/17 11:08 Pulse Ox 95 06/13/17 07:00 - Labs Result Diagrams: 06/13/17 01:25 06/13/17 01:25 Labs: Laboratory Results - last 24 hr 06/13/17 06/13/17 06/13/17 00:26 01:25 01:25 WBC 12.8 H D RBC 4.39 Hgb 13.9 D Hct 40.4 MCV 92.0 MCH 31.7 MCHC 34.4 RDW 14.8 H Plt Count 303 MPV 9.1 Gran % 87.6 H Lymph % (Auto) 6.8 L [place] % (Auto) 4.7 Eos % (Auto) 0.7 L Baso % (Auto) 0.2 Gran # 11.22 H Lymph # 0.9 L [place] # 0.6 Eos # 0.1 Baso # 0.02 pO2 37 VBG pH 7.37 VBG pCO2 50.0 VBG HCO3 28.9 H VBG Total CO2 30.4 H VBG O2 Sat (Calc) 77.7 H VBG Base Excess 2.7 H VBG Potassium 4.0 Sodium 134.0 Chloride 95.0 L Glucose 123 H Lactate 3.4 H FiO2 21.0 Potassium Carbon Dioxide Anion Gap BUN Creatinine Est GFR ( Amer) Est GFR (Non-Af Amer) POC Glucose (mg/dL) 113 H Random Glucose Calcium Phosphorus Magnesium Total Bilirubin AST ALT Alkaline Phosphatase Total Protein Albumin Globulin Albumin/Globulin Ratio Venous Blood Potassium 4.0 06/13/17 06/13/17 01:25 07:45 WBC RBC Hgb Hct MCV MCH MCHC RDW Plt Count MPV Gran % Lymph % (Auto) [place] % (Auto) Eos % (Auto) Baso % (Auto) Gran # Lymph # [place] # Eos # Baso # pO2 58 H VBG pH 7.49 H VBG pCO2 37.0 L VBG HCO3 28.2 H VBG Total CO2 29.3 H VBG O2 Sat (Calc) 96.2 H VBG Base Excess 4.7 H VBG Potassium 4.2 Sodium 134 133.0 Chloride 95 L 98.0 Glucose 119 H Lactate 2.2 H FiO2 21.0 Potassium 3.9 Carbon Dioxide 28 Anion Gap 15 BUN 11 Creatinine 0.6 Est GFR ( Amer) > 60 Est GFR (Non-Af Amer) > 60 POC Glucose (mg/dL) Random Glucose 120 H Calcium 9.5 Phosphorus 3.1 Magnesium 2.0 Total Bilirubin 0.7 AST 36 ALT 27 Alkaline Phosphatase 74 Total Protein 7.6 Albumin 4.0 Globulin 3.6 Albumin/Globulin Ratio 1.1 Venous Blood Potassium 4.2 Assessment & Plan - Assessment and Plan (Free Text) Assessment: 77 year old female admitted with weakness, altered mental status, seizure disorder, failure to thrive. The patient is lethargic, non verbal. Patients at bedside. I explained that palliative services would provide him with support in decision making towards future goals of care. does not seem to grasp the severity of 's condition. He is expecting her to improve. I explained that despite medical interventions her health continues to decline. I asked if he had ever discussed resuscitation wishes with his . states that she would not want CPR/intubation. I asked him to consider making a DNR/DNI . feels he should speak with his children before doing so. I encouraged him to have this discussion soon. Psychosocial support given. Time spent in discussion regarding advance care planning, 30 minutes Plan: Palliative support Advance care planning
--- NOTE | 2017-06-13 14:28 | CP.PCM.PN ---
<Ziyad Florez - Last Filed: 06/13/17 14:25> Subjective - Date & Time of Evaluation Date of Evaluation: 06/13/17 Time of Evaluation: 09:40 - Subjective Subjective: Neurology Progress Note for Dr. Dunlap Service Patient seen and examined at bedside. No acute events reported, no further witnessed seizures reported. Unchanged as compared to exam yesterday; still not following commands, not responsive to verbal stimuli, and remains non- verbal. Initially tracks new staff in room or towards site of physical stimuli , but rapidly loses focus/interest. Objective - Vital Signs/Intake and Output Vital Signs (last 24 hours): Temp Pulse Resp BP Pulse Ox 99.6 F 111 H 20 140/82 95 06/13/17 07:00 06/13/17 07:00 06/13/17 07:00 06/13/17 11:08 06/13/17 07:00 Intake and Output: 06/13/17 06/13/17 06:59 18:59 Intake Total 360 Balance 360 - Medications Medications: Current Medications Acetaminophen (Tylenol 325mg Tab) 650 mg PO Q6H PRN PRN Reason: Temperature Last Admin: 06/12/17 06:19 Dose: 650 mg Albuterol/Ipratropium (Duoneb 3 Mg/0.5 Mg (3 Ml) Ud) 3 ml IH [id number] [facility] Last Admin: 06/13/17 13:14 Dose: 3 ml Amlodipine Besylate (Norvasc) 5 mg PO DAILY [facility] Last Admin: 06/13/17 11:08 Dose: 5 mg Clonidine HCl (Catapres) 0.2 mg PO Q6 PRN PRN Reason: Systolic Blood Pressure Last Admin: 06/08/17 00:32 Dose: 0.2 mg Sodium Chloride (Sodium Chloride 0.9%) 1,000 mls @ 75 mls/hr IV .[id number] [facility] Last Admin: 06/12/17 09:35 Dose: 75 mls/hr Vancomycin HCl (Vancomycin 1gm) 1 gm in 250 mls @ 167 mls/hr IVPB Q12H [facility] PRN Reason: Protocol Stop: 06/17/17 23:01 Last Admin: 06/13/17 11:07 Dose: 167 mls/hr Meropenem 1g/NS 100mL IVPB (Meropenem 1g/Ns 100ml Ivpb) 1 gm in 100 mls @ 100 mls/hr IVPB Q8 [facility] PRN Reason: Protocol Stop: 06/20/17 22:01 Last Admin: 06/13/17 05:32 Dose: 100 mls/hr Levetiracetam (Keppra 500mg Ivpb) 500 mg in 100 mls @ 400 mls/hr IVPB Q12 [facility] Last Admin: 06/13/17 11:07 Dose: 400 mls/hr Lorazepam (Ativan) 1 mg IVP Q6H PRN; Protocol PRN Reason: Anxiety Last Admin: 06/11/17 08:51 Dose: 1 mg Mirtazapine (Remeron) 15 mg PO HS [facility] Last Admin: 06/12/17 21:07 Dose: 15 mg Memantine Hcl/Donepezil Hcl [ Namzaric Titration Pack] (Home) 1 tab PO HS [facility] Last Admin: 06/12/17 21:07 Dose: Not Given Quetiapine Fumarate (Seroquel) 25 mg PO DAILY [facility] PRN Reason: Protocol Last Admin: 06/13/17 11:09 Dose: Not Given - Labs Labs: 06/13/17 01:25 06/13/17 01:25 PT 11.7 Seconds (9.9-11.8) 06/04/17 12:28 INR 1.08 (0.93-1.08) 06/04/17 12:28 APTT 26.7 Seconds (23.7-30.8) 06/04/17 12:28 - Additional Findings Additional findings: - Constitutional Appears: Non-toxic, Awake but Minimally responsive - Head Exam Head Exam: ATRAUMATIC, NORMAL INSPECTION, NORMOCEPHALIC - Eye Exam Eye Exam: Normal appearance, No scleral icterus or conjunctival injection. Not following commands for EOMI testing, but able to briefly track staff within room or towards site of physical stimuli - ENT Exam ENT Exam: Mucous Membranes Moist - Respiratory Exam Respiratory Exam: Clear to Auscultation Bilateral, NORMAL BREATHING PATTERN. absent: Rales, Rhonchi, Wheezes - Cardiovascular Exam Cardiovascular Exam: RRR, +S1, +S2 - GI/Abdominal Exam GI & Abdominal Exam: Normal Bowel Sounds, Soft. absent: Rigid, Firm - Extremities Exam Extremities exam: Positive for: normal inspection. Negative for: pedal edema - Neurological Exam Neurological exam: Awake but remains non-verbal, minimal spontaneous movements, not following commands - Psychiatric Exam Psychiatric exam: Unable to assess due to non-verbal state - Skin Skin Exam: Intact, Normal Color, Warm Assessment and Plan - Assessment and Plan (Free Text) Assessment: This is a 77 yo F with PMH of abdominal small cell carcinoma, ovarian ca, and mild dementia presents with generalized weakness and dehydration secondary to decreased oral intake over the last several days. Reconsulted for witnessed seizures. AMS 2/2 underlying dehydration, superimposed dementia, and underlying ovarian Ca. MRI shows chronic ischemic changes, and repeat MRI show same chronic microvascular changes without any acute hemorrhage or infarct. EEG shows polymorphic delta activity consistent with severe bilateral cerebral dysfunction. Plan: 1) Continue keppra, converted to IV forumulation given questionable ability to tolerate PO in somnolent state 2) concern for paraneoplastic syndrome, so NMDA receptor antibody ordered, sent out, pending results 3) Repeat MRI obtained, please see report for full details 4) Avoid overuse of opiates, as can lower seizure threshold. 5) PT/OT Patient reviewed and discussed with attending, Dr. Tatianna Dunlap. Please reconsult if patient experiences any changes in condition. <Christopher Dunlap - Last Filed: 06/13/17 17:34> Objective - Vital Signs/Intake and Output Vital Signs (last 24 hours): Temp Pulse Resp BP Pulse Ox 99.9 F H 131 H 20 174/125 H 95 06/13/17 16:20 06/13/17 16:20 06/13/17 16:20 06/13/17 16:20 06/13/17 16:20 Intake and Output: 06/13/17 06/13/17 06:59 18:59 Intake Total 360 10 Balance 360 10 - Medications Medications: Current Medications Acetaminophen (Tylenol 325mg Tab) 650 mg PO Q6H PRN PRN Reason: Temperature Last Admin: 06/12/17 06:19 Dose: 650 mg Albuterol/Ipratropium (Duoneb 3 Mg/0.5 Mg (3 Ml) Ud) 3 ml IH [id number] [facility] Last Admin: 06/13/17 13:14 Dose: 3 ml Alprazolam (Xanax) 0.25 mg PO Q8 PRN; Protocol PRN Reason: Anxiety Stop: 06/20/17 22:01 Last Admin: 06/13/17 16:47 Dose: 0.25 mg Amlodipine Besylate (Norvasc) 5 mg PO DAILY [facility] Last Admin: 06/13/17 11:08 Dose: 5 mg Clonidine HCl (Catapres) 0.2 mg PO Q6 PRN PRN Reason: Systolic Blood Pressure Last Admin: 06/13/17 15:09 Dose: 0.2 mg Sodium Chloride (Sodium Chloride 0.9%) 1,000 mls @ 75 mls/hr IV .[id number] [facility] Last Admin: 06/12/17 09:35 Dose: 75 mls/hr Vancomycin HCl (Vancomycin 1gm) 1 gm in 250 mls @ 167 mls/hr IVPB Q12H [facility] PRN Reason: Protocol Stop: 06/17/17 23:01 Last Admin: 06/13/17 11:07 Dose: 167 mls/hr Meropenem 1g/NS 100mL IVPB (Meropenem 1g/Ns 100ml Ivpb) 1 gm in 100 mls @ 100 mls/hr IVPB Q8 [facility] PRN Reason: Protocol Stop: 06/20/17 22:01 Last Admin: 06/13/17 16:45 Dose: 100 mls/hr Levetiracetam (Keppra 500mg Ivpb) 500 mg in 100 mls @ 400 mls/hr IVPB Q12 [facility] Last Admin: 06/13/17 11:07 Dose: 400 mls/hr Lorazepam (Ativan) 1 mg IVP Q6H PRN; Protocol PRN Reason: Anxiety Last Admin: 06/11/17 08:51 Dose: 1 mg Mirtazapine (Remeron) 15 mg PO HS [facility] Last Admin: 06/12/17 21:07 Dose: 15 mg Memantine Hcl/Donepezil Hcl [ Namzaric Titration Pack] (Home) 1 tab PO HS [facility] Last Admin: 06/12/17 21:07 Dose: Not Given Quetiapine Fumarate (Seroquel) 25 mg PO DAILY [facility] PRN Reason: Protocol Last Admin: 06/13/17 11:09 Dose: Not Given - Labs Labs: 06/13/17 01:25 06/13/17 01:25 PT 11.7 Seconds (9.9-11.8) 06/04/17 12:28 INR 1.08 (0.93-1.08) 06/04/17 12:28 APTT 26.7 Seconds (23.7-30.8) 06/04/17 12:28 Attending/Attestation - Attestation I have personally seen and examined this patient.: Yes I have fully participated in the care of the patient.: Yes I have reviewed all pertinent clinical information, including history, physical exam and plan: Yes
--- NOTE | 2017-06-13 14:37 | CP.PCM.PN ---
Subjective - Date & Time of Evaluation Date of Evaluation: 06/13/17 Time of Evaluation: 08:50 - Subjective Subjective: Patient continues to be lethargic. Responds to verbal and tactile stimuli with localization. Had low grade fever overnight. Objective - Vital Signs/Intake and Output Vital Signs (last 24 hours): Temp Pulse Resp BP Pulse Ox 99.6 F 111 H 20 148/83 95 06/13/17 07:00 06/13/17 07:00 06/13/17 07:00 06/13/17 07:00 06/13/17 07:00 Intake and Output: 06/13/17 06/13/17 06:59 18:59 Intake Total 360 Balance 360 - Medications Medications: Current Medications Acetaminophen (Tylenol 325mg Tab) 650 mg PO Q6H PRN PRN Reason: Temperature Last Admin: 06/12/17 06:19 Dose: 650 mg Albuterol/Ipratropium (Duoneb 3 Mg/0.5 Mg (3 Ml) Ud) 3 ml IH [id number] [facility] Last Admin: 06/13/17 07:26 Dose: 3 ml Amlodipine Besylate (Norvasc) 5 mg PO DAILY [facility] Last Admin: 06/12/17 09:32 Dose: 5 mg Clonidine HCl (Catapres) 0.2 mg PO Q6 PRN PRN Reason: Systolic Blood Pressure Last Admin: 06/08/17 00:32 Dose: 0.2 mg Sodium Chloride (Sodium Chloride 0.9%) 1,000 mls @ 75 mls/hr IV .[id number] [facility] Last Admin: 06/12/17 09:35 Dose: 75 mls/hr Vancomycin HCl (Vancomycin 1gm) 1 gm in 250 mls @ 167 mls/hr IVPB Q12H [facility] PRN Reason: Protocol Stop: 06/17/17 23:01 Last Admin: 06/12/17 23:43 Dose: 167 mls/hr Meropenem 1g/NS 100mL IVPB (Meropenem 1g/Ns 100ml Ivpb) 1 gm in 100 mls @ 100 mls/hr IVPB Q8 [facility] PRN Reason: Protocol Stop: 06/20/17 22:01 Last Admin: 06/13/17 05:32 Dose: 100 mls/hr Levetiracetam (Keppra 500mg Ivpb) 500 mg in 100 mls @ 400 mls/hr IVPB Q12 [facility] Last Admin: 06/12/17 21:07 Dose: 400 mls/hr Lorazepam (Ativan) 1 mg IVP Q6H PRN; Protocol PRN Reason: Anxiety Last Admin: 06/11/17 08:51 Dose: 1 mg Mirtazapine (Remeron) 15 mg PO HS [facility] Last Admin: 06/12/17 21:07 Dose: 15 mg Memantine Hcl/Donepezil Hcl [ Namzaric Titration Pack] (Home) 1 tab PO HS [facility] Last Admin: 06/12/17 21:07 Dose: Not Given Quetiapine Fumarate (Seroquel) 25 mg PO DAILY [facility] PRN Reason: Protocol Last Admin: 06/12/17 09:33 Dose: 25 mg - Labs Labs: 06/13/17 01:25 06/13/17 01:25 PT 11.7 Seconds (9.9-11.8) 06/04/17 12:28 INR 1.08 (0.93-1.08) 06/04/17 12:28 APTT 26.7 Seconds (23.7-30.8) 06/04/17 12:28 - Constitutional Appears: Other (somewhat lethargic) - Respiratory Exam Respiratory Exam: Decreased Breath Sounds - Cardiovascular Exam Cardiovascular Exam: +S1, +S2 - GI/Abdominal Exam GI & Abdominal Exam: Soft. absent: Tenderness Assessment and Plan - Assessment and Plan (Free Text) Plan: Assessment Systemic Inflammatory Response Syndrome, with fever, etiology unclear, R/O sepsis but no specific source identified, R/O due to metastatic uterine cancer Acute encephalopathy, R/O paraneoplastic syndrome, R/P anti-NMDA receptor encephalitis R/O toxic-metabolic encephalopathy HTN osteoarthritis dementia obsessive-compulsive disorder S/P right sided port-a-cath placement Plan continue Vancomycin and Merrem (day 5); follow up repeat blood cx done yesterday ; brain MRI shows chronic microvascular changes but no other specific lesions; right upper extremity ultrasound does not show DVT associated with the port-a- cath Neuro evaluating for anti-NMDA receptor encephalitis will continue to monitor clinically overall prognosis is poor
[2017-06-13] MEDS ORDERED: Oxycodone/Acetaminophen 5/325 mg Tab PO PRN (18:51)
[2017-06-13] MEDS: Thiamine 100 mg/ml Inj IV SCH (20:16)
[2017-06-14] MEDS: Albuterol-Ipratrop 3 mg / 0.5 (3 ml) UD IH SCH ×4 (01:48→19:56)
--- NOTE | 2017-06-14 02:01 | PN ---
DATE: 06/13/2017 Ms. Joi Evans's hospital visit on the medical floor. For Dr. Stevenson. SUBJECTIVE: The patient is a 77-year-old female seen lying, awake in bed with the patient emotionally distraught with episodes of crying and unruly behavior, shouting that she notes she is dying. With then lapses of her attention span with her tension being shifted with the patient then appeared more subdued, listening to conversations and the patient complying with questioning and with assistance with physical exam. This is in contrast to her almost catatonic behavior where she was nonverbal for the past few days. With this, the patient's nurse noted that her medications were adjusted when she was admitted to the hospital with Namenda being changed to Remeron as per her primary doctor on 06/05/2017 with her symptoms developing soon afterwards. With the patient developing fevers with unruly behavior, initially mental status change with tremor and questionable seizure type activity. After discussion with her primary doctor along with Dr. Dunlap, neurology, he was recommended to discontinue the Remeron with the patient now observed to be more vocal. She was nonverbal prior to this with recent MRI testing of her brain showing chronic microvascular changes in the periventricular white matter with no acute infarct or hemorrhage noted. With the suspicion that this may be an atypical side effect of the possible medication induced changes. The patient did have 2 MRIs of the brain with neither showing any hemorrhage or mass, possibly causing her mental status change except for the microvascular changes. She appears to be in no acute distress with her at the bedside. OBJECTIVE/PHYSICAL EXAMINATION: VITAL SIGNS: Temperature 99.9, pulse 131, respirations 20, blood pressure 160/92, and pulse ox 95%. She appears to be in agitated state at this point with consideration for anxiolytic as per Dr. Dunlap. HEENT: Unremarkable. Tongue is moist and midline. NECK: Supple. HEART: Tachy rate, regular rhythm. LUNGS: Clear. ABDOMEN: Soft and nontender. EXTREMITIES: No edema. Free range of motion. NEUROLOGIC: She is agitated. Awake, but confused with emotional outburst with crying and then being complacent and listening to questioning. SKIN: Warm,dry and clear. LABORATORY DATA: The patient's labs were done. White blood count of 12.8, hemoglobin of 13.9, hematocrit of 40.4, and platelet count of 303,000. Chem metabolic panel showing a normal chem metabolic panel. A blood gas was done earlier today showing a pH of 7.49. MEDICATIONS: The patient's medicines were reviewed and they include Ativan, Catapres, DuoNeb, Keppra, Namzaric, meropenem, Norvasc, Percocet, Seroquel, Tylenol, vancomycin, thiamine, and Xanax. It should be noted that Remeron was discontinued with her memantine, donepezil being taken from home with this also, not given last night. Blood cultures were done and they were negative after 24 hours with urine culture also negative. ASSESSMENT: Metastatic small cell carcinoma with T4 vertebral body lymphadenopathy with suspicion for endometrial or uterine neoplasm. Questionable dehiscence of the port site at one point. Fevers of unknown origin, failure to thrive, dementia, and mental status change possibly secondary to medication, and questionable seizure disorder. PLAN: After conversation with Dr. Stevenson and Dr. Dunlap, nursing staff, and the patient's and her daughter via telephone. She is in [place] at this point. The plan is to discontinue the Remeron. We will also hold the memantine and donepezil. We will monitor her clinically with labs, with antibiotics to continue as per Dr. Neville with the prognosis for this patient is guarded. Jonatan Wiggins MD
[2017-06-14] MEDS: Thiamine 100 mg/ml Inj IV SCH (03:45)
[2017-06-14] MEDS: Meropenem 1g/NS 100mL IVPB 1 GM/100 ML PIGGYBACK IVPB SCH ×3 (05:37→21:45)
[2017-06-14] MEDS: levETIRAcetam 500mg IVPB 500 MG/100 ML BAG IVPB SCH ×2 (09:38→21:12)
--- NOTE | 2017-06-14 10:31 | CT ---
PROCEDURE: CT Chest without contrast HISTORY: FEVER COMPARISON: None. TECHNIQUE: Contiguous axial images were obtained through the chest without intravenous contrast enhancement. Sagittal and coronal reconstructions were performed. Radiation dose (DLP): 582 mGy-cm. This CT exam was performed using one or more of the following dose reduction techniques: Automated exposure control, adjustment of the mA and/or kV according to patient size, and/or use of iterative reconstruction technique. FINDINGS: LUNGS: There is consolidation around the right giuseppe with air bronchograms. There is also some consolidation at the right lung base. There is a small effusion. There is elevation of the right hemidiaphragm MEDIASTINUM: Unremarkable thoracic aorta. No aneurysm. Normal sized heart. Main pulmonary artery unremarkable. No vascular congestion. No lymphadenopathy. PLEURA: No pleural fluid. No pneumothorax. BONES: No fracture. No destructive lesion. UPPER ABDOMEN: Small cyst in the right lobe of the liver measuring 12 mm OTHER FINDINGS: None. IMPRESSION: Right perihilar and right basilar consolidation with air bronchograms consistent with pneumonia.
[2017-06-14] MEDS: Vancomycin 1gm in NS 250ml 1 GM/250 ML BAG IVPB SCH ×2 (11:05→23:05)
[2017-06-14] MEDS: Thiamine 100 MG in Sodium Chloride 0.9% 50 ML IV SCH (11:06)
--- NOTE | 2017-06-14 11:51 | PN ---
DATE: 06/14/2017 SUBJECTIVE: The patient is in bed, in no acute distress. The patient is seen earlier this morning, chronically ill, debilitated with temperature of 98. PHYSICAL EXAMINATION VITAL SIGNS: T-max last night was 101, blood pressure was 130/80, respiratory rate of 20, and heart rate of 91. HEENT: Examination of the HEENT is unremarkable. NECK: Supple. LUNGS: Have decreased breath sounds. HEART: Normal S1 and S2. ABDOMEN: Soft and nontender. LABORATORY DATA: [place] [address], hemoglobin of 13, and platelets of 303. Chemistries revealed the BUN of 11, creatinine of 0.6, and procalcitonin is noted. Urinalysis is noted. Microbiology reveals that blood cultures are negative. ASSESSMENT AND PLAN: This is a 77-year-old female who was overall in poor condition. She is lethargic and now continuous to do poorly with SIRS (systemic inflammatory response syndrome) and with metastatic uterine cancer and now hypertension, osteoarthritis, dementia, obsessive-compulsive disorder, status post right-sided Port-A-Cath placement, on vancomycin and meropenem day number 6, with all cultures are negative, the patient continues to have intermitted fevers with normal procalcitonin. Overall, prognosis is quite poor. Repeat blood cultures from the 06/12/2017 showed no growth and urine cultures are no growth. We will order a CAT scan of the chest and repeat procalcitonin and we will check a final culture results. We will follow with you. Overall prognosis is poor. Thony Neville MD
--- NOTE | 2017-06-14 11:55 | CP.PCM.PN ---
<Ziyad Florez - Last Filed: 06/14/17 12:39> Subjective - Date & Time of Evaluation Date of Evaluation: 06/14/17 Time of Evaluation: 10:30 - Subjective Subjective: Neurology Progress Note for Dr. Dunlap Service Patient seen and examined at bedside. Overnight, patient had pink tinged urine and a rectal temp of 101.1F; no further witnessed seizures reported. More agitated this AM after Remeron held. More awake today, drinking from cup provided by hospital, but frequently tearful and frequently babbling incoherently/repeating the phrase "I want to see him" while crying. Intermittently able to answer direct yes/no questions, but mainly disoriented and confused. Objective - Vital Signs/Intake and Output Vital Signs (last 24 hours): Temp Pulse Resp BP Pulse Ox 98.3 F 91 H 20 136/80 96 06/14/17 08:07 06/14/17 08:07 06/14/17 08:07 06/14/17 09:20 06/14/17 08:07 Intake and Output: 06/14/17 06/14/17 06:59 18:59 Intake Total 480 Balance 480 - Medications Medications: Current Medications Acetaminophen (Tylenol 325mg Tab) 650 mg PO Q6H PRN PRN Reason: Temperature Last Admin: 06/13/17 18:34 Dose: 650 mg Albuterol/Ipratropium (Duoneb 3 Mg/0.5 Mg (3 Ml) Ud) 3 ml IH [id number] [facility] Last Admin: 06/14/17 07:31 Dose: 3 ml Alprazolam (Xanax) 0.25 mg PO Q8 PRN; Protocol PRN Reason: Anxiety Stop: 06/20/17 22:01 Last Admin: 06/13/17 16:47 Dose: 0.25 mg Amlodipine Besylate (Norvasc) 5 mg PO DAILY [facility] Last Admin: 06/14/17 09:20 Dose: 5 mg Clonidine HCl (Catapres) 0.2 mg PO Q6 PRN PRN Reason: Systolic Blood Pressure Last Admin: 06/13/17 15:09 Dose: 0.2 mg Sodium Chloride (Sodium Chloride 0.9%) 1,000 mls @ 75 mls/hr IV .[id number] [facility] Last Admin: 06/12/17 09:35 Dose: 75 mls/hr Vancomycin HCl (Vancomycin 1gm) 1 gm in 250 mls @ 167 mls/hr IVPB Q12H [facility] PRN Reason: Protocol Stop: 06/17/17 23:01 Last Admin: 06/14/17 11:05 Dose: 167 mls/hr Meropenem 1g/NS 100mL IVPB (Meropenem 1g/Ns 100ml Ivpb) 1 gm in 100 mls @ 100 mls/hr IVPB Q8 [facility] PRN Reason: Protocol Stop: 06/20/17 22:01 Last Admin: 06/14/17 05:37 Dose: 100 mls/hr Levetiracetam (Keppra 500mg Ivpb) 500 mg in 100 mls @ 400 mls/hr IVPB Q12 [facility] Last Admin: 06/14/17 09:38 Dose: 400 mls/hr Thiamine HCl 100 mg/ Sodium (Chloride) 51 mls @ 102 mls/hr IV Q8H [facility] Last Admin: 06/14/17 11:06 Dose: 102 mls/hr Lorazepam (Ativan) 1 mg IVP Q6H PRN; Protocol PRN Reason: Anxiety Last Admin: 06/14/17 11:28 Dose: 1 mg Memantine Hcl/Donepezil Hcl [ Namzaric Titration Pack] (Home) 1 tab PO HS [facility] Last Admin: 06/12/17 21:07 Dose: Not Given Oxycodone/Acetaminophen (Percocet 5/325 Mg Tab) 1 tab PO Q6H PRN PRN Reason: Pain, severe (8-10) Stop: 06/16/17 18:52 Quetiapine Fumarate (Seroquel) 25 mg PO DAILY [facility] PRN Reason: Protocol Last Admin: 06/14/17 11:09 Dose: Not Given - Labs Labs: 06/13/17 01:25 06/13/17 01:25 PT 11.7 Seconds (9.9-11.8) 06/04/17 12:28 INR 1.08 (0.93-1.08) 06/04/17 12:28 APTT 26.7 Seconds (23.7-30.8) 06/04/17 12:28 - Additional Findings Additional findings: - Constitutional Appears: Non-toxic, Awake, Somewhat alert, Tearful but not in overt physical distress - Head Exam Head Exam: ATRAUMATIC, NORMAL INSPECTION, NORMOCEPHALIC - Eye Exam Eye Exam: Teary-eyed, No scleral icterus or conjunctival injection. Not following commands for EOMI testing, but able to track staff within room or towards site of physical stimuli - ENT Exam ENT Exam: Mucous Membranes Moist, Drinking from cup help by without overt difficulty or distress - Respiratory Exam Respiratory Exam: Clear to Auscultation Bilateral, NORMAL BREATHING PATTERN. absent: Rales, Rhonchi, Wheezes - Cardiovascular Exam Cardiovascular Exam: RRR, +S1, +S2 - GI/Abdominal Exam GI & Abdominal Exam: Normal Bowel Sounds, Soft. absent: Rigid, Firm - Extremities Exam Extremities exam: Positive for: normal inspection, tremulous upper extremities. Negative for: pedal edema - Neurological Exam Neurological exam: Awake and somewhat alert, able to answer some questions yes/ no but otherwise babbling incoherently or repeating words - Psychiatric Exam Psychiatric exam: Distressed and tearful, still confused, not answering most questions appropriately, disoriented - Skin Skin Exam: Intact, Normal Color, Warm Assessment and Plan - Assessment and Plan (Free Text) Assessment: This is a 77 yo F with PMH of abdominal small cell carcinoma, ovarian ca, and mild dementia presents with generalized weakness and dehydration secondary to decreased oral intake over the last several days. Reconsulted for witnessed seizures. AMS 2/2 underlying dehydration, superimposed dementia, and underlying ovarian Ca. MRI shows chronic ischemic changes, and repeat MRI show same chronic microvascular changes without any acute hemorrhage or infarct. EEG shows polymorphic delta activity consistent with severe bilateral cerebral dysfunction. May also be oversedated by Remeron, will hold for now and reassess. Plan: 1) Continue keppra, converted to IV forumulation given questionable ability to tolerate PO in somnolent state 2) concern for paraneoplastic syndrome, so NMDA receptor antibody ordered, sent out, pending results 3) Repeat MRI obtained, please see report for full details 4) Avoid overuse of opiates, as can lower seizure threshold. 5) Holding Remeron, Ativan ok for anxiety 6) PT/OT Patient reviewed and discussed with attending, Dr. Tatianna Dunlap. <Christopher Dunlap - Last Filed: 06/14/17 12:45> Objective - Vital Signs/Intake and Output Vital Signs (last 24 hours): Temp Pulse Resp BP Pulse Ox 98.3 F 91 H 20 136/80 96 06/14/17 08:07 06/14/17 08:07 06/14/17 08:07 06/14/17 09:20 06/14/17 08:07 Intake and Output: 06/14/17 06/14/17 06:59 18:59 Intake Total 480 Balance 480 - Medications Medications: Current Medications Acetaminophen (Tylenol 325mg Tab) 650 mg PO Q6H PRN PRN Reason: Temperature Last Admin: 06/13/17 18:34 Dose: 650 mg Albuterol/Ipratropium (Duoneb 3 Mg/0.5 Mg (3 Ml) Ud) 3 ml IH [id number] [facility] Last Admin: 06/14/17 07:31 Dose: 3 ml Alprazolam (Xanax) 0.25 mg PO Q8 PRN; Protocol PRN Reason: Anxiety Stop: 06/20/17 22:01 Last Admin: 06/13/17 16:47 Dose: 0.25 mg Amlodipine Besylate (Norvasc) 5 mg PO DAILY [facility] Last Admin: 06/14/17 09:20 Dose: 5 mg Clonidine HCl (Catapres) 0.2 mg PO Q6 PRN PRN Reason: Systolic Blood Pressure Last Admin: 06/13/17 15:09 Dose: 0.2 mg Sodium Chloride (Sodium Chloride 0.9%) 1,000 mls @ 75 mls/hr IV .[id number] [facility] Last Admin: 06/12/17 09:35 Dose: 75 mls/hr Vancomycin HCl (Vancomycin 1gm) 1 gm in 250 mls @ 167 mls/hr IVPB Q12H [facility] PRN Reason: Protocol Stop: 06/17/17 23:01 Last Admin: 06/14/17 11:05 Dose: 167 mls/hr Meropenem 1g/NS 100mL IVPB (Meropenem 1g/Ns 100ml Ivpb) 1 gm in 100 mls @ 100 mls/hr IVPB Q8 [facility] PRN Reason: Protocol Stop: 06/20/17 22:01 Last Admin: 06/14/17 05:37 Dose: 100 mls/hr Levetiracetam (Keppra 500mg Ivpb) 500 mg in 100 mls @ 400 mls/hr IVPB Q12 [facility] Last Admin: 06/14/17 09:38 Dose: 400 mls/hr Thiamine HCl 100 mg/ Sodium (Chloride) 51 mls @ 102 mls/hr IV Q8H [facility] Last Admin: 06/14/17 11:06 Dose: 102 mls/hr Lorazepam (Ativan) 1 mg IVP Q6H PRN; Protocol PRN Reason: Anxiety Last Admin: 06/14/17 11:28 Dose: 1 mg Memantine Hcl/Donepezil Hcl [ Namzaric Titration Pack] (Home) 1 tab PO HS [facility] Last Admin: 06/12/17 21:07 Dose: Not Given Oxycodone/Acetaminophen (Percocet 5/325 Mg Tab) 1 tab PO Q6H PRN PRN Reason: Pain, severe (8-10) Stop: 06/16/17 18:52 Quetiapine Fumarate (Seroquel) 25 mg PO DAILY [facility] PRN Reason: Protocol Last Admin: 06/14/17 11:09 Dose: Not Given - Labs Labs: 06/13/17 01:25 06/13/17 01:25 PT 11.7 Seconds (9.9-11.8) 06/04/17 12:28 INR 1.08 (0.93-1.08) 06/04/17 12:28 APTT 26.7 Seconds (23.7-30.8) 06/04/17 12:28 Attending/Attestation - Attestation I have personally seen and examined this patient.: Yes I have fully participated in the care of the patient.: Yes I have reviewed all pertinent clinical information, including history, physical exam and plan: Yes
--- NOTE | 2017-06-14 12:48 | CP.PCM.PN ---
Subjective - Date & Time of Evaluation Date of Evaluation: 06/14/17 Time of Evaluation: 11:00 - Subjective Subjective: Awake, crying and yelling out at times. Objective - Vital Signs/Intake and Output Vital Signs (last 24 hours): Temp Pulse Resp BP Pulse Ox 98.3 F 91 H 20 136/80 96 06/14/17 08:07 06/14/17 08:07 06/14/17 08:07 06/14/17 09:20 06/14/17 08:07 Intake and Output: 06/14/17 06/14/17 06:59 18:59 Intake Total 480 Balance 480 - Medications Medications: Current Medications Acetaminophen (Tylenol 325mg Tab) 650 mg PO Q6H PRN PRN Reason: Temperature Last Admin: 06/13/17 18:34 Dose: 650 mg Albuterol/Ipratropium (Duoneb 3 Mg/0.5 Mg (3 Ml) Ud) 3 ml IH [id number] [facility] Last Admin: 06/14/17 07:31 Dose: 3 ml Alprazolam (Xanax) 0.25 mg PO Q8 PRN; Protocol PRN Reason: Anxiety Stop: 06/20/17 22:01 Last Admin: 06/13/17 16:47 Dose: 0.25 mg Amlodipine Besylate (Norvasc) 5 mg PO DAILY [facility] Last Admin: 06/14/17 09:20 Dose: 5 mg Clonidine HCl (Catapres) 0.2 mg PO Q6 PRN PRN Reason: Systolic Blood Pressure Last Admin: 06/13/17 15:09 Dose: 0.2 mg Sodium Chloride (Sodium Chloride 0.9%) 1,000 mls @ 75 mls/hr IV .[id number] [facility] Last Admin: 06/12/17 09:35 Dose: 75 mls/hr Vancomycin HCl (Vancomycin 1gm) 1 gm in 250 mls @ 167 mls/hr IVPB Q12H [facility] PRN Reason: Protocol Stop: 06/17/17 23:01 Last Admin: 06/14/17 11:05 Dose: 167 mls/hr Meropenem 1g/NS 100mL IVPB (Meropenem 1g/Ns 100ml Ivpb) 1 gm in 100 mls @ 100 mls/hr IVPB Q8 [facility] PRN Reason: Protocol Stop: 06/20/17 22:01 Last Admin: 06/14/17 05:37 Dose: 100 mls/hr Levetiracetam (Keppra 500mg Ivpb) 500 mg in 100 mls @ 400 mls/hr IVPB Q12 [facility] Last Admin: 06/14/17 09:38 Dose: 400 mls/hr Thiamine HCl 100 mg/ Sodium (Chloride) 51 mls @ 102 mls/hr IV Q8H [facility] Last Admin: 06/14/17 11:06 Dose: 102 mls/hr Lorazepam (Ativan) 1 mg IVP Q6H PRN; Protocol PRN Reason: Anxiety Last Admin: 06/14/17 11:28 Dose: 1 mg Memantine Hcl/Donepezil Hcl [ Namzaric Titration Pack] (Home) 1 tab PO HS [facility] Last Admin: 06/12/17 21:07 Dose: Not Given Oxycodone/Acetaminophen (Percocet 5/325 Mg Tab) 1 tab PO Q6H PRN PRN Reason: Pain, severe (8-10) Stop: 06/16/17 18:52 Quetiapine Fumarate (Seroquel) 25 mg PO DAILY [facility] PRN Reason: Protocol Last Admin: 06/14/17 11:09 Dose: Not Given - Labs Labs: 06/13/17 01:25 06/13/17 01:25 PT 11.7 Seconds (9.9-11.8) 06/04/17 12:28 INR 1.08 (0.93-1.08) 06/04/17 12:28 APTT 26.7 Seconds (23.7-30.8) 06/04/17 12:28 - Constitutional Appears: Chronically Ill - Eye Exam Eye Exam: Normal appearance, PERRL - ENT Exam ENT Exam: Mucous Membranes Moist - Respiratory Exam Respiratory Exam: Decreased Breath Sounds, NORMAL BREATHING PATTERN - Cardiovascular Exam Cardiovascular Exam: REGULAR RHYTHM, +S1, +S2 - GI/Abdominal Exam GI & Abdominal Exam: Soft, Diminished Bowel Sounds - Extremities Exam Additional comments: tremulous upper extremities - Psychiatric Exam Psychiatric exam: Agitated - Skin Skin Exam: Dry, Pallor Assessment and Plan - Assessment and Plan (Free Text) Assessment: 77 year old female with history of abdominal wall small cell carcinoma who was admitted with weakness, dehydration and altered mental status. Patient's at bedside. He has not decided upon resuscitation status. He is waiting to speak with his children before making decision regarding DNR/DNI. His daughter is expected to arrive from [place] tomorrow. Family will meet to discuss future goals of care. Plan: Medications, commercial sales consultant notes reviewed and appreciated. No further recommendations from palliative services at this time.
--- NOTE | 2017-06-14 14:20 | PN ---
SUBJECTIVE: This is a 77-year-old white female, admitted to the hospital with small-cell metastatic carcinoma of the pelvis. The patient also has history of hypertension and mild dementia. The patient has had recent onset of seizure activity, and controlled with Keppra. She had been non-conversant for the last 48 hours, but today she is perseverating, repeating same sentence multiple times. PHYSICAL EXAMINATION VITAL SIGNS: Stable. She is afebrile today. Her temperature is 98.3, blood pressure is down to 136/80, O2 saturation is 96%. CHEST: Clear to auscultation and percussion. She does have a right lower lobe infiltrate and pneumonia. HEART: Regular sinus rhythm. EXTREMITIES: Without cyanosis, clubbing, or edema. LABORATORY DATA: Reveal a white count of 12.8, otherwise unremarkable. Her is at the bedside. She is repeating the same sentence that she is going to over and over, possibly due to her underlying dementia and possible psychosis. PLAN: The plan is to discontinue her Remeron. She is still on Seroquel small dose at bedtime, and she is on p.r.n. Xanax for agitation. The plan is to continue IV antibiotics. Blood culture so far negative as are urine cultures. Repeat her laboratory data and follow her clinically. Darinel Wallace MD
--- NOTE | 2017-06-14 18:55 | PN ---
DATE: 06/14/2017 SUBJECTIVE: The patient is a 77-year-old female seen lying awake in bed, at the bedside with the patient, intermittently shouting "I want my daughter", seen as being anxious with known dementia with agitation off and on with outbursts and then being quiet; tearful with incoherent phrases. With this the patient is otherwise in no acute distress with anxiolytics given as per Dr. Dunlap, neurology, and her primary doctor. OBJECTIVE/PHYSICAL EXAMINATION: VITAL SIGNS: Temperature, high temperature 101.1 yesterday, 98.3 today; pulse 91, respirations 20, blood pressure 136/80, and pulse ox of 96%. HEENT: Unremarkable. NECK: Supple. HEART: Tachy rate, regular rhythm. LUNGS: Rales at the right base. ABDOMEN: Soft and nontender. EXTREMITIES: No edema. SKIN: Warm and dry. NEUROLOGIC: Awake, alert and agitated. LABORATORY DATA: The patient's labs were done yesterday, will be repeated tomorrow. CT scan of the chest done earlier today, it was read as right perihilar and right consolidation with air bronchogram consistent with pneumonia. ASSESSMENT: For this patient is that of acute delirium secondary to elevated temperature pneumonia with known dementia, possible mental status change secondary to medications, questionable seizure disorder. Known metastatic small cell carcinoma T4 vertebral body lymphadenopathy suspicious for endometrial uterine. Jonatan Wiggins MD
[2017-06-14] MEDS: Sodium Chloride 0.9% 1,000 ML IV SCH (21:46)
[2017-06-15] MEDS: Albuterol-Ipratrop 3 mg / 0.5 (3 ml) UD IH SCH ×4 (02:47→20:25)
[2017-06-15] MEDS: Thiamine 100 MG in Sodium Chloride 0.9% 50 ML IV SCH ×5 (02:55→20:52)
[2017-06-15] MEDS: Meropenem 1g/NS 100mL IVPB 1 GM/100 ML PIGGYBACK IVPB SCH ×3 (06:40→21:41)
[2017-06-15 07:13] LABS: BASO # 0.03 K/mm3 (0.0-2.0); BASO % 0.5 % (0.0-3.0); EOS # 0.3 (0.0-0.7); EOS % 4.5 % (1.5-5.0); GRAN # 3.97 (1.4-6.5); GRAN % 63.9 % (50.0-68.0); HEMATOCRIT 33.7 % (36.0-48.0); LYMPH # 1.5 (1.2-3.4); LYMPH % 24.8 % (22.0-35.0); MEAN CELL VOLUME 93.9 fl (80.0-105.0); MEAN CORPUSCULAR HEMOGLOBIN 30.1 pg (25.0-35.0); MEAN PLATELET VOLUME 8.4 fl (7.0-11.0); MONO # 0.4 (0.1-0.6); MONO % 6.3 % (1.0-6.0); RED CELL DISTRIBUTION WIDTH 14.8 % (11.5-14.5); WHITE BLOOD COUNT 6.2 10^3/ul (4.5-11.0)
[2017-06-15 07:23] LABS: ALB/GLOB RATIO 1.1 (1.1-1.8); ALKALINE PHOSPHATASE 59 U/L (38-126); ALT/SGPT 31 U/L (7-56); AST/SGOT 37 U/L (14-36); BILIRUBIN,TOTAL 0.5 mg/dL (0.2-1.3); BLOOD UREA NITROGEN 10 mg/dL (7-21); CALCIUM 8.6 mg/dL (8.4-10.5); CARBON DIOXIDE 30 mmol/L (21-33); CHLORIDE 101 mmol/L (98-107); GFR AFRICAN-AMERICAN > 60; GLUCOSE,RANDOM 86 mg/dL (70-110); POTASSIUM 3.2 mmol/L (3.6-5.0); SODIUM 139 mmol/L (132-148); TOTAL PROTEIN 6.3 g/dL (5.8-8.3)
[2017-06-15] MEDS: levETIRAcetam 500mg IVPB 500 MG/100 ML BAG IVPB SCH ×2 (09:48→21:18)
--- NOTE | 2017-06-15 12:39 | PN ---
SUBJECTIVE: A 77-year-old white female, much more awake and alert today. Family is at the bedside. The patient has low-grade fever at 99 for the last several days, temperature has been up and down. A recent CT showed air bronchograms and perihilar infiltrate consistent with aspiration pneumonia. The patient is on an IV antibiotics. She has no growth in cultures. Her white count is dropped from 12,000 to 6000. Her vital signs are stable. Blood pressure is stable. Potassium is slightly low at 3.2. The patient is more awake and alert today; swallowing better. We will repeat her swallowing evaluation, try to eventually get her out of bed to chair and start some physical therapy and occupational therapy. Continue nebulizer therapy. The patient does have metastatic small cell cancer of the abdomen and recent change in mental status, recent seizure history. Darinel Wallcae MD
[2017-06-15] MEDS: Vancomycin 1gm in NS 250ml 1 GM/250 ML BAG IVPB SCH ×2 (13:05→22:45)
--- NOTE | 2017-06-15 15:20 | PN ---
DATE: 06/15/2017 [place] [facility] [place] [facility] [place] on the medical floor. For Dr. Stevenson. SUBJECTIVE: The patient is a 77-year-old female seen sitting up in a chair, much more calm this visit with her daughter arriving early this morning at 6 o'clock with the patient also more coherent to conversation and more compliant with request for attempts at questioning. She now is noted to have CT scan read as pneumonia on the right side with the patient being treated with antibiotics. She is otherwise no acute distress with a swallowing evaluation necessary as per primary doctor with liquids being tolerated. OBJECTIVE: VITAL SIGNS: Temperature 99, pulse 98, respirations 22, blood pressure 138/84, pulse ox 94%. HEENT: Unremarkable. Tongue is moist to midline. NECK: Supple. HEART: Tachy rate, regular rhythm. LUNGS: Rales faint at the right base. ABDOMEN: Soft, nontender. EXTREMITIES: No edema. SKIN: Warm and dry. NEUROLOGIC: Awake, alert and calm at this visit. LABORATORY DATA: The patient's labs were done. White blood cell count of 6.2 down from 12.8 yesterday, hemoglobin of 10.8 down from 13.9 yesterday with a hematocrit of 33.7 and with a platelet count of 267,000 with question about the labs from yesterday whether the labs were spun properly as the hemoglobin had dropped from 13.9 yesterday to 10.8 today with the previous value being 11.4. Her chem metabolic panel showed a potassium of 3.2, otherwise normal chem metabolic panel. ASSESSMENT: For this patient is that of acute mental status change, delirium, now improved, questionable new onset seizure disorder, fever of unknown origin, pneumonia, metastatic small cell carcinoma with T4 vertebral body lymphadenopathy, dementia, failure to thrive, deconditioning. PLAN: For this patient after conversation with her daughter, her , and the patient and Dr. Stevenson, we will continue her present medical regimen with replenishment of her electrolytes, otherwise to follow up clinically. Jonatan Wiggins MD
[2017-06-15] MEDS: Potassium Chloride 20 mEq ER Tab PO SCH ×2 (15:51→21:19)
[2017-06-16] MEDS: Albuterol-Ipratrop 3 mg / 0.5 (3 ml) UD IH SCH ×4 (01:45→20:15)
[2017-06-16] MEDS: Thiamine 100 MG in Sodium Chloride 0.9% 50 ML IV SCH ×4 (03:50→21:20)
[2017-06-16] MEDS: Meropenem 1g/NS 100mL IVPB 1 GM/100 ML PIGGYBACK IVPB SCH ×3 (05:24→22:36)
[2017-06-16] MEDS: levETIRAcetam 500mg IVPB 500 MG/100 ML BAG IVPB SCH ×2 (09:21→21:57)
[2017-06-16] MEDS: Potassium Chloride 20 mEq ER Tab PO SCH ×2 (12:16→17:39)
[2017-06-16] MEDS: Vancomycin 1gm in NS 250ml 1 GM/250 ML BAG IVPB SCH ×2 (12:18→23:23)
[2017-06-16] MEDS: Sodium Chloride 0.9% 1,000 ML IV SCH (12:20)
--- NOTE | 2017-06-16 15:23 | PN ---
DATE: 06/16/2017 Ms. Joi Evans's hospital visit on the medical floor. For Dr. Stevenson. SUBJECTIVE: The patient is a 77-year-old female seen sitting up in bed, being fed by her after her diet was advanced to puree. She appears more calm this visit with her daughter, visiting from [place], also sitting at the bedside. The patient is now being treated for pneumonia as per CAT scan done approximately 3 days prior with her temperatures also better with her acute sy now resolved after medications adjusted as per neurology. No further seizure activity reported as patient is on Keppra. The patient does report knee discomfort possibly positional as she was not able to be placed out of bed to the chair today safely with the patient needing to use a bedpan. PHYSICAL EXAMINATION VITAL SIGNS: Temperature 98.6, pulse 109, respirations 22, blood pressure 149/90, and pulse ox 97%. HEENT: Unremarkable. Tongue is moist and midline. NECK: Supple. HEART: Tachy rate. Regular rhythm. LUNGS: Faint rales through right base. ABDOMEN: Obese, soft, and nontender. EXTREMITIES: No edema. SKIN: Warm and dry. NEUROLOGIC: Awake, alert, and calm this visit. LABORATORY DATA: The patient's labs were not done today. They will be repeated in the morning. The yesterday's labs were within normal range except for potassium 3.2, which was replenished. ASSESSMENT: The assessment for this patient is pneumonia on the right side, acute mental status change with delirium now improved, questionable seizure disorder, metastatic small cell carcinoma with T4 vertebral body involvement, lymphadenopathy, dementia, failure to thrive, deconditioning, and knee pain. PLAN: The plan for this patient, after conversation with Dr. Stevenson are to continue her present medical regimen with her medications to be adjusted as per neurology with her antibiotics, to continue for her infections from pneumonia as per Dr. Neville, with analgesics for her pain as indicated. We will monitor clinically and with labs. Prognosis for this patient is guarded. Her diet was advanced as per her primary doctor. We will check her labs in the a.m. Erin Wiggins MD [facility] # [id number]
--- NOTE | 2017-06-16 15:42 | PN ---
DATE: 06/16/2017 SUBJECTIVE: Patient continues to improve from her disorientation and confusion state. She is her tolerating diet well. She was able to sit up in the chair for 4 hours yesterday. She is tolerated her diet. She is less than confused and disoriented. She is sleeping well and no further seizure activity. PHYSICAL EXAMINATION: VITAL SIGNS: Temperature is 100.7. LABORATORY DATA: White count is 6.2, hemoglobin is 10.8. IMPRESSION: Patient does have history of intraparietal small cell carcinoma with metastasis. PLAN: Plan is to continue IV antibiotics, physical therapy, occupational therapy, and hydration. Darinel Wallace MD
--- NOTE | 2017-06-16 16:08 | PN ---
DATE: 06/16/2017 SUBJECTIVE: The patient was seen early this morning in room #561, bed #1. The patient still has intermittent low-grade fevers and mental status is poor. PHYSICAL EXAMINATION: VITAL SIGNS: On exam, temperature is 98, T-max was 101 late last night and blood pressure is 140/90, respiratory rate is 16. HEENT: Unremarkable. NECK: Supple. LUNGS: Have decreased breath sounds. HEART: Normal S1 and S2. ABDOMEN: Soft and nontender. LABORATORY DATA: Reveals a white count of 6.2, hemoglobin of 10, platelets of 276. Chemistries are noted. Urinalysis is noted, there are too numerous to count rbc's. Microbiology reveals the blood cultures are negative, urine cultures are negative and a CAT scan of the chest is noted. Dr. Wallace's note is reviewed. Dr. Jonatan Wiggins's note is reviewed. REVIEW OF ORDERS: Reveals the patient to be on meropenem and vancomycin. ASSESSMENT AND PLAN: This is a 77-year-old female, in very poor condition, lethargic, was seen early this morning with sepsis and systemic inflammatory response syndrome, metastatic uterine cancer, hypertension, osteoarthritis, dementia, obsessive compulsive disorder, Port-A-Cath in place and vancomycin and meropenem day #7 with intermittent fevers. A CAT scan shows right perihilar basilar consolidation with air bronchograms consistent with pneumonia. Case was discussed with Dr. Wallace at length. Thony Neville MD
[2017-06-17] MEDS: Albuterol-Ipratrop 3 mg / 0.5 (3 ml) UD IH SCH ×4 (02:30→20:36)
[2017-06-17] MEDS: Thiamine 100 MG in Sodium Chloride 0.9% 50 ML IV SCH ×3 (03:15→18:47)
[2017-06-17 07:15] LABS: BASO # 0.02 K/mm3 (0.0-2.0); BASO % 0.3 % (0.0-3.0); EOS # 0.3 (0.0-0.7); EOS % 3.9 % (1.5-5.0); GRAN # 5.5 (1.4-6.5); GRAN % 71.2 % (50.0-68.0); HEMATOCRIT 33.8 % (36.0-48.0); LYMPH # 1.4 (1.2-3.4); LYMPH % 18.5 % (22.0-35.0); MEAN CELL VOLUME 93.6 fl (80.0-105.0); MEAN CORPUSCULAR HEMOGLOBIN 29.6 pg (25.0-35.0); MEAN CORPUSCULAR HGB CONC 31.7 g/dl (31.0-37.0); MEAN PLATELET VOLUME 8.3 fl (7.0-11.0); MONO # 0.5 (0.1-0.6); MONO % 6.1 % (1.0-6.0); WHITE BLOOD COUNT 7.7 10^3/ul (4.5-11.0)
[2017-06-17 07:30] LABS: ALKALINE PHOSPHATASE 60 U/L (38-126); ALT/SGPT 36 U/L (7-56); AST/SGOT 41 U/L (14-36); BILIRUBIN,TOTAL 0.5 mg/dL (0.2-1.3); BLOOD UREA NITROGEN 11 mg/dL (7-21); CARBON DIOXIDE 32 mmol/L (21-33); CHLORIDE 100 mmol/L (98-107); GFR AFRICAN-AMERICAN > 60; GLUCOSE,RANDOM 96 mg/dL (70-110); SODIUM 138 mmol/L (132-148); TOTAL PROTEIN 6.3 g/dL (5.8-8.3)
[2017-06-17] MEDS: Meropenem 1g/NS 100mL IVPB 1 GM/100 ML PIGGYBACK IVPB SCH (07:44)
[2017-06-17] MEDS: levETIRAcetam 500mg IVPB 500 MG/100 ML BAG IVPB SCH ×2 (09:41→22:19)
[2017-06-17] MEDS: Potassium Chloride 20 mEq ER Tab PO SCH (09:41)
[2017-06-17] MEDS ORDERED: Thiamine 100 mg/ml Inj ONE (09:44)
--- NOTE | 2017-06-17 12:56 | PN ---
DATE: 06/17/2017 SUBJECTIVE: The patient is a 77-year-old female with chronic elevation of temperature; today it is 99.5. She is on IV antibiotics. Her vital signs are stable. Chest is clear to auscultation and percussion. She does have pneumonia on CAT scan. She is more awake, alert, and oriented x3. PHYSICAL EXAMINATION: VITAL SIGNS: Blood pressure is 144/88. CHEST: Clear to auscultation and percussion. HEART: Regular sinus rhythm . LABORATORY DATA: White count is 97.7. ASSESSMENT AND PLAN: The patient also has recent history of seizure disorder and metastatic small cell carcinoma of the intraabdominal cavity. Darinel Wallace MD
--- NOTE | 2017-06-17 14:00 | PN ---
DATE: SUBJECTIVE: The patient is in bed, in no acute distress, was seen earlier. The patient's daughter and are at the bedside. She appears to be essentially unremarkable. PHYSICAL EXAMINATION: VITAL SIGNS: Temperature is 99, blood pressure is 140/80, respiratory rate of 20, heart rate of 109. HEENT: Unremarkable. NECK: Supple. LUNGS: Decreased breath sounds. HEART: Normal S1 and S2. ABDOMEN: Soft. LABORATORY DATA: Reveals a white count is down to 7.7, hemoglobin of 10. Chemistry reveals BUN of 11, creatinine of 0.5 and procalcitonin is normal at 0.19 and 2 negative procalcitonin. Urinalysis is noted. Microbiology reveals a blood cultures are negative. Urine cultures are negative. Repeat blood cultures are negative. The patient did have a CAT scan of the chest, which showed infiltrate. Dr. Wallace's note from yesterday is reviewed. ASSESSMENT AND PLAN: A 77-year-old female, who was admitted with sepsis and systemic inflammatory response syndrome with metastatic uterine cancer, hypertension, osteoarthritis, dementia, obsessive compulsive disorder, has a Port-A-Cath and has received 7 days of vancomycin and meropenem with negative cultures and although the CAT scan does show consolidation by air bronchograms consistent with pneumonia. Today is day #8. The patient did have a fever yesterday of 100.8. We will discontinue the vancomycin and meropenem. Follow the patient off of antibiotics. Had 2 procalcitonin, which have been negative. Thony Neville MD
--- NOTE | 2017-06-17 14:08 | PN ---
DATE: 06/17/2017 [facility]'s hospital visit on the medical floor. For Dr. Stevenson. SUBJECTIVE: The patient is a 77-year-old female seen sitting up in bed with her family at the bedside with the patient being emotionally labile with the patient crying and then being distracted and appearing appropriate, listening to conversation. With this, she is being treated for pneumonia, probable aspiration pneumonia as per Dr. Neville with chemotherapy for her underlying neoplastic changes on hold in the interim. She has not been out of bed with weakness of her legs with physiotherapy strongly recommended at this point. She is also on pureed diet, which is tolerated well. The patient needs to be in a 90-degree position for feeding to prevent aspiration, which was suspected. The daughter from [place] is leaving today with the patient's at the bedside. PHYSICAL EXAMINATION: VITAL SIGNS: Temperature 99.5, pulse 109, respirations 18, blood pressure 144/88, and pulse ox 97%. HEENT: Unremarkable. NECK: Supple. HEART: Tachy rate and regular rhythm. LUNGS: Clear except for faint rhonchi at the right base. ABDOMEN: Obese and soft. EXTREMITIES: Decreased strength. No edema of the lower extremities. NEUROLOGIC: Awake and alert, but confused. LABORATORY DATA: The patient's labs were done today. White blood cell count is 7.7, hemoglobin 10.7, hematocrit 33.8, and platelet count of 296,000 with a chem metabolic panel showing an AST of 41 with an otherwise normal chem metabolic panel. 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 PLAN: The plan for this patient after conversation with Dr. Stevenson are to encourage aggressive physiotherapy with the patient to be out of bed as possible with assist. The patient will be monitored clinically with consideration for transfer for reconditioning as indicated. With restart of any psychotropic medication as per neurology consultants. Prognosis for this patient is guarded. Jonatan Wiggins MD [facility] # [id number]
[2017-06-17] MEDS: Sodium Chloride 0.9% 1,000 ML IV SCH ×2 (18:12→18:13)
[2017-06-18] MEDS: Albuterol-Ipratrop 3 mg / 0.5 (3 ml) UD IH SCH ×4 (01:00→19:43)
[2017-06-18] MEDS: Thiamine 100 MG in Sodium Chloride 0.9% 50 ML IV SCH ×3 (03:50→20:17)
--- NOTE | 2017-06-18 09:04 | PN ---
DATE: 06/15/2017 SUBJECTIVE: The patient is in bed, was seen very early this morning. Overall, she is doing poorly. She has been afebrile now. PHYSICAL EXAMINATION VITAL SIGNS: Temperature is 99, blood pressure is 140/90, respiratory rate of 18, heart rate of 107. HEENT: Unremarkable. NECK: Supple. LUNGS: Have decreased breath sounds. HEART: Normal S1 and S2. ABDOMEN: Soft and nontender. LABORATORY DATA: Reveals a white of 6.2, hemoglobin of 10, platelets of 276. Chemistries reveals a BUN of 10, creatinine of 0.5, procalcitonin is 0.9. Yesterday, patient had a CAT scan finding. Yesterday's CAT scan shows consolidation around the right giuseppe with air bronchograms and some consolidation of right lung base, small effusion. ASSESSMENT AND PLAN: Review of orders reveal the patient should be on meropenem and vancomycin. Overall, prognosis is quite poor. Suspect the patient is having intermittent aspiration pneumonia. Thony Neville MD
[2017-06-18] MEDS: levETIRAcetam 500mg IVPB 500 MG/100 ML BAG IVPB SCH (10:30)
[2017-06-18] MEDS: Sodium Chloride 0.9% 1,000 ML IV SCH (10:32)
--- NOTE | 2017-06-18 14:15 | CP.PCM.PN ---
Subjective - Date & Time of Evaluation Date of Evaluation: 06/18/17 Time of Evaluation: 10:45 - Subjective Subjective: Patient is more awake but is very emotionally labile. Still having low grade fevers but patient is not in distress. Still confused. Objective - Vital Signs/Intake and Output Vital Signs (last 24 hours): Temp Pulse Resp BP Pulse Ox 99.3 F 106 H 24 158/100 H 94 L 06/18/17 07:30 06/18/17 07:30 06/18/17 07:30 06/18/17 07:30 06/18/17 07:30 Intake and Output: 06/18/17 06/18/17 06:59 18:59 Intake Total 600 Balance 600 - Medications Medications: Current Medications Acetaminophen (Tylenol 325mg Tab) 650 mg PO Q6H PRN PRN Reason: Temperature Last Admin: 06/18/17 01:17 Dose: 650 mg Albuterol/Ipratropium (Duoneb 3 Mg/0.5 Mg (3 Ml) Ud) 3 ml IH [id number] [facility] Last Admin: 06/18/17 07:19 Dose: 3 ml Alprazolam (Xanax) 0.25 mg PO Q8 PRN; Protocol PRN Reason: Anxiety Stop: 06/20/17 22:01 Last Admin: 06/13/17 16:47 Dose: 0.25 mg Amlodipine Besylate (Norvasc) 5 mg PO DAILY [facility] Last Admin: 06/17/17 09:41 Dose: 5 mg Clonidine HCl (Catapres) 0.2 mg PO Q6 PRN PRN Reason: Systolic Blood Pressure Last Admin: 06/13/17 15:09 Dose: 0.2 mg Sodium Chloride (Sodium Chloride 0.9%) 1,000 mls @ 75 mls/hr IV .[id number] [facility] Last Admin: 06/17/17 18:13 Dose: 75 mls/hr Levetiracetam (Keppra 500mg Ivpb) 500 mg in 100 mls @ 400 mls/hr IVPB Q12 [facility] Last Admin: 06/17/17 22:19 Dose: 400 mls/hr Thiamine HCl 100 mg/ Sodium (Chloride) 51 mls @ 102 mls/hr IV Q8H [facility] Last Admin: 06/18/17 03:50 Dose: 102 mls/hr Lorazepam (Ativan) 1 mg IVP Q6H PRN; Protocol PRN Reason: Anxiety Last Admin: 06/16/17 09:16 Dose: 1 mg Memantine Hcl/Donepezil Hcl [ Namzaric Titration Pack] (Home) 1 tab PO HS [facility] Last Admin: 06/12/17 21:07 Dose: Not Given Quetiapine Fumarate (Seroquel) 25 mg PO DAILY [facility] PRN Reason: Protocol Last Admin: 06/17/17 09:42 Dose: Not Given - Labs Labs: 06/17/17 07:02 06/17/17 07:02 PT 11.7 Seconds (9.9-11.8) 06/04/17 12:28 INR 1.08 (0.93-1.08) 06/04/17 12:28 APTT 26.7 Seconds (23.7-30.8) 06/04/17 12:28 - Constitutional Appears: Non-toxic, No Acute Distress - Head Exam Head Exam: NORMAL INSPECTION - Neck Exam Neck Exam: absent: Meningismus - Respiratory Exam Respiratory Exam: Decreased Breath Sounds - Cardiovascular Exam Cardiovascular Exam: +S1, +S2 - GI/Abdominal Exam GI & Abdominal Exam: Soft. absent: Tenderness Assessment and Plan - Assessment and Plan (Free Text) Plan: Assessment Systemic Inflammatory Response Syndrome, with fever, S/P sepsis due to right sided pneumonia S/P treatment with 7 days of antibiotics; continued fever may be due to metastatic uterine cancer, but will repeat septic work up Acute encephalopathy, R/O paraneoplastic syndrome, R/P anti-NMDA receptor encephalitis R/O toxic-metabolic encephalopathy, slowly improving HTN osteoarthritis dementia obsessive-compulsive disorder S/P right sided port-a-cath placement Plan S/P 7 days of Vancomycin and Merrem; reviewed CT scan of the chest from 2016 which showed the right basilar infiltrates will repeat blood, urine cx and PCT today Neuro evaluating for anti-NMDA receptor encephalitis will continue to monitor clinically overall prognosis is poor
[2017-06-18 16:03] LABS: PH,URINE 6.5 (4.7-8.0); URINE BILIRUBIN NEGATIVE (NEGATIVE); URINE BLOOD TRACE-INTACT (NEGATIVE); URINE GLUCOSE (UA) NEGATIVE (NEGATIVE); URINE KETONE NEGATIVE (NEGATIVE); URINE LEUKOCYTE ESTERASE NEGATIVE Leu/uL (NEGATIVE); URINE PROTEIN NEGATIVE mg/dL (<30 mg/dL); URINE UROBILINOGEN 0.2 E.U./dL (<1 E.U./dL)
[2017-06-18 16:05] LABS: URINE APPEARANCE SLIGHT-CLOUDY (CLEAR); URINE COLOR YELLOW (YELLOW)
[2017-06-18 16:56] LABS: URINE WBC 0 - 2 /hpf (0-6)
[2017-06-18] MEDS: levETIRAcetam 500 mg/5ml UD cups PO SCH (18:13)
--- NOTE | 2017-06-18 19:32 | PN ---
SUBJECTIVE: A 77-year-old white female with metastatic intraabdominal small cell carcinoma, dementia, seizure disorder, change in mental status, confusion, sepsis. The patient is being treated for IV antibiotics. She is afebrile today. She is awake, alert, tolerating her liquid diet. She is somewhat perseverating and mildly disoriented, able to get up and sit in a chair with assistance. PHYSICAL EXAMINATION VITAL SIGNS: Stable. CHEST: Clear to auscultation recent history of pneumonia which is improving. PLAN: The plan is to switch to p.o. Keppra and to continue IV antibiotics for her pneumonia and continue physical therapy and occupational therapy. Darinel Wallace MD
[2017-06-19] MEDS: Albuterol-Ipratrop 3 mg / 0.5 (3 ml) UD IH SCH ×4 (01:17→20:07)
[2017-06-19] MEDS: Thiamine 100 MG in Sodium Chloride 0.9% 50 ML IV SCH ×3 (03:17→21:11)
[2017-06-19] MEDS ORDERED: Cefepime 1gm in NS 100ml 1 GM/100 ML BAG IVPB ONE (05:52)
[2017-06-19 07:13] LABS: BASO # 0.05 K/mm3 (0.0-2.0); BASO % 0.8 % (0.0-3.0); EOS # 0.2 (0.0-0.7); EOS % 3.2 % (1.5-5.0); GRAN # 4.04 (1.4-6.5); HEMATOCRIT 34.3 % (36.0-48.0); LYMPH # 1.9 (1.2-3.4); LYMPH % 28.2 % (22.0-35.0); MEAN CELL VOLUME 93.5 fl (80.0-105.0); MEAN CORPUSCULAR HEMOGLOBIN 30.5 pg (25.0-35.0); MEAN CORPUSCULAR HGB CONC 32.7 g/dl (31.0-37.0); MEAN PLATELET VOLUME 8.4 fl (7.0-11.0); MONO # 0.5 (0.1-0.6); MONO % 6.8 % (1.0-6.0); WHITE BLOOD COUNT 6.6 10^3/ul (4.5-11.0)
--- NOTE | 2017-06-19 09:07 | RAD ---
HISTORY: r/o pneumonia COMPARISON: 06/13/2017 FINDINGS: LUNGS: There is elevation of the right hemidiaphragm. There is a minimal infiltrate at the right lung base which obscures the diaphragmatic border. The left lung is clear PLEURA: No significant pleural effusion identified, no pneumothorax apparent. CARDIOVASCULAR: Normal. OSSEOUS STRUCTURES: No significant abnormalities. VISUALIZED UPPER ABDOMEN: Normal. OTHER FINDINGS: None. IMPRESSION: There is elevation of the right hemidiaphragm. There is a minimal infiltrate at the right lung base which obscures the diaphragmatic border. The left lung is clear
[2017-06-19] MEDS: levETIRAcetam 500 mg/5ml UD cups PO SCH ×2 (10:56→17:54)
[2017-06-19] MEDS ORDERED: Lidocaine 2% Inj (20ml) ONE (12:02)
--- NOTE | 2017-06-19 14:35 | VASCULAR ---
PROCEDURE: Removal of tunneled right internal jugular venous access port. CLINICAL HISTORY: Small-cell carcinoma. Sepsis. Remove possible infected port. PHYSICIAN(S): Gregg Lockwood M.D. TECHNIQUE: The relative risks and indications of the procedure were explained to the patient's and consent obtained. The patient was placed supine on the arteriogram table and the right neck and chest prepped and draped usual sterile fashion. Conscious sedation and monitoring were provided throughout the procedure by a nurse. 1% Xylocaine was used to anesthetize the skin and soft tissues at the port. A 4 cm incision was made. The port was bluntly dissected and removed. The catheter was removed under fluoroscopic guidance. The catheter tip was sent for culture. No retained catheter fragments were seen. The pocket was lavaged with normal saline. The pocket was closed in 2 layers. The patient tolerated the procedure well. IMPRESSION: 1. Removal of tunneled right internal jugular venous access port. The catheter tip was sent for culture
[2017-06-19 16:22] LABS: PH,URINE 7.5 (4.7-8.0); URINE BILIRUBIN NEGATIVE (NEGATIVE); URINE BLOOD NEGATIVE (NEGATIVE); URINE GLUCOSE (UA) NEGATIVE (NEGATIVE); URINE KETONE NEGATIVE (NEGATIVE); URINE LEUKOCYTE ESTERASE NEGATIVE Leu/uL (NEGATIVE); URINE PROTEIN NEGATIVE mg/dL (<30 mg/dL); URINE UROBILINOGEN 0.2 E.U./dL (<1 E.U./dL)
[2017-06-19 16:25] LABS: URINE APPEARANCE CLEAR (CLEAR); URINE COLOR YELLOW (YELLOW)
--- NOTE | 2017-06-19 18:11 | CP.PCM.PN ---
Subjective - Date & Time of Evaluation Date of Evaluation: 06/19/17 Time of Evaluation: 11:40 - Subjective Subjective: For removal of the right anterior chest wall port-a-cath. Still having fevers but patient is not in distress. Still emotionally labile. Objective - Vital Signs/Intake and Output Vital Signs (last 24 hours): Temp Pulse Resp BP Pulse Ox 101.1 F H 109 H 22 145/96 H 96 06/19/17 07:00 06/19/17 07:00 06/19/17 07:00 06/19/17 07:00 06/19/17 07:00 Intake and Output: 06/19/17 06/19/17 06:59 18:59 Intake Total 600 Balance 600 - Medications Medications: Current Medications Acetaminophen (Tylenol 325mg Tab) 650 mg PO Q6H PRN PRN Reason: Temperature Last Admin: 06/18/17 01:17 Dose: 650 mg Albuterol/Ipratropium (Duoneb 3 Mg/0.5 Mg (3 Ml) Ud) 3 ml IH [id number] [facility] Last Admin: 06/19/17 07:09 Dose: 3 ml Amlodipine Besylate (Norvasc) 5 mg PO DAILY [facility] Last Admin: 06/18/17 10:30 Dose: 5 mg Clonidine HCl (Catapres) 0.2 mg PO Q6 PRN PRN Reason: Systolic Blood Pressure Last Admin: 06/13/17 15:09 Dose: 0.2 mg Thiamine HCl 100 mg/ Sodium (Chloride) 51 mls @ 102 mls/hr IV Q8H [facility] Last Admin: 06/19/17 03:17 Dose: 102 mls/hr Levetiracetam (Keppra) 500 mg PO BID [facility] Last Admin: 06/18/17 18:13 Dose: 500 mg Lorazepam (Ativan) 0.5 mg IVP Q6H PRN; Protocol PRN Reason: Anxiety Last Admin: 06/18/17 18:47 Dose: 0.5 mg Memantine Hcl/Donepezil Hcl [ Namzaric Titration Pack] (Home) 1 tab PO HS [facility] Last Admin: 06/12/17 21:07 Dose: Not Given Quetiapine Fumarate (Seroquel) 25 mg PO DAILY [facility] PRN Reason: Protocol Last Admin: 06/18/17 10:31 Dose: 25 mg - Labs Labs: 06/19/17 07:00 06/17/17 07:02 PT 11.7 Seconds (9.9-11.8) 06/04/17 12:28 INR 1.08 (0.93-1.08) 06/04/17 12:28 APTT 26.7 Seconds (23.7-30.8) 06/04/17 12:28 - Constitutional Appears: Chronically Ill - Head Exam Head Exam: NORMAL INSPECTION - Neck Exam Neck Exam: absent: Meningismus - Respiratory Exam Respiratory Exam: Decreased Breath Sounds Additional comments: right anterior chest wall port-a-cath site intact - Cardiovascular Exam Cardiovascular Exam: +S1, +S2 - GI/Abdominal Exam GI & Abdominal Exam: Soft. absent: Tenderness Assessment and Plan - Assessment and Plan (Free Text) Plan: Assessment Systemic Inflammatory Response Syndrome, with fever, S/P sepsis due to right sided pneumonia S/P treatment with 7 days of antibiotics; continued fever may be due to metastatic uterine cancer, so far repeat septic work up (from 06/18/2017 ) is negative - for removal of the right anterior chest wall port-a-cath R/O line-related infection Acute encephalopathy, R/O paraneoplastic syndrome, R/O anti-NMDA receptor encephalitis R/O toxic-metabolic encephalopathy, slowly improving HTN osteoarthritis dementia obsessive-compulsive disorder S/P right sided port-a-cath placement Plan S/P 7 days of Vancomycin and Merrem; reviewed CT scan of the chest from 2016 which showed the right basilar infiltrates will repeat blood cx today and port has also been cultured; patient has been given a dose of IV cefepime and will also give a dose of IV daptomycin Neuro evaluating for anti-NMDA receptor encephalitis will continue to monitor clinically overall prognosis is poor
[2017-06-19] MEDS ORDERED: DAPTOmycin 500 mg Inj (Cubicin) IV ONE (18:15)
[2017-06-20] MEDS: Sodium Chloride 0.45% 1,000 ML IV SCH ×3 (00:36→21:41)
--- NOTE | 2017-06-20 02:13 | PN ---
DATE: 06/19/2017 SUBJECTIVE: The patient is seen with her , a 77-year-old white female, recent episodes of fevers on and off. The patient is on IV antibiotics for possible line sepsis. She has a port. The patient had spiked fever last night to 102, most recent was 101.1, up to 101.4 last night. The patient has not had any cultures that has been positive. There is possible fever coming from paraneoplastic fever or from foreign body. Her port possibly being infected without any bacteremia. Plan is to take out the port due to the fact that the patient most likely will not have further chemotherapy due to her deteriorating mental status and her stage IV intraabdominal small cell carcinoma status post one episode of chemotherapy without good results as far as the change in her mental status. The patient also recently had seizure worsening neurological deterioration and possible DNR status pending on the family's decision. The patient is still confused and disoriented, not following commands well, crying intermittently, difficult to impossible to work with this as far as physical therapy because the patient does not comprehend and does not follow commands, able to sit in a chair with extreme amount of help, afebrile this morning. PLAN: To stop IV antibiotics, take out the port, reassess her condition, reassess her state of possible sepsis versus paraneoplastic fever. Continue sun therapy. Discussed plans to transfer the patient to rehab when appropriate, when stable. We will discuss the case further with Dr. Stevenson. Recent history of pneumonia is cleared. Vital signs stable today. Plan will be as follows. Darinel Wallace MD
--- NOTE | 2017-06-20 02:19 | PN ---
DATE: 06/19/2017 [facility]'s hospital visit on the medical floor. For Dr. Stevenson. SUBJECTIVE: The patient is a 77-year-old female seen lying awake in bed. Now, less responsive to questioning, known to suffer from dementia, seizure disorder, confusion with delirium early in her stay from which she improved. She also has recently treated pneumonia, possibly aspiration pneumonia, for which purees were recommended for her with physiotherapy to have begun. She also had her port removed earlier today. The patient is known to be emotionally labile with crying episodes. At present, she appears nonverbal. OBJECTIVE: VITAL SIGNS: Temperature 97.3, pulse 98, respirations 20, blood pressure 146/97 and pulse oximetry 97%. HEENT: Unremarkable. NECK: Supple. HEART: Tachy rate, regular rhythm. LUNGS: Decreased breath sounds. ABDOMEN: Soft and nontender. EXTREMITIES: No edema. SKIN: Warm and dry. NEUROLOGIC: Nonverbal. Lethargic. LABORATORY DATA: The patient's labs were done. White blood cell count 6.6, hemoglobin 11.2, hematocrit 34.3 and platelet count of 344,000 with a chem metabolic panel showing a procalcitonin of less than 0.5 with a urinalysis negative for blood sugar protein. The patient did have a chest x-ray done earlier today, it was read as elevation of the right hemidiaphragm, minimal infiltrate at the right lung which obscured the diaphragmatic border, left lung is clear. ASSESSMENT: Mental status change, the patient now nonverbal, recent onset of seizure disorder, dementia, pneumonia, questionable aspiration of metastatic small cell carcinoma of the T4 vertebral body, lymphadenopathy, failure to thrive, deconditioning, weakness, systemic inflammatory response syndrome, degenerative joint disease and acute encephalopathy. PLAN: The plan for this patient after conversation with Dr. Stevenson is to have her port taken out which was done earlier today. We will continue present medical regimen. After conversation with Dr. Dunlap, neurology with the prognosis for this patient guarded. We will monitor clinically. Deconditioning with physiotherapy. Jonatan Wiggins MD [facility] # [id number]
[2017-06-20] MEDS: Albuterol-Ipratrop 3 mg / 0.5 (3 ml) UD IH SCH ×4 (03:09→20:20)
[2017-06-20] MEDS: Thiamine 100 MG in Sodium Chloride 0.9% 50 ML IV SCH ×3 (04:11→19:55)
[2017-06-20] MEDS ORDERED: Piperacillin/Tazobact 3.375 gm 100 ML IVPB STA (05:08)
--- NOTE | 2017-06-20 05:20 | CP.PCM.PN ---
Subjective - Date & Time of Evaluation Date of Evaluation: 06/20/17 Time of Evaluation: 05:00 - Subjective Subjective: pt with metastatic uterine cancer has been having fever of 103 . pt had wbc count of 6 procalcitonine is negative . pt is on cubicine . Objective - Vital Signs/Intake and Output Vital Signs (last 24 hours): Temp Pulse Resp BP Pulse Ox 100.7 F H 111 H 22 147/94 H 97 06/20/17 00:10 06/20/17 00:10 06/20/17 00:10 06/20/17 00:10 06/20/17 00:10 Intake and Output: 06/19/17 06/20/17 18:59 06:59 Intake Total 60 0 Balance 60 0 - Medications Medications: Current Medications Acetaminophen (Tylenol 325mg Tab) 650 mg PO Q6H PRN PRN Reason: Temperature Last Admin: 06/18/17 01:17 Dose: 650 mg Acetaminophen (Tylenol 650 Mg Supp) 650 mg RC Q6H PRN PRN Reason: Fever >100.4 F Last Admin: 06/20/17 01:15 Dose: 650 mg Albuterol/Ipratropium (Duoneb 3 Mg/0.5 Mg (3 Ml) Ud) 3 ml IH [id number] [facility] Last Admin: 06/20/17 03:09 Dose: 3 ml Amlodipine Besylate (Norvasc) 5 mg PO DAILY [facility] Last Admin: 06/19/17 10:56 Dose: 5 mg Clonidine HCl (Catapres) 0.2 mg PO Q6 PRN PRN Reason: Systolic Blood Pressure Last Admin: 06/13/17 15:09 Dose: 0.2 mg Thiamine HCl 100 mg/ Sodium (Chloride) 51 mls @ 102 mls/hr IV Q8H [facility] Last Admin: 06/20/17 04:11 Dose: 102 mls/hr Sodium Chloride (Sodium Chloride 0.45%) 1,000 mls @ 80 mls/hr IV .[id number] [facility] Stop: 06/20/17 06:00 Last Admin: 06/20/17 00:36 Dose: 80 mls/hr Piperacillin Sod/Tazobactam Sod (Zosyn 3.375 In Ns 100ml) 100 mls @ 200 mls/hr IVPB [facility] PRN Reason: Protocol Stop: 06/20/17 05:37 Levetiracetam (Keppra) 500 mg PO BID [facility] Last Admin: 06/19/17 17:54 Dose: 500 mg Lorazepam (Ativan) 0.5 mg IVP Q6H PRN; Protocol PRN Reason: Anxiety Last Admin: 06/18/17 18:47 Dose: 0.5 mg Memantine Hcl/Donepezil Hcl [ Namzaric Titration Pack] (Home) 1 tab PO HS [facility] Last Admin: 06/12/17 21:07 Dose: Not Given Quetiapine Fumarate (Seroquel) 25 mg PO DAILY [facility] PRN Reason: Protocol Last Admin: 06/19/17 11:07 Dose: 25 mg - Labs Labs: 06/19/17 07:00 06/17/17 07:02 PT 11.7 Seconds (9.9-11.8) 06/04/17 12:28 INR 1.08 (0.93-1.08) 06/04/17 12:28 APTT 26.7 Seconds (23.7-30.8) 06/04/17 12:28 - Constitutional Appears: Other (obtunded) - ENT Exam ENT Exam: Mucous Membranes Moist - Neck Exam Neck Exam: Normal Inspection - Respiratory Exam Respiratory Exam: NORMAL BREATHING PATTERN - Cardiovascular Exam Cardiovascular Exam: Tachycardia - GI/Abdominal Exam GI & Abdominal Exam: Soft - Rectal Exam Rectal Exam: Deferred - Extremities Exam Extremities Exam: Normal Inspection - Neurological Exam Additional comments: pt is obtunded. - Skin Skin Exam: Normal Color Assessment and Plan - Assessment and Plan (Free Text) Assessment: high fever / metastatic uterine cancer . Plan: pt has been see cultured before . cooling blanket . called dr padilla for additional antibiotics.
[2017-06-20 07:20] VITALS: RESP 20
[2017-06-20] MEDS ORDERED: levETIRAcetam 1,000 MG in Sodium Chloride 0.9% 100 ML IV ONE (07:55)
--- NOTE | 2017-06-20 08:18 | CP.PCM.PCO ---
Addendum Addendum: 06/20/17 08:10 Misael Negron D.O. PGY-2, D.O. On Duty (D.O.O.D.) Received page from RN that patient had just had a seizure. Patient was seen and examined at bedside. Reviewed case with nurse, 77 year old female with fevers and uterine cancer, seizures, recently had port removed for possible line sepsis, seen by house doctor last night, started on zosyn. Per nurse the patient was reportedly pocketing her keppra which would mean she has not received it for about 4 days. BP 142/79 HR 90 RR 16 O2 Sat 98% on R/A Gen: Obtunded, breathing comfortably, appears asleep HEENT: NC, AT, PERRL Heart: RRR, S1, S2, no M/R/G Lungs: CTAB Abd: soft, NT, ND Neuro: postictal, withdraws to sternal rub and deep nail beed pressure in all 4 extremities, no eye opening, no verbal Placed call for Dr. Wallace. Patient was given 0.5mg of ativan IVP by nursing staff, ordered another 1.5mg for a total of 2mg, also loaded patient with 1g of Keppra IVP. Ordered STAT prolactin level to confirm seizure. Ordered oral sweeps to make sure patient takes her medications. Dr. Wallace presented at bedside shortly thereafter. Discussed the case and actions taken with him at bedside. Patient to be re-evaluated at 30 minutes, and if not improved may speak with ICU for evaluation. At this time continues to be post-ictal. Dr. Negron. Cami
[2017-06-20 08:55] LABS: ALB/GLOB RATIO 1.1 (1.1-1.8); ALKALINE PHOSPHATASE 78 U/L (38-126); ALT/SGPT 20 U/L (7-56); AST/SGOT 89 U/L (14-36); BLOOD UREA NITROGEN 14 mg/dL (7-21); CALCIUM 9.4 mg/dL (8.4-10.5); CARBON DIOXIDE 28 mmol/L (21-33); CHLORIDE 95 mmol/L (98-107); GFR AFRICAN-AMERICAN > 60; GLUCOSE,RANDOM 92 mg/dL (70-110); POTASSIUM 3.8 mmol/L (3.6-5.0); SODIUM 133 mmol/L (132-148); TOTAL PROTEIN 7.9 g/dL (5.8-8.3)
[2017-06-20 08:57] LABS: BASO # 0.04 K/mm3 (0.0-2.0); BASO % 0.5 % (0.0-3.0); EOS # 0.1 (0.0-0.7); EOS % 1.5 % (1.5-5.0); GRAN # 5.74 (1.4-6.5); GRAN % 66.2 % (50.0-68.0); HEMATOCRIT 40.2 % (36.0-48.0); LYMPH % 23.1 % (22.0-35.0); MEAN CELL VOLUME 92.6 fl (80.0-105.0); MEAN CORPUSCULAR HEMOGLOBIN 31.8 pg (25.0-35.0); MEAN CORPUSCULAR HGB CONC 34.3 g/dl (31.0-37.0); MEAN PLATELET VOLUME 8.9 fl (7.0-11.0); MONO # 0.8 (0.1-0.6); MONO % 8.7 % (1.0-6.0); RED CELL DISTRIBUTION WIDTH 14.8 % (11.5-14.5); WHITE BLOOD COUNT 8.7 10^3/ul (4.5-11.0)
[2017-06-20] MEDS: levETIRAcetam 500mg IVPB 500 MG/100 ML BAG IVPB SCH ×2 (10:45→21:41)
[2017-06-20] MEDS: Vancomycin 500mg in NS 500 MG/100 ML BAG IVPB SCH (10:46)
--- NOTE | 2017-06-20 14:11 | PN ---
SUBJECTIVE: A 77-year-old white female with metastatic small cell carcinoma of the intraabdominal cavity, seizure disorder, dementia, recent change in mental status and recent pneumonia. The patient the day prior had her port removed. Did spike a temperature last night and this morning had a full-blown tonic-clonic seizure. Feeling is the patient possibly was pocketing her medication and not swallowing her Keppra. The patient was seen by the house physician and reloaded the Keppra. She was in a postictal state when I saw her with focused conversation with the . Recent MRI did not show any new activity. The patient had repeat laboratory data that showed normal white count of 8.7 and normal hemoglobin of 13.8. Her electrolytes were normal. There is essentially nothing important in her blood work. The patient will be followed. Her microbiology so far has been negative with no growth. We are waiting for cultures of her Port-A-Cath tip. Vital signs at this point are stable. She still has a low-grade fever of 100.5. She is restarted on Zosyn and on vancomycin. We are waiting for re-consultation with ID. PHYSICAL EXAMINATION: GENERAL: Shows a well developed, obese white female in a postictal state, not responding to pain or verbal commands. VITAL SIGNS: Stable. HEENT: Pupils are fixed but not dilated. HEART: Regular sinus rhythm. CHEST: Clear to auscultation. ABDOMEN: Obese but benign.. EXTREMITIES: Without cyanosis, clubbing, or edema. IMPRESSION: Postictal state, continued fever, possibly secondary to her underlying tumor, port removal, seizure disorder, intraabdominal small cell carcinoma. Darinel Wallace MD
--- NOTE | 2017-06-20 22:48 | PN ---
DATE: 06/20/2017 SUBJECTIVE: The patient was seen earlier this morning, no family members available at that time. She did have fever earlier last night; later on saw the patient's and had lengthy discussion about the patient's poor condition. PHYSICAL EXAMINATION: VITAL SIGNS: Temperature of 99, T-max is 101, blood pressure is 100/70, respiratory rate of 20 and heart rate of 100. HEENT: Unremarkable. NECK: Supple. LUNGS: Have decreased breath sounds. HEART EXAM: Normal S1 and S2. ABDOMINAL EXAMINATION: Soft, nontender. LABORATORY EXAMINATION: Reveals a white count of 8.7, hemoglobin of 13, platelets of 444. Chemistries reveal BUN of 14, creatinine of 0.6. Prolactin is 2.6, procalcitonin is negative x2. Urinalysis is noted and serology is pending. Microbiology reveals her repeat blood and urine cultures are all negative. Old blood cultures thus far have been negative. Dr. Wallace's note from today is reviewed. ASSESSMENT AND PLAN: A 77-year-old female with systemic inflammatory response syndrome, status post sepsis with right-sided pneumonia, status post treatment, 7 days of antibiotics; metastatic uterine cancer. Repeat cultures have all been negative. Removal of right anterior chest wall Port-A-Cath, acute encephalopathy, paraneoplastic syndrome. The patient continues to deteriorate, most likely underlying malignancy is the cause. The patient was given a dose of daptomycin yesterday; thus far, her blood culture are negative and was started on IV vancomycin today by Dr. Wallace. Overall prognosis is poor. Case discussed with the patient's at length. Thony Neville MD
[2017-06-21] MEDS: Albuterol-Ipratrop 3 mg / 0.5 (3 ml) UD IH SCH ×4 (01:34→20:05)
--- NOTE | 2017-06-21 01:56 | PN ---
DATE: 06/20/2017 The patient's hospital visit on the medical floor. For Dr. Stevenson. SUBJECTIVE: The patient is a 77-year-old female, seen lying, awake, opens her eyes to command, however, is nonverbal with reported earlier in the day having seizure activity recur with elevated temperature with the patient now seen lying awake, in no acute distress with her at the bedside. 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 PHYSICAL EXAMINATION VITAL SIGNS: Temperature 100.3, pulse 53, respirations 20, blood pressure 126/73, pulse oximetry 93%. HEENT: Unremarkable. The patient opens eyes to command, but is nonverbal. NECK: Supple. HEART: Baljinder rate, regular rhythm. LUNGS: Minimal decreased breath sounds. Faint rales at the right base. ABDOMEN: Obese, soft, nontender. EXTREMITIES: No edema. SKIN: Warm and dry. NEUROLOGIC: Awake, but nonverbal. Stares blankly to questioning. LABORATORY DATA: The patient's labs were done. White blood cell count of 8.7; hemoglobin 13.8; hematocrit 40.2; platelet count 414,000 with a chem metabolic panel within normal limits except for an AST of 89. Prolactin level 2.6, I believe this to be a procalcitonin level. The patient's most recent urinalysis from yesterday was completely negative. ASSESSMENT: 1. Fevers of unknown origin. 2. Seizure disorder, breakthrough on Keppra? 3. Aspiration, ?pneumonia 4. Metastatic small cell carcinoma involving the T4 vertebral body. 5. Lymphadenopathy. 6. Failure to thrive. 7. Deconditioning. 8. Mental status change, nonverbal. 9. Systemic inflammatory response syndrome. 10. Degenerative joint disease. 11. Acute encephalopathy. PLAN: For this patient, after conversation with Dr. Stevenson, to continue present medical regimen. Her port was recently removed with the patient to be loaded with Keppra as per neurology and her primary doctor with the prognosis for this patient guarded. Jonatan Wiggins MD [facility] # [id number]
[2017-06-21] MEDS: Thiamine 100 MG in Sodium Chloride 0.9% 50 ML IV SCH ×3 (02:46→23:03)
[2017-06-21] MEDS: Vancomycin 500mg in NS 500 MG/100 ML BAG IVPB SCH ×2 (02:50→09:51)
[2017-06-21 07:04] LABS: BASO # 0.03 K/mm3 (0.0-2.0); BASO % 0.6 % (0.0-3.0); EOS # 0.3 (0.0-0.7); EOS % 5.3 % (1.5-5.0); GRAN # 3.84 (1.4-6.5); GRAN % 72.3 % (50.0-68.0); HEMATOCRIT 35.6 % (36.0-48.0); LYMPH # 0.7 (1.2-3.4); LYMPH % 13.9 % (22.0-35.0); MEAN CELL VOLUME 91.8 fl (80.0-105.0); MEAN CORPUSCULAR HEMOGLOBIN 29.9 pg (25.0-35.0); MEAN CORPUSCULAR HGB CONC 32.6 g/dl (31.0-37.0); MEAN PLATELET VOLUME 8.3 fl (7.0-11.0); MONO # 0.4 (0.1-0.6); MONO % 7.9 % (1.0-6.0); RED CELL DISTRIBUTION WIDTH 14.6 % (11.5-14.5); WHITE BLOOD COUNT 5.3 10^3/ul (4.5-11.0)
[2017-06-21 07:37] LABS: ALB/GLOB RATIO 1.1 (1.1-1.8); ALKALINE PHOSPHATASE 64 U/L (38-126); ALT/SGPT 34 U/L (7-56); AST/SGOT 48 U/L (14-36); BILIRUBIN,TOTAL 0.8 mg/dL (0.2-1.3); BLOOD UREA NITROGEN 10 mg/dL (7-21); CARBON DIOXIDE 27 mmol/L (21-33); CHLORIDE 99 mmol/L (98-107); GFR AFRICAN-AMERICAN > 60; GLUCOSE,RANDOM 87 mg/dL (70-110); SODIUM 137 mmol/L (132-148); TOTAL PROTEIN 6.7 g/dL (5.8-8.3)
[2017-06-21] MEDS: levETIRAcetam 500mg IVPB 500 MG/100 ML BAG IVPB SCH ×2 (09:50→23:23)
[2017-06-21] MEDS: Sodium Chloride 0.45% 1,000 ML IV SCH (11:43)
[2017-06-21] MEDS: Megestrol Acetate 40 mg/ml Cup PO SCH (12:15)
--- NOTE | 2017-06-21 12:37 | RAD ---
HISTORY: rule out pneumonia COMPARISON: 06/19/2017 FINDINGS: LUNGS: There is platelike atelectasis at the right lung base. There is elevation of the right hemidiaphragm PLEURA: No significant pleural effusion identified, no pneumothorax apparent. CARDIOVASCULAR: Normal. OSSEOUS STRUCTURES: No significant abnormalities. VISUALIZED UPPER ABDOMEN: Normal. OTHER FINDINGS: None. IMPRESSION: Linear atelectasis at the right lung base. The lungs are otherwise clear
--- NOTE | 2017-06-21 19:50 | CP.PCM.PN ---
Subjective - Date & Time of Evaluation Date of Evaluation: 06/21/17 Time of Evaluation: 11:50 - Subjective Subjective: Patient continues to have fevers but has no cough or respiratory distress, no diarrhea, no vomiting. Continues to be emotionally labile. Objective - Vital Signs/Intake and Output Vital Signs (last 24 hours): Temp Pulse Resp BP Pulse Ox 100.3 F H 53 L 20 126/73 93 L 06/21/17 03:17 06/20/17 17:27 06/20/17 17:27 06/20/17 17:27 06/20/17 17:27 Intake and Output: 06/20/17 06/21/17 18:59 06:59 Intake Total 0 0 Output Total 0 Balance 0 0 - Medications Medications: Current Medications Acetaminophen (Tylenol 325mg Tab) 650 mg PO Q6H PRN PRN Reason: Temperature Last Admin: 06/18/17 01:17 Dose: 650 mg Acetaminophen (Tylenol 650 Mg Supp) 650 mg RC Q6H PRN PRN Reason: Fever >100.4 F Last Admin: 06/20/17 15:55 Dose: 650 mg Albuterol/Ipratropium (Duoneb 3 Mg/0.5 Mg (3 Ml) Ud) 3 ml IH [id number] [facility] Last Admin: 06/21/17 01:34 Dose: Not Given Amlodipine Besylate (Norvasc) 5 mg PO DAILY [facility] Last Admin: 06/20/17 10:46 Dose: Not Given Clonidine HCl (Catapres) 0.2 mg PO Q6 PRN PRN Reason: Systolic Blood Pressure Last Admin: 06/13/17 15:09 Dose: 0.2 mg Thiamine HCl 100 mg/ Sodium (Chloride) 51 mls @ 102 mls/hr IV Q8H [facility] Last Admin: 06/21/17 02:46 Dose: 102 mls/hr Levetiracetam (Keppra 500mg Ivpb) 500 mg in 100 mls @ 400 mls/hr IVPB Q12 [facility] Last Admin: 06/20/17 21:41 Dose: 400 mls/hr Vancomycin HCl (Vancomycin 500mg In Ns) 500 mg in 100 mls @ 200 mls/hr IVPB Q12 [facility] PRN Reason: Protocol Last Admin: 06/21/17 02:50 Dose: 200 mls/hr Sodium Chloride (Sodium Chloride 0.45%) 1,000 mls @ 80 mls/hr IV .[id number] [facility] Last Admin: 06/20/17 21:41 Dose: 80 mls/hr Lorazepam (Ativan) 0.5 mg IVP Q6H PRN; Protocol PRN Reason: Anxiety Last Admin: 06/20/17 08:02 Dose: 0.5 mg Memantine Hcl/Donepezil Hcl [ Namzaric Titration Pack] (Home) 1 tab PO HS [facility] Last Admin: 06/12/17 21:07 Dose: Not Given - Labs Labs: 06/20/17 07:55 06/20/17 07:55 PT 11.7 Seconds (9.9-11.8) 06/04/17 12:28 INR 1.08 (0.93-1.08) 06/04/17 12:28 APTT 26.7 Seconds (23.7-30.8) 06/04/17 12:28 - Constitutional Appears: Non-toxic, No Acute Distress - Head Exam Head Exam: NORMAL INSPECTION - ENT Exam ENT Exam: Mucous Membranes Moist - Neck Exam Neck Exam: absent: Meningismus - Respiratory Exam Respiratory Exam: Decreased Breath Sounds - Cardiovascular Exam Cardiovascular Exam: +S1, +S2 - GI/Abdominal Exam GI & Abdominal Exam: Soft. absent: Tenderness Assessment and Plan - Assessment and Plan (Free Text) Plan: Assessment Systemic Inflammatory Response Syndrome, with fever, S/P sepsis due to right sided pneumonia S/P treatment with 7 days of antibiotics; continued fever may be due to metastatic uterine cancer, so far repeat septic work up's (from 2016 and 06/19/2017) are negative - S/P of the right anterior chest wall port-a- cath but no evidence of line-related infection Acute encephalopathy, R/O paraneoplastic syndrome, R/O anti-NMDA receptor encephalitis R/O toxic-metabolic encephalopathy, slowly improving HTN osteoarthritis dementia obsessive-compulsive disorder S/P right sided port-a-cath placement Plan S/P 7 days of Vancomycin and Merrem; reviewed CT scan of the chest from 2016 which showed the right basilar infiltrates; repeat CXR today does not show infiltrates repeat blood and urine cx are negative (06/19/2017) Neuro evaluating for anti-NMDA receptor encephalitis will continue to monitor clinically overall prognosis is poor
--- NOTE | 2017-06-21 23:08 | PN ---
LOCATION: The patient is in room 561, bed #1. SUBJECTIVE: This is one of the several admissions for this 77-year-old female, who was admitted with progressive failure to thrive, confusion, disorientation and documented witness seizure episode at the [facility]. The patient has had a progressive worsening of clinical situation and condition over the last 2 weeks. The patient just had a port removed for possible source of infection, she was still spiking temperature. 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 MRI of the brain x2 does not show any obvious metastatic disease either in the parenchyma or in the left meningeal area. Source of the seizures could be still be directly or indirectly related to the underlying malignancy which was documented at the PET/CT scan to be extensive. The patient has very unusual type of cancer called small cell carcinoma that is arising probably from the cervix or uterus as a uterus was significantly enlarged at presentation. The patient was being treated for possible aspiration pneumonia and currently still on antibiotics though cultures have been negative. PHYSICAL EXAMINATION: GENERAL: The patient is examined in bed. VITAL SIGNS: T-max is 100.3, pulse 53, respirations 20, blood pressure 126/73 and pulse oximetry is 93%. HEENT: Head is normocephalic and atraumatic. The patient opens eyes to commands but is nonverbal. Examination of the oropharynx reveals no oropharyngeal lesions. NECK: Supple. There is no adenopathy. HEART: Reveals bradycardia. Regular rhythm. No gallop is heard. LUNGS: Reveals decreased breath sounds at the bases with faint rales on the right base. ABDOMEN: Soft, protuberant and nontender. Liver and spleen nonpalpable. EXTREMITIES: There is no cyanosis, clubbing or edema. SKIN: Skin turgor is normal. No skin lesions are noted. NEUROLOGIC: The patient is awake but nonverbal and keeps repeating herself and stares blankly on questioning. LABORATORY DATA: The patient's labs from today was reviewed. White count is 5.3 with hemoglobin 11.6, hematocrit 35 and platelet count of 325,000. Sodium is 137 and potassium of 3. Rest of the electrolytes are within normal limits. AST is 48, ALT is 34. Procalcitonin was 2.6 dated 06/20. MEDICATIONS: The patient's medications were reviewed. She is on Ativan 0.5 q. 6 h p.r.n., Catapres 0.2 mg q. 6 h for blood pressure systolic greater than 150. She is on DuoNeb 3 mL inhalers q. 6 hours. She is on Keppra 500 mg IV piggyback q. 12 hours. She is on Megace 400 mg daily. She is on Namzaric which is on hold, Norvasc 5 mg daily. She is on potassium 20 mEq infused over 2 hours x2 today. She is on IV fluids at 80 mL an hour, thiamine 100 mg IV q. 8 hours. She is on Tylenol 650 mg q. 4 h p.r.n. She is on vancomycin 500 mg q. 12 hours. ASSESSMENT NOTES AND PLAN: This is a 77-year-old female with progressive stage IV metastatic small cell carcinoma of [employer]OUND[employer]IE[employer] TECH[employer]ICAL OFFICER origin probably arising in the cervix of the uterus with extensive disease demonstrated on the PET/CT scan, status post 1 cycle and etoposide based chemotherapy, admitted to the hospital with failure to thrive, documented seizures, etiology which is unclear remotely or directly is probably related to the underlying malignancy, now being treated for possible infection, status post removal of the port. I had lengthy discussion with the patient, patient's family including the and the daughter from [place], I am going to speak to the son as well. In view of her progressive deterioration neurologically in conjunction with the fact that she has extensive small cell, my opinion was conveyed to the family that the patient should be a DNR/DNI and we should look for supportive care alone. We are going to look into the fact that since we are not going to be giving treatment directed towards the cancer, whether she would be an appropriate candidate for inpatient hospice as well. The patient requires full care and I do not think she could be handled by her , who is her only caregiver at this time as both her kids, the son and the daughter, live out of state. I have discussed my findings with the social work job titles and the nurse client portfolio manager on the floor as well, so we are going to try to see if can coordinate in some form of fashion for the patient to go to subacute rehab or inpatient hospice whichever is feasible at this point. Family is understanding and will comply with whatever needs to be done. 1. Keep the patient comfortable. 2. Send her to a place even though if she is not an acute care patient. Send her to a place where comfort measures can be given to her which may not be possible in a home situation at this point. Time spent in speaking to the family, collating my data and information to the social work job titles and . Jaida Stevenson MD
[2017-06-22] MEDS: Sodium Chloride 0.45% 1,000 ML IV SCH (01:39)
[2017-06-22] MEDS: Albuterol-Ipratrop 3 mg / 0.5 (3 ml) UD IH SCH ×4 (01:45→20:17)
[2017-06-22] MEDS: Thiamine 100 MG in Sodium Chloride 0.9% 50 ML IV SCH ×3 (03:37→18:15)
[2017-06-22] MEDS: levETIRAcetam 500mg IVPB 500 MG/100 ML BAG IVPB SCH (09:29)
[2017-06-22] MEDS: Megestrol Acetate 40 mg/ml Cup PO SCH (09:30)
--- NOTE | 2017-06-22 13:25 | CP.PCM.PN ---
Subjective - Date & Time of Evaluation Date of Evaluation: 06/22/17 Time of Evaluation: 12:25 - Subjective Subjective: Comfortable in bed, no fevers overnight, still with some lability in emotion. Objective - Vital Signs/Intake and Output Vital Signs (last 24 hours): Temp Pulse Resp BP Pulse Ox 99.4 F 111 H 20 153/93 H 98 06/21/17 16:00 06/21/17 16:00 06/21/17 16:00 06/21/17 16:00 06/21/17 16:00 Intake and Output: 06/21/17 06/22/17 18:59 06:59 Intake Total 360 Balance 360 - Medications Medications: Current Medications Acetaminophen (Tylenol 325mg Tab) 650 mg PO Q6H PRN PRN Reason: Temperature Last Admin: 06/18/17 01:17 Dose: 650 mg Acetaminophen (Tylenol 650 Mg Supp) 650 mg RC Q6H PRN PRN Reason: Fever >100.4 F Last Admin: 06/21/17 06:46 Dose: 650 mg Albuterol/Ipratropium (Duoneb 3 Mg/0.5 Mg (3 Ml) Ud) 3 ml IH [id number] [facility] Last Admin: 06/21/17 13:17 Dose: 3 ml Amlodipine Besylate (Norvasc) 5 mg PO DAILY [facility] Last Admin: 06/21/17 09:50 Dose: 5 mg Clonidine HCl (Catapres) 0.2 mg PO Q6 PRN PRN Reason: Systolic Blood Pressure Thiamine HCl 100 mg/ Sodium (Chloride) 51 mls @ 102 mls/hr IV Q8H [facility] Last Admin: 06/21/17 11:12 Dose: 102 mls/hr Levetiracetam (Keppra 500mg Ivpb) 500 mg in 100 mls @ 400 mls/hr IVPB Q12 [facility] Last Admin: 06/21/17 09:50 Dose: 400 mls/hr Sodium Chloride (Sodium Chloride 0.45%) 1,000 mls @ 80 mls/hr IV .[id number] [facility] Last Admin: 06/21/17 11:43 Dose: 80 mls/hr Potassium Chloride (Potassium Chloride 20 Meq/100 Ml) 20 meq in 100 mls @ 50 mls/hr IVPB Q2H [facility] Stop: 06/21/17 20:59 Last Admin: 06/21/17 19:48 Dose: 50 mls/hr Lorazepam (Ativan) 0.5 mg IVP Q6H PRN; Protocol PRN Reason: Anxiety Last Admin: 06/20/17 08:02 Dose: 0.5 mg Megestrol Acetate (Megace) 400 mg PO DAILY [facility] Last Admin: 06/21/17 12:15 Dose: 400 mg Memantine Hcl/Donepezil Hcl [ Namzaric Titration Pack] (Home) 1 tab PO HS [facility] Last Admin: 06/12/17 21:07 Dose: Not Given - Labs Labs: 06/21/17 06:15 06/21/17 06:15 PT 11.7 Seconds (9.9-11.8) 06/04/17 12:28 INR 1.08 (0.93-1.08) 06/04/17 12:28 APTT 26.7 Seconds (23.7-30.8) 06/04/17 12:28 - Constitutional Appears: Non-toxic, No Acute Distress - Head Exam Head Exam: NORMAL INSPECTION - Neck Exam Neck Exam: absent: Meningismus - Respiratory Exam Respiratory Exam: Decreased Breath Sounds - Cardiovascular Exam Cardiovascular Exam: +S1, +S2 - GI/Abdominal Exam GI & Abdominal Exam: Soft. absent: Tenderness Assessment and Plan - Assessment and Plan (Free Text) Plan: Assessment Systemic Inflammatory Response Syndrome, with fever, S/P sepsis due to right sided pneumonia S/P treatment with 7 days of antibiotics; continued fever may be due to metastatic uterine cancer, so far repeat septic work up's (from 2016 and 06/19/2017) are negative - S/P of the right anterior chest wall port-a- cath but no evidence of line-related infection Acute encephalopathy, R/O paraneoplastic syndrome, R/O anti-NMDA receptor encephalitis R/O toxic-metabolic encephalopathy, slowly improving HTN osteoarthritis dementia obsessive-compulsive disorder S/P right sided port-a-cath placement Plan S/P 7 days of Vancomycin and Merrem; reviewed CT scan of the chest from 2016 which showed the right basilar infiltrates; repeat CXR today does not show infiltrates repeat blood and urine cx are negative (06/19/2017) Neuro evaluating for anti-NMDA receptor encephalitis will continue to monitor clinically off antibiotics overall prognosis is poor
--- NOTE | 2017-06-22 14:56 | PN ---
DATE: 06/22/2017 LOCATION: The patient located in room 561, bed 1. SUBJECTIVE: This is one of the several admissions for this patient to this hospital. Patient is 77 years old, who was admitted with progressive failure to thrive, confusion, disorientation and documented and witnessed seizure episode at [facility]. The patient has a progressive worsening of clinical situation and condition over the last 2 weeks. She just had a port removed for possible source of infection. She was still spiking temperature. During the hospital course, the patient has become mentally obtunded and virtually nonresponsive, initially thought to be related to the medications, so the possibility of all to the possibility of metastatic cancer as the patient has underlying extensive small cell carcinoma of BRAND MARKETING COORDINATOR origin, thought to be an implicated factor in the confusion. MRI of the brain x2 does not show any obvious metastatic disease either in the parenchyma on the left or in the meningeal area. Source of the seizures could still be directly or indirectly related to the underlying malignancy, which was documented on the PET scan to be extensive. The patient has CT-guided biopsy of the retroperitoneal lymph node establishing the diagnosis of small cell carcinoma probably arising from BRAND MARKETING COORDINATOR origin as the uterus appeared to be significantly enlarged. The patient has unusual cancer as small cell carcinoma of the BRAND MARKETING COORDINATOR origin usually arises from the cervix. The patient has been treated with one cycle of chemotherapy of ifosfamide and etoposide about 6 weeks ago. The patient, given the current hospital situation, has been treated for possible aspiration pneumonia and currently is on antibiotics even though the cultures have been negative. PHYSICAL EXAMINATION: GENERAL: The patient is examined in bed. VITAL SIGNS: Stable, T-max is 100.3, pulse is 63, respirations 20, blood pressure 126/84 and pulse oximetry is 90%. HEENT: Head is normocephalic and atraumatic. The patient opens eyes to commands, but is nonverbal. Examination of the oropharynx reveals no oropharyngeal lesions. NECK: Supple. There is no adenopathy. HEART: Reveals bradycardia. Regular rhythm. No gallop is heard. LUNGS: Reveals decreased breath sounds at the bases with faint rales on the right base. ABDOMEN: Soft, protuberant and nontender. Liver and spleen nonpalpable. EXTREMITIES: Reveal no cyanosis, clubbing or edema. The patient has venous compression stocking, decompressive devices in both lower extremities. SKIN: Reveals normal skin turgor. No skin lesions are noted. NEUROLOGIC: The patient is barely responsive, nonverbal and not even able to utter any words even with the family, both her son and by the bedside with me at this time. LABORATORY DATA: Unchanged. MEDICATIONS: Reviewed. She is on Ativan 0.5 mg q. 6 hours p.r.n., Catapres 0.2 mg q. 6 hours for blood pressure systolic greater than 150, DuoNeb inhalers q. 6 hours. She is on Keppra 500 mg IV q. 12 hours. She is on Megace 400 mg daily. She is on Namzaric which is on hold, Norvasc 5 mg daily. She is on potassium supplements, infused for hypokalemia. She is on IV fluids, thiamine and she is on vancomycin. ASSESSMENT NOTES AND PLAN: Patient has progressive stage IV metastatic small cell carcinoma of BRAND MARKETING COORDINATOR origin probably arising in the cervix or uterus with extensive disease demonstrated on the PET/CT scan, status post one cycle post ifosfamide and etoposide-based chemotherapy, was admitted to the hospital with failure to thrive, documented seizures, etiology which is unclear, remotely or directly probably related to the underlying malignancy, now being treated for possible infection, status post removal of a venous port. I had a lengthy discussion with the patient's family including the son and the today. In view of her progressive deterioration neurologically in conjunction with the fact that she has extensive small cell carcinoma, my opinion is that the patient should be a DO NOT RESUSCITATE/DO NOT INTUBATE and we should look for supportive care including hospice. I told them that my discussion with the social security benefits interviewer lead me to believe that she could be a candidate for inpatient hospice in one of the nearby facilities. We will try to set up the process after discussing with the daughter as well on Saturday. I discussed these findings already with the nurse bus transportation manager and the social security benefits interviewer on Saturday. Family is fully understanding and will comply with whatever needs to be done. Our objective at this point is to keep the patient comfortable, try to keep safe and get her into an inpatient hospice as she is total care at this time. Time spent with the patient, family including the son was more than 90 minutes. Other options were also given to the patient such as try to set up how to go into a subacute rehab because may not be feasible at this point. Time spent greater than 90 minutes. Jaida tSevenson MD
[2017-06-22] MEDS: levETIRAcetam 500 mg/5ml UD cups PO SCH (17:51)
--- NOTE | 2017-06-22 23:10 | PN ---
DATE: 06/22/2017 SUBJECTIVE: She is comfortable in bed, in no acute distress. No fever overnight. Her sensorium is altered, she is arousable. She is having urinary retention, did not pass any urine since morning. Bladder scan showed 500 residual urine. REVIEW OF SYSTEMS: Limited, as she is not communicative. Afebrile though not coughing. Not in pain. PHYSICAL EXAMINATION: GENERAL: Comfortable in bed, no acute distress. VITAL SIGNS: Temperature 98.4, heart rate is 110 per minute, respiratory rate 20 per minute, blood pressure 153/93, pulse ox is 98% on room air. HEENT: Normal. NECK: Supple. CHEST: Air entry present and equal bilaterally. No added sounds. CARDIOVASCULAR EXAM: Within normal limits. ABDOMEN: Soft, nontender. No hepatosplenomegaly. EXTREMITIES: No edema. CENTRAL NERVOUS SYSTEM: Arousable, noncommunicative. Moving all the limbs. SKIN: No petechiae. No rash. LABORATORY DATA: White count 5.3, hemoglobin 11.6, hematocrit 35.6 and platelet count 327. Sodium is 137, potassium 3, BUN 10, creatinine 0.5, glucose 87. MEDICATIONS: Tylenol 650 q. 4 hours p.r.n.; albuterol, DuoNeb inhalation; Norvasc 5 mg daily; Catapres 0.2 mg q. 6 hours p.r.n.; thiamine; Keppra 500 mg q. 12 hours IV and IV fluid at 80 mL an hour; Ativan p.r.n. for agitation; Megace daily; donepezil 1 tablet daily. ASSESSMENT: 1. Stage IV small cell cancer, gynecologic origin. 2. Systemic inflammatory response. 3. Right-sided lung infiltrate. 4. Sepsis. 5. Encephalopathy. PLAN: She completed 7 days of antibiotics, vancomycin and meropenem. Dr. Neville following. She has right basilar infiltrate. Reviewed chest x-ray, did not show infiltrate. Repeat cultures are negative. She is currently off the antibiotics. She has urinary retention, ordered Santiago catheter which was placed successfully, draining clear urine. Blood count stable. Renal: BUN and creatinine normal. She has mild hypokalemia with potassium of 3, we will supplement K-Dur 20 mEq daily. Prognosis is guarded. Discussed with the at bedside. Discussed with the staff nurse. Lamar Cox MD [facility] # [id number] [place]
[2017-06-23] MEDS: Albuterol-Ipratrop 3 mg / 0.5 (3 ml) UD IH SCH ×4 (02:20→19:57)
[2017-06-23] MEDS: Thiamine 100 MG in Sodium Chloride 0.9% 50 ML IV SCH ×3 (04:00→18:16)
[2017-06-23] MEDS: Sodium Chloride 0.45% 1,000 ML IV SCH ×2 (04:45→16:11)
[2017-06-23] MEDS: Megestrol Acetate 40 mg/ml Cup PO SCH ×2 (10:57→11:04)
[2017-06-23] MEDS: levETIRAcetam 500 mg/5ml UD cups PO SCH (11:02)
[2017-06-23] MEDS: Potassium Chloride 20 mEq ER Tab PO SCH (11:02)
[2017-06-23] MEDS: levETIRAcetam 500 MG in Sodium Chloride 0.9% 100 ML IV SCH ×2 (12:56→22:40)
--- NOTE | 2017-06-23 19:11 | CP.PCM.PN ---
Subjective - Date & Time of Evaluation Date of Evaluation: 06/23/17 Time of Evaluation: 11:00 - Subjective Subjective: DATE: 06/23/2017 SUBJECTIVE: She is comfortable in bed, in no acute distress. No fever overnight. Her sensorium is altered, she is arousable. Santiago's cath draining clear urine. No events overnight. REVIEW OF SYSTEMS: Limited, as she is not communicative. Afebrile though not coughing. Not in pain. PHYSICAL EXAMINATION: GENERAL: Comfortable in bed, no acute distress. VITAL SIGNS: reviewed. HEENT: Normal. NECK: Supple. CHEST: Air entry present and equal bilaterally. No added sounds. CARDIOVASCULAR EXAM: Within normal limits. ABDOMEN: Soft, nontender. No hepatosplenomegaly. EXTREMITIES: No edema. CENTRAL NERVOUS SYSTEM: Arousable, noncommunicative. Moving all the limbs. SKIN: No petechiae. No rash. LABORATORY DATA: White count 5.3, hemoglobin 11.6, hematocrit 35.6 and platelet count 327. Sodium is 137, potassium 3, BUN 10, creatinine 0.5, glucose 87. MEDICATIONS: Tylenol 650 q. 4 hours p.r.n.; albuterol, DuoNeb inhalation; Norvasc 5 mg daily; Catapres 0.2 mg q. 6 hours p.r.n.; thiamine; Keppra 500 mg q. 12 hours IV and IV fluid at 80 mL an hour; Ativan p.r.n. for agitation; Megace daily; donepezil 1 tablet daily. ASSESSMENT: 1. Stage IV small cell cancer, gynecologic origin. 2. Systemic inflammatory response. 3. Right-sided lung infiltrate. 4. Sepsis. 5. Encephalopathy. PLAN: Status remains same. She completed 7 days of antibiotics, vancomycin and meropenem. Dr. Neville following. She has right basilar infiltrate. chest x-ray, did not show infiltrate. Repeat cultures are negative. She is currently off the antibiotics. Santiago catheter which was placed successfully, draining clear urine. Blood count stable. Renal: BUN and creatinine stable.. Keppra IV to continue. Prognosis is guarded. Discussed with the at bedside. Labs for am ordered. Discussed with the staff nurse. Lamar Cox MD Objective - Vital Signs/Intake and Output Vital Signs (last 24 hours): Temp Pulse Resp BP Pulse Ox 98.7 F 102 H 20 136/88 95 06/23/17 07:36 06/23/17 07:36 06/23/17 07:36 06/23/17 07:36 06/23/17 07:36 - Medications Medications: Current Medications Acetaminophen (Tylenol 325mg Tab) 650 mg PO Q6H PRN PRN Reason: Temperature Last Admin: 06/18/17 01:17 Dose: 650 mg Acetaminophen (Tylenol 650 Mg Supp) 650 mg RC Q6H PRN PRN Reason: Fever >100.4 F Last Admin: 06/21/17 06:46 Dose: 650 mg Albuterol/Ipratropium (Duoneb 3 Mg/0.5 Mg (3 Ml) Ud) 3 ml IH [id number] [facility] Last Admin: 06/23/17 14:13 Dose: 3 ml Amlodipine Besylate (Norvasc) 5 mg PO DAILY [facility] Last Admin: 06/23/17 11:03 Dose: Not Given Clonidine HCl (Catapres) 0.2 mg PO Q6 PRN PRN Reason: Systolic Blood Pressure Thiamine HCl 100 mg/ Sodium (Chloride) 51 mls @ 102 mls/hr IV Q8H [facility] Last Admin: 06/23/17 18:16 Dose: 102 mls/hr Sodium Chloride (Sodium Chloride 0.45%) 1,000 mls @ 80 mls/hr IV .[id number] [facility] Last Admin: 06/23/17 16:11 Dose: 80 mls/hr Levetiracetam 500 mg/ Sodium (Chloride) 105 mls @ 460 mls/hr IV Q12 [facility] Last Admin: 06/23/17 12:56 Dose: 460 mls/hr Lorazepam (Ativan) 0.5 mg IVP Q6H PRN; Protocol PRN Reason: Anxiety Last Admin: 06/22/17 09:26 Dose: 0.5 mg Megestrol Acetate (Megace) 400 mg PO DAILY [facility] Last Admin: 06/23/17 11:04 Dose: Not Given Memantine Hcl/Donepezil Hcl [ Namzaric Titration Pack] (Home) 1 tab PO HS [facility] Last Admin: 06/12/17 21:07 Dose: Not Given Potassium Chloride (K-Dur 20 Meq Er Tab) 20 meq PO DAILY [facility] Last Admin: 06/23/17 11:02 Dose: Not Given - Labs Labs: 06/21/17 06:15 06/21/17 06:15 PT 11.7 Seconds (9.9-11.8) 06/04/17 12:28 INR 1.08 (0.93-1.08) 06/04/17 12:28 APTT 26.7 Seconds (23.7-30.8) 06/04/17 12:28
[2017-06-23] MEDS ORDERED: Dextrose 50% SYRINGE Inj (50 ml) IVP ONE (20:13)
[2017-06-23] MEDS: Dextrose 5%/0.45% NS 1,000 ML IV SCH (22:40)
[2017-06-24] MEDS ORDERED: Nitroglycerin 2% Ointment Foilpak UD TOP STA (00:48)
--- NOTE | 2017-06-24 00:48 | CP.PCM.PN ---
Subjective - Date & Time of Evaluation Date of Evaluation: 06/24/17 Time of Evaluation: 00:48 - Subjective Subjective: Patient was seen at bedside. As per nurse her BP was 163/98.She has prn clonidine ordered but she can not swallow, she is lethargic. Patient has been this way after she takes ativan. She had ativan earlier. Patient not responding to any of my questions. Medical record was reviewed. This 77 year old white woman was admitted with anorexia, generalized weakness. Has PMH of HTN, osteoarthritis, dementia, metastatic small cell cancer, ovarian cancer. Objective - Vital Signs/Intake and Output Vital Signs (last 24 hours): Temp Pulse Resp BP Pulse Ox 100.5 F H 102 H 20 136/88 95 06/23/17 22:41 06/23/17 07:36 06/23/17 07:36 06/23/17 07:36 06/23/17 07:36 Intake and Output: 06/23/17 06/24/17 18:59 06:59 Intake Total 2400 Output Total 3250 Balance -850 - Medications Medications: Current Medications Acetaminophen (Tylenol 650 Mg Supp) 650 mg RC Q6H PRN PRN Reason: Fever >100.4 F Last Admin: 06/23/17 22:41 Dose: 650 mg Albuterol/Ipratropium (Duoneb 3 Mg/0.5 Mg (3 Ml) Ud) 3 ml IH [id number] [facility] Last Admin: 06/23/17 19:57 Dose: 3 ml Amlodipine Besylate (Norvasc) 5 mg PO DAILY [facility] Last Admin: 06/23/17 11:03 Dose: Not Given Clonidine HCl (Catapres) 0.2 mg PO Q6 PRN PRN Reason: Systolic Blood Pressure Thiamine HCl 100 mg/ Sodium (Chloride) 51 mls @ 102 mls/hr IV Q8H [facility] Last Admin: 06/23/17 18:16 Dose: 102 mls/hr Levetiracetam 500 mg/ Sodium (Chloride) 105 mls @ 460 mls/hr IV Q12 [facility] Last Admin: 06/23/17 22:40 Dose: 460 mls/hr Dextrose/Sodium Chloride (Dextrose 5%/0.45% Ns 1000 Ml) 1,000 mls @ 80 mls/hr IV .[id number] [facility] Last Admin: 06/23/17 22:40 Dose: 80 mls/hr Lorazepam (Ativan) 0.5 mg IVP Q6H PRN; Protocol PRN Reason: Anxiety Last Admin: 06/22/17 09:26 Dose: 0.5 mg Megestrol Acetate (Megace) 400 mg PO DAILY [facility] Last Admin: 06/23/17 11:04 Dose: Not Given Memantine Hcl/Donepezil Hcl [ Namzaric Titration Pack] (Home) 1 tab PO HS [facility] Last Admin: 06/12/17 21:07 Dose: Not Given Potassium Chloride (K-Dur 20 Meq Er Tab) 20 meq PO DAILY [facility] Last Admin: 06/23/17 11:02 Dose: Not Given - Labs Labs: 06/21/17 06:15 06/21/17 06:15 PT 11.7 Seconds (9.9-11.8) 06/04/17 12:28 INR 1.08 (0.93-1.08) 06/04/17 12:28 APTT 26.7 Seconds (23.7-30.8) 06/04/17 12:28 Last Vital Signs 3 Temp 100.5 F H 06/23/17 22:41 Pulse 102 H 06/23/17 07:36 Resp 20 06/23/17 07:36 BP 136/88 06/23/17 07:36 Pulse Ox 95 06/23/17 07:36 Laboratory Last Values WBC 5.3 10^3/ul (4.5-11.0) D 06/21/17 06:15 RBC 3.88 10^6/uL (3.5-6.1) 06/21/17 06:15 Hgb 11.6 g/dL (12.0-16.0) L D 06/21/17 06:15 Hct 35.6 % (36.0-48.0) L 06/21/17 06:15 MCV 91.8 fl (80.0-105.0) 06/21/17 06:15 MCH 29.9 pg (25.0-35.0) 06/21/17 06:15 MCHC 32.6 g/dl (31.0-37.0) 06/21/17 06:15 RDW 14.6 % (11.5-14.5) H 06/21/17 06:15 Plt Count 327 10^3/uL (120.0-450.0) 06/21/17 06:15 MPV 8.3 fl (7.0-11.0) 06/21/17 06:15 Gran % 72.3 % (50.0-68.0) H 06/21/17 06:15 Lymph % (Auto) 13.9 % (22.0-35.0) L 06/21/17 06:15 Stanton % (Auto) 7.9 % (1.0-6.0) H 06/21/17 06:15 Eos % (Auto) 5.3 % (1.5-5.0) H 06/21/17 06:15 Baso % (Auto) 0.6 % (0.0-3.0) 06/21/17 06:15 Gran # 3.84 (1.4-6.5) 06/21/17 06:15 Lymph # 0.7 (1.2-3.4) L 06/21/17 06:15 Stanton # 0.4 (0.1-0.6) 06/21/17 06:15 Eos # 0.3 (0.0-0.7) 06/21/17 06:15 Baso # 0.03 K/mm3 (0.0-2.0) 06/21/17 06:15 PT 11.7 Seconds (9.9-11.8) 06/04/17 12:28 INR 1.08 (0.93-1.08) 06/04/17 12:28 APTT 26.7 Seconds (23.7-30.8) 06/04/17 12:28 D-Dimer, Quantitative 14.08 mg/L FEU (0-0.50) H 06/09/17 11:40 pO2 58 mm/Hg (30-55) H 06/13/17 07:45 VBG pH 7.49 (7.32-7.43) H 06/13/17 07:45 VBG pCO2 37.0 (40-60) L 06/13/17 07:45 VBG HCO3 28.2 mmol/l (21-28) H 06/13/17 07:45 VBG Total CO2 29.3 mmol.L (22-28) H 06/13/17 07:45 VBG O2 Sat (Calc) 96.2 % (40-65) H 06/13/17 07:45 VBG Base Excess 4.7 mmol/L (0.0-2.0) H 06/13/17 07:45 VBG Potassium 4.2 mmol/L (3.6-5.2) 06/13/17 07:45 Sodium 133.0 mmol/L (132-148) 06/13/17 07:45 Chloride 98.0 mmol/L (98-107) 06/13/17 07:45 Glucose 119 mg/dl (65-105) H 06/13/17 07:45 Lactate 2.2 mmol/L (0.7-2.1) H 06/13/17 07:45 FiO2 21.0 % 06/13/17 07:45 Sodium 137 mmol/L (132-148) 06/21/17 06:15 Potassium 3.0 mmol/L (3.6-5.0) L 06/21/17 06:15 Chloride 99 mmol/L (98-107) 06/21/17 06:15 Carbon Dioxide 27 mmol/L (21-33) 06/21/17 06:15 Anion Gap 14 (10-20) 06/21/17 06:15 BUN 10 mg/dL (7-21) 06/21/17 06:15 Creatinine 0.5 mg/dL (0.5-1.4) 06/21/17 06:15 Est GFR ( Amer) > 60 06/21/17 06:15 Est GFR (Non-Af Amer) > 60 06/21/17 06:15 POC Glucose (mg/dL) 83 mg/dL (65-110) 06/23/17 20:19 Random Glucose 87 mg/dL (70-110) 06/21/17 06:15 Calcium 9.0 mg/dL (8.4-10.5) 06/21/17 06:15 Phosphorus 3.1 mg/dL (2.5-4.5) 06/13/17 01:25 Magnesium 2.0 mg/dL (1.7-2.2) 06/13/17 01:25 Total Bilirubin 0.8 mg/dL (0.2-1.3) 06/21/17 06:15 AST 48 U/L (14-36) H D 06/21/17 06:15 ALT 34 U/L (7-56) 06/21/17 06:15 Alkaline Phosphatase 64 U/L (38-126) 06/21/17 06:15 Total Creatine Kinase 29 U/L (35-230) L 06/20/17 06:05 Total Protein 6.7 g/dL (5.8-8.3) 06/21/17 06:15 Albumin 3.5 g/dL (3.0-4.8) 06/21/17 06:15 Globulin 3.3 gm/dL 06/21/17 06:15 Albumin/Globulin Ratio 1.1 (1.1-1.8) 06/21/17 06:15 Vitamin B12 341 pg/mL (239-931) 06/14/17 10:45 Procalcitonin < 0.05 NG/ML (0.19-0.49) L 06/19/17 07:00 Prolactin 2.6 ng/mL (3.0-18.9) L 06/20/17 07:55 Venous Blood Potassium 4.2 mmol/L (3.6-5.2) 06/13/17 07:45 Urine Color Yellow (YELLOW) 06/19/17 16:16 Urine Appearance Clear (CLEAR) 06/19/17 16:16 Urine pH 7.5 (4.7-8.0) 06/19/17 16:16 Ur Specific [place] 1.015 (1.005-1.035) 06/19/17 16:16 Urine Protein Negative mg/dL (<30 mg/dL) 06/19/17 16:16 Urine Glucose (UA) Negative mg/dL (NEGATIVE) 06/19/17 16:16 Urine Ketones Negative mg/dL (NEGATIVE) 06/19/17 16:16 Urine Blood Negative (NEGATIVE) 06/19/17 16:16 Urine Nitrate Negative (NEGATIVE) 06/19/17 16:16 Urine Bilirubin Negative (NEGATIVE) 06/19/17 16:16 Urine Urobilinogen 0.2 E.U./dL (<1 E.U./dL) 06/19/17 16:16 Ur Leukocyte Esterase Negative [place]/uL (NEGATIVE) 06/19/17 16:16 Urine RBC 1 - 3 /hpf (0-2) 06/18/17 15:10 Urine WBC 0 - 2 /hpf (0-6) 06/18/17 15:10 Ur Epithelial Cells 0 - 2 /hpf (0-5) 06/11/17 08:20 Urine Bacteria Few (NEG) 06/05/17 01:00 Anti-NMDA Rec Method See note 06/12/17 06:00 Anti-NMDA Technical Res See note 06/12/17 06:00 Anti-NMDA Rec Interp See note 06/12/17 06:00 Anti-NMDA Rec Comment See note 06/12/17 06:00 Anti-NMDA Rec Reference See note 06/12/17 06:00 - Constitutional Appears: No Acute Distress - Head Exam Head Exam: ATRAUMATIC, NORMAL INSPECTION, NORMOCEPHALIC - Eye Exam Eye Exam: Normal appearance - ENT Exam ENT Exam: Normal External Ear Exam - Neck Exam Neck Exam: Normal Inspection - Respiratory Exam Respiratory Exam: NORMAL BREATHING PATTERN - Cardiovascular Exam Cardiovascular Exam: absent: JVD - GI/Abdominal Exam GI & Abdominal Exam: absent: Distended - Rectal Exam Rectal Exam: Deferred - Exam Additional comments: Deferred. - Extremities Exam Extremities Exam: Normal Inspection - Back Exam Back Exam: NORMAL INSPECTION - Neurological Exam Neurological Exam: Altered - Psychiatric Exam Psychiatric exam: Depressed - Skin Skin Exam: Normal Color Assessment and Plan - Assessment and Plan (Free Text) Assessment: Elevated blood pressure reading. Lethargy. HTN. Osteoarthritis. Dementia. Metastatic small cell cell cancer. Ovarian cancer. Plan: NTP 10/15 " topicallt stat. Continue present management.
[2017-06-24] MEDS: Albuterol-Ipratrop 3 mg / 0.5 (3 ml) UD IH SCH ×4 (01:07→19:42)
[2017-06-24] MEDS: Thiamine 100 MG in Sodium Chloride 0.9% 50 ML IV SCH ×3 (03:05→20:19)
[2017-06-24 07:07] LABS: BASO # 0.03 K/mm3 (0.0-2.0); BASO % 0.5 % (0.0-3.0); EOS # 0.2 (0.0-0.7); EOS % 3.3 % (1.5-5.0); GRAN # 3.36 (1.4-6.5); GRAN % 58.3 % (50.0-68.0); HEMATOCRIT 31.4 % (36.0-48.0); LYMPH # 1.7 (1.2-3.4); LYMPH % 29.9 % (22.0-35.0); MEAN CELL VOLUME 89.7 fl (80.0-105.0); MEAN CORPUSCULAR HEMOGLOBIN 30.3 pg (25.0-35.0); MEAN CORPUSCULAR HGB CONC 33.8 g/dl (31.0-37.0); MEAN PLATELET VOLUME 8.2 fl (7.0-11.0); MONO # 0.5 (0.1-0.6); RED CELL DISTRIBUTION WIDTH 14.4 % (11.5-14.5); WHITE BLOOD COUNT 5.8 10^3/ul (4.5-11.0)
[2017-06-24 07:16] LABS: BLOOD UREA NITROGEN 8 mg/dL (7-21); CALCIUM 8.9 mg/dL (8.4-10.5); CARBON DIOXIDE 25 mmol/L (21-33); CHLORIDE 99 mmol/L (95-110); GFR AFRICAN-AMERICAN > 60; GLUCOSE,RANDOM 98 mg/dL (70-110); SODIUM 134 mmol/L (132-148)
[2017-06-24 08:07] VITALS: O2SAT 96
[2017-06-24] MEDS: Megestrol Acetate 40 mg/ml Cup PO SCH (11:00)
[2017-06-24] MEDS: levETIRAcetam 500 MG in Sodium Chloride 0.9% 100 ML IV SCH (11:00)
[2017-06-24] MEDS: Potassium Chloride 20 mEq ER Tab PO SCH ×2 (11:00)
[2017-06-24] MEDS: Dextrose 5%/0.45% NS 1,000 ML IV SCH (11:15)
[2017-06-24] MEDS ORDERED: Thiamine 100 mg/ml Inj ONE (12:10)
--- NOTE | 2017-06-24 14:10 | CP.PCM.PN ---
Subjective - Date & Time of Evaluation Date of Evaluation: 06/24/17 Time of Evaluation: 12:10 - Subjective Subjective: Had one episode of 100.5 F temp which did not persist, not in distress. Objective - Vital Signs/Intake and Output Vital Signs (last 24 hours): Temp Pulse Resp BP Pulse Ox 98.9 F 78 20 143/80 96 06/22/17 07:38 06/22/17 07:38 06/22/17 07:38 06/22/17 09:32 06/22/17 07:38 Intake and Output: 06/22/17 06/22/17 06:59 18:59 Intake Total 2160 Balance 2160 - Medications Medications: Current Medications Acetaminophen (Tylenol 325mg Tab) 650 mg PO Q6H PRN PRN Reason: Temperature Last Admin: 06/18/17 01:17 Dose: 650 mg Acetaminophen (Tylenol 650 Mg Supp) 650 mg RC Q6H PRN PRN Reason: Fever >100.4 F Last Admin: 06/21/17 06:46 Dose: 650 mg Albuterol/Ipratropium (Duoneb 3 Mg/0.5 Mg (3 Ml) Ud) 3 ml IH [id number] [facility] Last Admin: 06/22/17 07:19 Dose: 3 ml Amlodipine Besylate (Norvasc) 5 mg PO DAILY [facility] Last Admin: 06/22/17 09:32 Dose: 5 mg Clonidine HCl (Catapres) 0.2 mg PO Q6 PRN PRN Reason: Systolic Blood Pressure Thiamine HCl 100 mg/ Sodium (Chloride) 51 mls @ 102 mls/hr IV Q8H [facility] Last Admin: 06/22/17 12:41 Dose: 102 mls/hr Levetiracetam (Keppra 500mg Ivpb) 500 mg in 100 mls @ 400 mls/hr IVPB Q12 [facility] Last Admin: 06/22/17 09:29 Dose: 400 mls/hr Sodium Chloride (Sodium Chloride 0.45%) 1,000 mls @ 80 mls/hr IV .[id number] [facility] Last Admin: 06/22/17 01:39 Dose: 80 mls/hr Lorazepam (Ativan) 0.5 mg IVP Q6H PRN; Protocol PRN Reason: Anxiety Last Admin: 06/22/17 09:26 Dose: 0.5 mg Megestrol Acetate (Megace) 400 mg PO DAILY [facility] Last Admin: 06/22/17 09:30 Dose: 400 mg Memantine Hcl/Donepezil Hcl [ Namzaric Titration Pack] (Home) 1 tab PO HS [facility] Last Admin: 06/12/17 21:07 Dose: Not Given - Labs Labs: 06/21/17 06:15 06/21/17 06:15 PT 11.7 Seconds (9.9-11.8) 06/04/17 12:28 INR 1.08 (0.93-1.08) 06/04/17 12:28 APTT 26.7 Seconds (23.7-30.8) 06/04/17 12:28 - Constitutional Appears: Non-toxic, No Acute Distress - Head Exam Head Exam: NORMAL INSPECTION - ENT Exam ENT Exam: Mucous Membranes Moist - Neck Exam Neck Exam: absent: Meningismus - Respiratory Exam Respiratory Exam: Decreased Breath Sounds - Cardiovascular Exam Cardiovascular Exam: +S1, +S2 - GI/Abdominal Exam GI & Abdominal Exam: Soft. absent: Tenderness Assessment and Plan - Assessment and Plan (Free Text) Plan: Assessment S/P Systemic Inflammatory Response Syndrome, with fever, S/P sepsis due to right sided pneumonia S/P treatment with 7 days of antibiotics; continued fever may be due to metastatic uterine cancer, so far repeat septic work up's (from 06/18/2017 and 06/19/2017) are negative - S/P of the right anterior chest wall port-a- cath but no evidence of line-related infection Acute encephalopathy, R/O paraneoplastic syndrome, R/O anti-NMDA receptor encephalitis R/O toxic-metabolic encephalopathy, slowly improving HTN osteoarthritis dementia obsessive-compulsive disorder S/P right sided port-a-cath placement Plan S/P 7 days of Vancomycin and Merrem; reviewed CT scan of the chest from 2016 which showed the right basilar infiltrates; repeat CXR does not show infiltrates will continue to monitor clinically off antibiotics since she is at risk for infections overall prognosis is poor
--- NOTE | 2017-06-24 14:35 | PN ---
SUBJECTIVE: A 77-year-old white female found today in a semicomatose state with a right upcoming Babinski, left down; pupils that are fixed, minimally dilated with left nystagmus and right lateral gaze. The patient has been obtunded for the last 24 to 48 hours, not taking any liquids or solids, not waking, not arousable, not responding to pain or verbal or tactile stimuli. Vital signs are stable. There has been a low-grade fevers in 99 to 100 over the last week to 10 days despite almost on antibiotics. The patient has a history of metastatic small-cell intraabdominal carcinoma, status post 1 course of chemotherapy without results; seizure disorder, on Keppra; history of progressive dementia; MRI showing multiinfarct dementia, extensive disease, also confirmed by EEG. Case was discussed with the patient's family with the at bedside. The plan is to start palliative care, hospice evaluation, and proceed as follows. PHYSICAL EXAMINATION: GENERAL: This is a well-developed, obese, white female who has been in semicomatose state without any neurological response at this point to verbal, tactile or painful stimuli. As stated previously, upcoming Babinski, right; downgoing Babinski, left; right lateral gaze; left nystagmus; pupils fixed and minimally dilated. CARDIAC: Revealed sinus rhythm. CHEST: Clear to auscultation and percussion. ABDOMEN: Obese but benign. IMPRESSION: Worsening neurological deterioration in a 77-year-old white female with metastatic cancer, seizure disorder, and dementia. Darinel Wallace MD
[2017-06-24] MEDS: Potassium Chloride 40 MEQ in Dextrose 5%/0.45% NS 1,000 ML IV SCH (15:22)
[2017-06-24] MEDS: levETIRAcetam 500mg IVPB 500 MG/100 ML BAG IVPB SCH (21:35)
--- NOTE | 2017-06-25 01:06 | PN ---
DATE: 06/24/2017 LOCATION: The patient is in room 561, bed #1. SUBJECTIVE: The patient's is by the bedside. This is one of the several admissions for this patient to this hospital. The patient is 77-year-old was admitted with progressive failure to thrive, confusion, disorientation and documented and witnessed seizure episode at [facility]. The patient has a progressive worsening of clinical situation and condition over the past 2 weeks. She just had a port removed for possible source of infection. She was still spiking temperature. During the hospital course, the patient had become mentally obtunded and virtually unresponsive, initially thought to be related to the antibiotics or medications. The possibility of metastatic cancer as being a cause for this was also implicated. The patient has extensive small cell carcinoma of ASSISTANT SUPERINTENDENT origin, and this could be a cause for the confusion as well. MRI of the brain x2 does not show any obvious metastatic disease either in the parenchyma or in the meningeal area. Source of these seizures could still be directly or indirectly related to the underlying malignancy, which was documented on the PET scan that the patient has extensive metastatic cancer. The patient had CT-guided biopsy of the retroperitoneal lymph node establishing the diagnosis of small cell carcinoma probably arising from ASSISTANT SUPERINTENDENT origin as the uterus appears to be significantly enlarged. The patient has unusual cancer, a small cell kind of carcinoma of the ASSISTANT SUPERINTENDENT origin, usually arises from the cervix and is unusual. The patient has been treated with one cycle of chemotherapy with coquille and etoposide about 6 years ago. The patient, given the current medical situation, has been treated for possible aspiration pneumonia and currently is on IV antibiotics and overall prognosis appears to be poor, though the cultures are all negative, leading me to believe that most of her symptoms are from progressive cancer. PHYSICAL EXAMINATION: GENERAL: The patient is examined in bed. is by the bedside. VITAL SIGNS: Stable as stated in the chart. T-max is 98.4, pulse is 63, respirations 18, blood pressure 130/84 and pulse oximetry is 90%. HEENT: Head is normocephalic and atraumatic. The patient opens her eyes to commands, but is nonverbal. Examination of the oropharynx reveals no oropharyngeal lesions. NECK: Supple. There is no adenopathy. No jugular venous distention noted. HEART: Reveals bradycardia. Regular rhythm. No gallop is heard. LUNGS: Reveals decreased breath sounds at both bases with faint rales on the right base. ABDOMEN: Soft, protuberant and nontender. Liver and spleen are not palpable. EXTREMITIES: Reveals no cyanosis, clubbing or edema. The patient has venous compression devices in both lower extremities. SKIN: Skin turgor is normal. No skin lesions are noted. NEUROLOGIC: The patient is barely responsive, nonverbal and not even able to utter any words even with the family, while the is there at the bedside, while I am examining the patient. LABORATORY DATA: Unchanged. MEDICATIONS: Reviewed and they are unchanged. ASSESSMENT NOTES AND PLAN: The patient is progressive stage IV metastatic small cell carcinoma of the ASSISTANT SUPERINTENDENT origin, probably arising in the cervix of the uterus with extensive disease demonstrated on the PET/CT scan. Status post 1 cycle of coquille and etoposide-based chemotherapy. The patient was admitted to the hospital with failure to thrive, with documented seizures, etiology of which is unclear, remotely direct or indirectly probably related to the underlying malignancy. The patient is being now treated for possible infection, status post removal of the venous port. Had a lengthy discussion with the patient's today and I have already spoken to the son over the weekend, spoken to the daughter as well. I spoke to Gema, the social security assessor in charge of the patient's discharge, and we discussed about the plan that the patient should be a do not resuscitate/do not intubate, should be assessed for an inpatient hospice. I told them that in my discussion with the social security assessor it let me to believe that she could not be a candidate of inpatient hospice in rather near facilities. We tried to set up a process wherein she can at least be an inpatient in hospice in one of the tertiary facilities, where they may accept patients like her with the situation where she is still on IV antibiotics and also on active antiseizure medicines which are being given intravenously. Our objective at this point is to keep the patient comfortable, to keep her safe, and get her into the inpatient hospice as she is total care at this point. Time spent with the patient is greater than 90 minutes. Spoken to the social security assessor at great length this morning. Spoke to the family as well. Jaida Stevenson MD
[2017-06-25] MEDS: Albuterol-Ipratrop 3 mg / 0.5 (3 ml) UD IH SCH ×3 (01:32→13:29)
[2017-06-25] MEDS: Thiamine 100 MG in Sodium Chloride 0.9% 50 ML IV SCH ×2 (03:17→12:00)
[2017-06-25] MEDS: Potassium Chloride 40 MEQ in Dextrose 5%/0.45% NS 1,000 ML IV SCH (05:39)
[2017-06-25 07:20] VITALS: BP 157/103; PULSE 85; TEMP 99.4
[2017-06-25] MEDS ORDERED: HYDROmorphone 0.5 mg/0.5 ml ISec IVP PRN (08:27)
[2017-06-25] MEDS: Potassium Chloride 20 mEq ER Tab PO SCH (10:58)
[2017-06-25] MEDS: Megestrol Acetate 40 mg/ml Cup PO SCH (10:58)
[2017-06-25] MEDS: levETIRAcetam 500mg IVPB 500 MG/100 ML BAG IVPB SCH (10:59)
[2017-06-25] MEDS ORDERED: Nitroglycerin 2% Ointment Foilpak UD TOP SCH (12:07)
--- NOTE | 2017-06-25 16:00 | PN ---
DATE: 06/25/2017 SUBJECTIVE: The patient is seen earlier this morning in 561. She is comfortable. No fevers this morning. She did have fever yesterday. There has been no abdominal pain or diarrhea. PHYSICAL EXAMINATION: VITAL SIGNS: Temperature is 99, T-max is 100.4, blood pressure is 150/100, respiratory rate of 20, and heart rate of 85. HEENT: Unremarkable. NECK: Supple. LUNGS: Have decreased breath sounds. HEART: Normal S1 and S2. ABDOMEN: Soft and nontender. Review of the orders revealed the patient to be off of antibiotics. LABORATORY EXAMINATION: Reveals the patient's white count is noted. ASSESSMENT AND PLAN: A 77-year-old female status post systemic inflammatory response syndrome, some right-sided pneumonia, was treated with antibiotics, continued having intermittent fevers, probably from metastatic uterine cancer, repeat cultures have been negative in a patient with acute encephalopathy and was ruled out paraneoplastic syndrome, [id number]-aspartate receptor encephalitis must be considered and hypertension, osteoarthritis, dementia, obsessive-compulsive disorder, status post right Port-A-Cath removal, treated with vancomycin and meropenem over 7 days, currently now off of antibiotics, continues to have intermittent fever; however, not looking toxic, most likely malignancy underlying. Thony Neville MD
--- NOTE | 2017-06-25 18:51 | PN ---
DATE: SUBJECTIVE: A 77-year-old white female status post being in comatose state. The patient awoke this morning. She has uncontrolled crying, has not been able to focus on myself and her , unintelligible speech, crying for no reason. Vital signs are stable. The patient has had history of seizure disorder, dementia and metastatic intraabdominal carcinoma. PHYSICAL EXAMINATION VITAL SIGNS: Stable with slightly elevated blood pressure 157/103, temperature is 99.4, temperature was between 98 and 101 for over 10 days. The patient is off antibiotics. HEART: Regular sinus rhythm. CHEST: Clear to auscultation. ABDOMEN: Obese but benign. EXTREMITIES: Without cyanosis, clubbing, or edema. LABORATORY DATA: All cultures have been negative. The patient has had recent CT of the head and MRIs of the head which showed diffuse microvascular disease but no other metastatic disease. Laboratory data have been unremarkable. White count is down to 5.8 and hemoglobin is 10.6. Chemistries are normal except for low potassium of 3 which is being replaced. ASSESSMENT AND PLAN: Case was discussed with the at bedside. Plan is to proceed with hospice care due to the metastatic state for intraabdominal small cell carcinoma and dementia. Darinel Wallace MD
--- NOTE | 2017-06-26 08:33 | PN ---
DATE: 06/25/2017 LOCATION: The patient is in room 561. SUBJECTIVE: The patient is being transferred to inpatient hospice within the next half hour under the supervision of [facility]. Orders have already been sent in and the patient is going to be kept on comfort measures. The patient's is at the bedside, so is her son and her granddaughter. This is one of the several admissions for this patient to the hospital. The patient is a 77-year-old female who was admitted with progressive failure to thrive, confusion, disorientation, and documented with witnessed seizure episode at [facility]. The patient had progressive worsening of the clinical situation and condition over the past two weeks. She just had a port removed for possible source of infection, but still spiking temperature. During the hospital course, the patient become mentally obtunded and virtually unresponsive, initially thought to be related to the antibiotics or medications. The possibility of the metastatic cancer as being a cause for this was also implicated. The patient has extensive small cell carcinoma of [employer] origin, and this could be a cause for the confusion as well. MRI of the brain x2 did not show any obvious metastatic disease either in the parenchyma or in the meningeal area. Source of these seizures could still be directly or indirectly related to the underlying malignancy, which was documented with PET scan to be extensive. The patient had a CT-guided biopsy of the retroperitoneal lymph node establishing the diagnosis of small cell carcinoma, probably arising from [employer] origin as the uterus appears to be significantly enlarged. The patient has unusual cancer, small cell carcinoma of unknown origin, usually this arises from the cervix and is uncommon. The patient has been treated with one cycle of chemotherapy with platinol and etoposide about six weeks ago. The patient, given the current medical situation, has been treated for possible aspiration pneumonia and was also currently until recently on IV antibiotics. Since the patient's medical condition is deteriorating, I had a long talk with the patient's family including the daughter who lives in [place] and the son from [place], we are trying to make the patient comfortable. She was admitted DNR/DNI. We are assessing to see if the patient could be or should be transferred to an inpatient hospice. In the meantime, as the patient's condition was worsening, we have decided to put her on inpatient hospice while in the hospital. PHYSICAL EXAMINATION GENERAL: The patient is awake, but really unable to communicate with us at this point in time, appears to be restless and tremulous with her shaking her arms and her legs. The patient is crying also spontaneously several times. She is not able to recognize the immediate family around her nor was she able to recognize me. VITAL SIGNS: Stable as stated in the chart. HEENT: Head is normocephalic and atraumatic. The patient opens her eye, but is barely responsive and nonverbal, not even able to utter any words to the family. LABORATORY DATA: Unchanged. MEDICATIONS: Reviewed and unchanged. 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 Status post 1 cycle of platinol and etoposide-based chemotherapy. The patient was admitted to the hospital with failure to thrive and with documented seizures, etiology of which is unclear, could be related to the underlying cancer. The patient was being treated for underlying infection and now with gradual deterioration and worsening of her symptoms is being transitioned over to inpatient hospice after having spoken to all members of the family, caretakers, and social media job titles and the charge nurse on the floor. Family is aware of the patient's situation and they are in acceptance. Plan for now would be to keep the patient comfortable, Ativan and Benadryl have been ordered round the clock, Huan Granados.. Jaida Stevenson MD MTDNupur
== END 2017-06-25 17:37 | disposition hospice, inpatient (51) | DRG 754 ==
LOC: ED 11:18 → ERH 14:41 → 5RNO 17:17 → OBSVTOIN 06-05 16:00
PROVIDERS: ADMIT Internal Medicine; ATTEND Internal Medicine
PROC: 05PY33Z Removal of Infusion Device from Upper Vein, Percutaneous Approach (ICD-10-PCS; principal; 2017-06-19)
PROC: 0JPV3XZ Removal of Tunneled Vascular Access Device from Upper Extremity Subcutaneous Tissue and Fascia, Percutaneous Approach (ICD-10-PCS; 2017-06-19)
PROC: B5131ZA Fluoroscopy of Right Jugular Veins using Low Osmolar Contrast, Guidance (ICD-10-PCS; 2017-06-19)
PROC: 0T9B70Z Drainage of Bladder with Drainage Device, Via Natural or Artificial Opening (ICD-10-PCS; 2017-06-22)
DX: C53.9 Malignant neoplasm of cervix uteri, unspecified (principal); A41.9 Sepsis, unspecified organism; J69.0 Pneumonitis due to inhalation of food and vomit; G93.40 Encephalopathy, unspecified; F05 Delirium due to known physiological condition; C77.2 Secondary and unspecified malignant neoplasm of intra-abdominal lymph nodes; C79.89 Secondary malignant neoplasm of other specified sites; E86.0 Dehydration; G40.409 Other generalized epilepsy and epileptic syndromes, not intractable, without status epilepticus; F03.90 Unspecified dementia, unspecified severity, without behavioral disturbance, psychotic disturbance, mood disturbance, and anxiety; R62.7 Adult failure to thrive; I10 Essential (primary) hypertension; M17.0 Bilateral primary osteoarthritis of knee; F42.9 Obsessive-compulsive disorder, unspecified; E87.6 Hypokalemia; R33.9 Retention of urine, unspecified; R40.1 Stupor; H55.00 Unspecified nystagmus; Z51.5 Encounter for palliative care; Z66 Do not resuscitate

== ENCOUNTER 2017-06-25 17:37 | Inpatient (IN) | payer OTHER ==
[2017-06-25] MEDS ORDERED: DiphenhydrAMINE 50 mg/ml Inj IVP STA (18:42)
[2017-06-25] MEDS ORDERED: HYDROmorphone 0.5 mg/0.5 ml ISec IVP PRN (18:42)
[2017-06-25] MEDS ORDERED: DiphenhydrAMINE 50 mg/ml Inj IVP PRN (18:57)
[2017-06-25] MEDS: Albuterol-Ipratrop 3 mg / 0.5 (3 ml) UD IH SCH (20:46)
[2017-06-25] MEDS ORDERED: levETIRAcetam 500 MG in Sodium Chloride 0.9% 100 ML IV SCH (22:00)
[2017-06-25 23:18] VITALS: BMI 34.2
[2017-06-25] MEDS ORDERED: Pneumococcal 23-Valent Vaccine IM ONE (23:18)
[2017-06-26] MEDS: Albuterol-Ipratrop 3 mg / 0.5 (3 ml) UD IH SCH ×6 (00:35→20:52)
[2017-06-26] MEDS: levETIRAcetam 500mg IVPB 500 MG/100 ML BAG IVPB SCH ×2 (10:33→21:24)
--- NOTE | 2017-06-26 14:54 | PN ---
Recently admitted to in-hospital hospice. SUBJECTIVE: The patient is a 77-year-old white female with metastatic intraabdominal small cell carcinoma, dementia, seizure disorder, change in mental status, confusion, disorientation. The patient is semi-comatosed today, she is unarousable. The pupils are fixed and dilated. The patient is tolerating, as needed minimal pain medication or medication on hospice. She continues on her Keppra intravenous. Her family is at bedside. Vital sings are stable. Condition is unchanged. Prognosis is poor. Darinel Wallace MD
[2017-06-27] MEDS: Albuterol-Ipratrop 3 mg / 0.5 (3 ml) UD IH SCH ×7 (00:50→23:44)
[2017-06-27] MEDS: levETIRAcetam 500mg IVPB 500 MG/100 ML BAG IVPB SCH ×2 (14:15→21:26)
--- NOTE | 2017-06-27 20:43 | PN ---
SUBJECTIVE: A 77-year-old white female with history of metastatic small cell carcinoma of intraabdominal cavity, dementia, and seizure disorder. The patient has been on hospice in hospital, was made a DNR by the family. PHYSICAL EXAMINATION: The patient is found in a semicomatose state, unarousable. This morning, pupils were fixed and dilated. Family is at the bedside. The patient has unlabored respirations. Her vital signs are stable. She has upgoing Babinski bilaterally and mild clonus to the left foot. The abdomen is soft. There is no perceivable pain on palpation. Chest is clear to auscultation and percussion. Heart examination reveals sinus rhythm. IMPRESSION: A 77-year-old white female in comatose state, on hospice. Family at the bedside. PLAN: To continue supportive palliative care. Darinel Wallace MD
[2017-06-28] MEDS: Albuterol-Ipratrop 3 mg / 0.5 (3 ml) UD IH SCH ×7 (03:25→23:44)
[2017-06-28] MEDS: levETIRAcetam 500mg IVPB 500 MG/100 ML BAG IVPB SCH ×2 (09:30→22:24)
--- NOTE | 2017-06-28 16:26 | PN ---
DATE: SUBJECTIVE: Patient is 77 years old, seen and examined, lying in bed, seems to be comfortable, not in any distress. Family by the bedside. PHYSICAL EXAMINATION: VITAL SIGNS: She is afebrile, pulse 116, respirations 20, blood pressure 143/80. LUNGS: Bilateral fair air flow. No rhonchi or crackles. HEART: S1 and S2 audible. ABDOMEN: Soft, nontender. No rebound. No guarding. NEUROLOGIC: She is sedated and hardly open eyes on verbal command. ASSESSMENT: 1. Metastatic small cell carcinoma. 2. History of seizure disorder. 3. Dementia. 4. History of depression. PLAN: Currently, the patient is on Dilaudid as needed. She is getting Keppra. She is getting Ativan every 6 hours. We will continue that. Discussed with the patient's daughter. She seems to be happy with current management. Robby Matt MD
--- NOTE | 2017-06-29 02:22 | CON ---
DATE OF VISIT: 06/28/2017 This is [facility] [place] [facility] visit on hospice. For Dr. Stevenson. 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 HISTORY OF PRESENT ILLNESS: The patient is a 77-year-old female, seen lying, lethargic, in bed with family at the bedside, now recommended for comfort measures inpatient hospice with the seizure activity in the recent past, worsening delirium, confusion and disorientation with patient's pain now significantly improved, resting comfortably. ALLERGIES: NO KNOWN ALLERGIES. PAST MEDICAL HISTORY: As above with metastatic ovarian cancer?, hypertension, recent dementia and seizure disorder. MEDICATIONS: Include Lorazepam, Benadryl, Dilaudid, Dulcolax Duoneb, Keppra, and Tylenol. FAMILY HISTORY AND SOCIAL HISTORY: Noncontributory. REVIEW OF SYSTEMS: Unable to perform due to patient's condition. PHYSICAL EXAMINATION VITAL SIGNS: Temperature 97.7, pulse 119, respirations 22, blood pressure 122/84, pulse ox 91%. GENERAL: The patient is lethargic, does not respond to verbal commands. HEENT: Otherwise unremarkable. NECK: No nodes. HEART: Tachy rate, regular rhythm. LUNGS: Decreased breath sounds. ABDOMEN: Soft. EXTREMITIES: +1 edema. NEUROLOGIC: Lethargic, sedated. SKIN: Warm and dry. 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 PLAN: For this patient is to continue the present medical regimen and hospice care. It should be noted that the patient was seen with the family at the bedside with patient's families questions answered to the best of my ability. The prognosis for this patient is grave. Jonatan Wiggins MD
[2017-06-29] MEDS: Albuterol-Ipratrop 3 mg / 0.5 (3 ml) UD IH SCH ×5 (04:47→19:55)
[2017-06-29] MEDS: levETIRAcetam 500mg IVPB 500 MG/100 ML BAG IVPB SCH ×2 (11:19→22:11)
[2017-06-29] MEDS: Sodium Chloride 0.9% 1,000 ML IV SCH (17:39)
--- NOTE | 2017-06-29 19:49 | PN ---
DATE: SUBJECTIVE: The patient is 77 years old, seen and examined, seems to be comfortable and sleepy, minimally arousable. PHYSICAL EXAMINATION: VITAL SIGNS: Temperature 99.3, pulse 125, respirations 22, and blood pressure 152/92. LUNGS: Bilateral fair airflow. HEART: She seems to be tachycardic. NEUROLOGICAL: She is sleepy, barely arousable. ASSESSMENT: 1. Metastatic small cell carcinoma. 2. History of seizure disorder. 3. Depression. 4. Lethargy. PLAN: We will continue the patient on current management. She is receiving Ativan every 6 hours. She is on Dilaudid 0.5 every 6 hours as needed. She is on Keppra to control her seizures. We will keep her comfortable. Robby Matt MD
--- NOTE | 2017-06-29 20:25 | PN ---
DATE: 06/29/2017 This is the patient's hospital visit in hospice. For Dr. Stevenson. 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 However, the patient is not taking p.o. at all at this point with consideration for lawful IV fluids as per Dr. Stevenson's recommendation. With this, the patient is otherwise in no acute distress. PHYSICAL EXAMINATION VITAL SIGNS: Temperature 99.3, pulse 125, respirations 22, blood pressure 152/92 with a pulse ox of 96%. HEENT: The patient is unresponsive to verbal stimuli. NECK: No nodes. HEART: Tachy rate. Regular rhythm. LUNGS: Decreased breath sounds. ABDOMEN: Soft. EXTREMITIES: +1 edema to feet. 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 PLAN: Continue present plan with lawful IV fluids and normal saline at 60 mL an hour to be given with hospice protocols to continue with comfort measures to continue. Jonatan Wiggins MD
[2017-06-30] MEDS: Albuterol-Ipratrop 3 mg / 0.5 (3 ml) UD IH SCH ×7 (00:05→23:50)
[2017-06-30] MEDS: levETIRAcetam 500mg IVPB 500 MG/100 ML BAG IVPB SCH ×2 (09:55→21:12)
[2017-06-30] MEDS: Sodium Chloride 0.9% 1,000 ML IV SCH (10:54)
--- NOTE | 2017-06-30 19:05 | PN ---
SUBJECTIVE: The patient is 77 years old, seen and examined, seem to be comfortable, sleepy, daughter by the bedside. PHYSICAL EXAMINATION VITAL SIGNS: She is afebrile, pulse 119, respirations 22 and blood pressure 148/89. LUNGS: Bilateral fair airflow. No rhonchi or crackle. HEART: S1 and S2 audible, tachycardic. ABDOMEN: Soft. NEUROLOGICALLY: She is sedated and sleepy. ASSESSMENT: 1. Metastatic gynecological malignancy. 2. History of seizure disorder. 3. Sinus tachycardia. 4. History of hypertension. PLAN: We will keep the patient comfortable. She is on Ativan 1 mg q. 6. She is on Dilaudid 0.5 every 6 hours and we will keep her on IV fluid and she is on hospice care. Robby Matt MD
[2017-06-30] MEDS: HYDROmorphone 0.5 mg/0.5 ml ISec IVP PRN (19:14)
--- NOTE | 2017-06-30 19:39 | PN ---
DATE: 06/30/2017 This is [facility]'s hospital visit on the medical floor. For Dr. Stevenson. SUBJECTIVE: The patient is a 77-year-old hospice patient of Dr. Wallace seen lying supine with family at the bedside, in no acute distress, now opening her eyes and being more alert as per her after lawful IV fluids were began. The patient's p.o. intake was significantly diminished recently. She is otherwise resting comfortably in no acute distress. OBJECTIVE/PHYSICAL EXAMINATION: VITAL SIGNS: Temperature 98.9, pulse 119, respirations 22, blood pressure 140/89, and pulse oximetry 98%. GENERAL: No apparent distress. HEENT: Eyes are open. NECK: Supple. HEART: Tachy rate, regular rhythm. LUNGS: Decreased breath sounds. ABDOMEN: Soft. EXTREMITIES: Edema 1+ of the feet. NEUROLOGIC: Opens eyes to command. ASSESSMENT: For this patient is that of end-stage stage IV metastatic small cell carcinoma gynecological origin, seizure disorder, failure to thrive, and hospice care. PLAN: Is to continue to make her comfortable as per hospice protocols with prognosis grave. Jonatan Wiggins MD
[2017-07-01] MEDS: Albuterol-Ipratrop 3 mg / 0.5 (3 ml) UD IH SCH ×5 (03:05→20:49)
[2017-07-01] MEDS: levETIRAcetam 500mg IVPB 500 MG/100 ML BAG IVPB SCH ×2 (09:56→21:52)
--- NOTE | 2017-07-01 15:28 | PN ---
DATE: SUBJECTIVE: Ms. Evans is a 77-year-old white female, on hospice. The patient is on a vegetative state, minimal response, has taken some sips of apple juice in the last 24 hours, but minimal wakening. The patient has had some missing and crying in the last 24 hours. Today, she is in a non-arousable state. PHYSICAL EXAMINATION: Vital signs are stable. She is afebrile. She does have some mild clonus of her toes with upgoing Babinski bilaterally. Pupils were fixed and dilated. Respirations are stable. Heart rate is slightly elevated to 122, blood pressure is 170/106, temperature is 98.6. Chest is clear to auscultation. Heart examination reveals sinus rhythm. FINAL DIAGNOSIS: The patient has metastatic stage IV intraabdominal small cell carcinoma. Prognosis is poor. Continue hospice care and palliative care. Darinel Wallace MD
[2017-07-01] MEDS: HYDROmorphone 0.5 mg/0.5 ml ISec IVP PRN (15:45)
[2017-07-02] MEDS: Albuterol-Ipratrop 3 mg / 0.5 (3 ml) UD IH SCH ×6 (00:15→20:17)
[2017-07-02] MEDS: levETIRAcetam 500mg IVPB 500 MG/100 ML BAG IVPB SCH ×2 (09:33→22:00)
[2017-07-02] MEDS: HYDROmorphone 0.5 mg/0.5 ml ISec IVP PRN (16:19)
--- NOTE | 2017-07-02 20:28 | PN ---
SUBJECTIVE: A 77-year-old white female on hospice, intraabdominal metastatic stage IV small-cell carcinoma. The patient is on hospice. She is in a comatose state. She has history of seizure. She is having myoclonus and nystagmus of the eyes without purposeful movements. She has not eaten or had any liquids in the last 24 hours. She is on IV fluids. Family is at the bedside. Vital signs are stable. Plan is to continue palliative care and hospice care. Darinel Wallace MD
[2017-07-03] MEDS: Albuterol-Ipratrop 3 mg / 0.5 (3 ml) UD IH SCH ×6 (01:02→19:58)
[2017-07-03] MEDS: HYDROmorphone 0.5 mg/0.5 ml ISec IVP PRN ×2 (06:07→16:14)
--- NOTE | 2017-07-03 09:19 | PN ---
DATE: SUBJECTIVE: A 77-year-old white female, end-stage carcinoma of the intra-abdominal cavity, dementia, seizure disorder. The patient is on hospice, DNR, DNI. The patient is stable, less swollen. Still making urine. She is unresponsive. She is in a vegetative state at this point. Family is at bedside. PLAN: Palliative care. Darinel Wallace MD
[2017-07-03] MEDS: levETIRAcetam 500mg IVPB 500 MG/100 ML BAG IVPB SCH ×2 (10:36→21:19)
[2017-07-03] MEDS: Sodium Chloride 0.9% 1,000 ML IV SCH (19:23)
[2017-07-04] MEDS: Albuterol-Ipratrop 3 mg / 0.5 (3 ml) UD IH SCH ×6 (01:06→20:05)
--- NOTE | 2017-07-04 01:27 | PN ---
DATE OF VISIT: 07/03/2017 This is the patient's hospital visit on hospice. For Dr. Stevenson. SUBJECTIVE: The patient is a 77-year-old female, seen lying comatose in bed with her at the bed side with discussion early with Dr. Stevenson regarding her unfortunate prognosis with recommendation for hospice to continue. She did receive Dilaudid earlier today, which nurse reports, subsided her discomfort as was by facial grimace and elevated blood pressure with the patient appearing in no acute distress. OBJECTIVE AND PHYSICAL EXAMINATION: VITAL SIGNS: Temperature down to 98, it was 101 earlier today; pulse of 109; respirations 20; blood pressure 130/67 with pulse ox 97%. HEENT: Unremarkable. She does not open her eyes to command. NECK: No nodes. HEART: Tachy rate, regular rhythm. LUNGS: Scattered rhonchi. ABDOMEN: Soft. EXTREMITIES: +1 edema. NEUROLOGIC: Comatose, unresponsive to verbal stimuli. 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 PLAN: Continue hospice, DNR/DNI with prognosis grave. Also spoken to her who is at the bedside. Jonatan Wiggins MD
[2017-07-04] MEDS: HYDROmorphone 0.5 mg/0.5 ml ISec IVP PRN ×2 (05:30→16:13)
--- NOTE | 2017-07-04 09:44 | PN ---
SUBJECTIVE: A 77-year-old white female, on hospice, in a vegetative state. PHYSICAL EXAMINATION: VITAL SIGNS: Temperature 99.6, pulse 109, blood pressure 166/97. GENERAL: The patient has not been responsive over the last 48 hours. HEENT: She has dilated and oscillating pupils and fixed. She also has myoclonus of the feet with upcoming Babinski bilaterally. She has inoperable, metastatic, stage IV intraabdominal small cell carcinoma. The patient has been made a DNR/DNI by the family. She is on hospice care. We will plan to continue palliative care. Darinel Wallace MD
[2017-07-04] MEDS: levETIRAcetam 500mg IVPB 500 MG/100 ML BAG IVPB SCH ×2 (10:14→22:18)
[2017-07-04] MEDS: Sodium Chloride 0.9% 1,000 ML IV SCH (14:48)
[2017-07-05] MEDS: Albuterol-Ipratrop 3 mg / 0.5 (3 ml) UD IH SCH ×5 (01:01→15:31)
--- NOTE | 2017-07-05 02:24 | PN ---
DATE: 07/04/2017 This is patient with hospital for hospital visit for hospice on the medical floor. For Dr. Stevenson. SUBJECTIVE: The patient is a 77-year-old female seen on the medical floor on hospice with her at the bedside with the patient now lying comatose, unresponsive to command. OBJECTIVE/PHYSICAL EXAMINATION VITAL SIGNS: Vital signs temperature 98.8, pulse 87, respirations 18, blood pressure 122/83, pulse oximetry 97%. HEENT: Pupils are fixed. NECK: Supple.. HEART: Regular rate. LUNGS: Scattered rhonchi. ABDOMEN: Soft. EXTREMITIES: +1 edema. NEUROLOGIC: No spontaneous movement or response to verbal command. SKIN: Warm and dry. ASSESSMENT: End-stage stage IV metastatic small cell carcinoma of the gynecological origin, seizure disorder, failure to thrive, hospice. PLAN: To continue hospice, DNR/DNI as per attending. Prognosis is grave. Jonatan Wiggins MD
[2017-07-05 07:36] VITALS: BP 168/96; PULSE 119; RESP 20; TEMP 97.7; O2SAT 98
[2017-07-05] MEDS: levETIRAcetam 500mg IVPB 500 MG/100 ML BAG IVPB SCH (11:34)
[2017-07-05] MEDS: Sodium Chloride 0.9% 1,000 ML IV SCH (15:38)
--- NOTE | 2017-07-05 20:07 | PN ---
LOCATION: The patient is in room 561, bed 1. The patient is in inpatient hospital at this point. SUBJECTIVE: The patient is seen in the medical floor, on hospice. The family at bedside. The patient is currently comatose and unresponsive. PHYSICAL EXAMINATION VITAL SIGNS: As stated in the chart. T-max of 98.4, pulse is 87, respirations 18, blood pressure 122/83, pulse oximetry . HEART: Regular rate. LUNGS: Scattered rhonchi. ABDOMEN: Soft and protuberant. EXTREMITIES: +1 edema. NEUROLOGIC: The patient but responds to verbal command. ASSESSMENT: The patient is end-stage stage IV metastatic carcinoma of gynecologic origin. Currently, on supportive measures only. PLAN: We will continue hospice, DNR, DNI, and pain medicines and medications for restlessness. Family has been counseled several times. Jaida Stevenson MD
--- NOTE | 2017-07-06 23:13 | CP.PCM.DIS ---
Provider - Provider Date of Admission: 06/25/17 17:37 Attending physician: Darinel Wallace MD Primary care physician: Darinel Wallace MD Time Spent in preparation of Discharge (in minutes): 45 Hospital Course - Hospital Course Hospital Course: 1. Stage IV small cell cancer 2. Altered mental status 3. failure to thrive - Date & Time of H&P Date of H&P: 07/05/17 Time of H&P: 18:00 Discharge Exam - Head Exam Head Exam: NORMAL INSPECTION - Eye Exam Eye Exam: Normal appearance - ENT Exam ENT Exam: absent: Mucous Membranes Dry, Mucous Membranes Moist, Normal Exam, Normal External Ear Exam, Normal Oropharynx, TM's Normal Bilaterally - Neck Exam Neck exam: Full Rom, Lymphadenopathy, Meningismus, Normal Inspection, Tenderness , Thyromegaly - Respiratory Exam Respiratory Exam: NORMAL BREATHING PATTERN - Cardiovascular Exam Cardiovascular Exam: REGULAR RHYTHM, +S1, +S2 - GI/Abdominal Exam GI & Abdominal Exam: Normal Bowel Sounds - Extremities Exam Extremities exam: normal inspection - Neurological Exam Neurological exam: Altered - Skin Skin Exam: Normal Color, Warm Discharge Plan - Follow Up Plan Condition: CRITICAL Disposition: HOSPICE - HOME Instructions: Dehydration (DC), Urinary Tract Infection in Women (DC), Nonepileptic Seizures (DC) Additional Instructions: Joi is going home on hospice care. Education was provided as to changing her position at least every 2 hours to maintain skin integrity. Barrier cream was given to the family. She is going home with an indwelling pino catheter. Meticulous skin care must be given to her groin and perineal area to maintain her dry skin and to prevent a Urinary Tract Infection. Her head of bed needs to be elevated at least 30 degrees when feeding her or administering medication. The foam wedge is being sent home with her, should be covered in a pillowcase, and utilized to keep her in a sidelying position for skin integrity. Her heels should be floated by placing a pillow beneath her calves for skin integrity. Her IV access is being removed prior to her discharge. She will continue her meds, per Dr. Wallace's orders. Report given to Hospice Nurse when he visited with the family and the aforementioned points were discussed. Referrals: Darinel Wallace MD [Primary Care Provider] -
== END 2017-07-05 17:21 | disposition hospice, home (50) | DRG 755 ==
LOC: 5RNO 17:37
PROVIDERS: ADMIT Internal Medicine; ATTEND Internal Medicine
DX: C53.9 Malignant neoplasm of cervix uteri, unspecified (principal); C79.89 Secondary malignant neoplasm of other specified sites; R40.3 Persistent vegetative state; Z51.5 Encounter for palliative care; Z66 Do not resuscitate; F03.90 Unspecified dementia, unspecified severity, without behavioral disturbance, psychotic disturbance, mood disturbance, and anxiety; I10 Essential (primary) hypertension; G40.909 Epilepsy, unspecified, not intractable, without status epilepticus; R62.7 Adult failure to thrive; F32.9 Major depressive disorder, single episode, unspecified; R53.83 Other fatigue